=== PATIENT | female | born 1945 | race Caucasian/White ===

== ENCOUNTER 2022-04-07 16:17 | Inpatient (IN) | payer MEDICARE, OTHER, SELFPAY ==
--- NOTE | ~2022-04-07 | XR_ITS ---
EXAMINATION: XR CHEST CLINICAL INFORMATION: Worsening shortness of breath COMPARISON: CT chest 04/07/2022 TECHNIQUE: Frontal view of the chest was obtained. FINDINGS: The lungs are slightly hyperexpanded and there are bilateral upper lobe predominant chronic emphysematous changes. There are multiple overlapping bronchovascular structures overlying the right lower lung zone. No definite focal opacities are seen. There is no pleural effusion or pneumothorax. Cardiomediastinal contours are unremarkable. Structures of the chest wall are intact. There is dense contrast within the stomach from recent fluoroscopic evaluation.. XR/XR chest 1V IMPRESSION: Chronic changes of the lungs without acute process.
--- NOTE | ~2022-04-07 | US_ITS ---
EXAMINATION: US PELVIS CLINICAL INFORMATION: Mass seen on CT scan. Status post hysterectomy and left nephrectomy. COMPARISON: CT scan of 04/07/2022. TECHNIQUE: Ultrasound of the pelvis is performed using both transabdominal and transvaginal transducers along with Doppler. Transvaginal imaging is performed due to inadequate visualization transabdominally. FINDINGS: UTERUS: Status post hysterectomy. ADNEXA: By history, patient is status post left oophorectomy. No left adnexal masses appreciated. RIGHT OVARY MEASURES: 3.1 x 3.5 x 2.9 cm. Volume of 16.5. There is normal vascular flow present. There are 2 simple-appearing cysts, one measuring 3.1 x 3.1 x 2.4 cm in size and the other measuring 0.9 x 0.7 x 0.7 cm in size. No suspicious solid masses identified. US/US pelvic and transvaginal IMPRESSION: Status post hysterectomy and left oophorectomy. Two adjacent simple-appearing right adnexal cysts.
--- NOTE | ~2022-04-07 | US_ITS ---
EXAMINATION: US VENOUS ULTRASOUND WITH DOPPLER LOWER EXTREMITY, LEFT CLINICAL INFORMATION: Edema. COMPARISON: None TECHNIQUE: Ultrasound of the deep veins is performed from the hip to the calf with compression sonography and color and pulse Doppler assessment. Spectral analysis with color-flow imaging is performed. FINDINGS: There is normal venous compression and respiratory variation and augmented flow. The visualized common femoral vein, superficial femoral vein, profunda femoral vein, popliteal vein, and the trifurcation region shows no evidence of deep venous thrombosis. There is no significant popliteal fossa cyst. If the patient's symptoms persist, followup ultrasound in 5 days 7 days might be of value to exclude proximal propagation from a non-visualized calf vein. US/US venous duplex LE LT IMPRESSION: No DVT demonstrated in the left lower extremity.
--- NOTE | ~2022-04-07 | CT_ITS ---
EXAMINATION: CT ANGIOGRAM OF THE CHEST WITH CONTRAST (CT PULMONARY ANGIOGRAM FOR PE) CT ABDOMEN/PELVIS WITH CONTRAST CLINICAL INFORMATION: Reason for Exam + dimer , sob . Diffuse abdominal pain. COMPARISON: None TECHNIQUE: Prior to contrast administration, noncontrast localization images were obtained. Subsequently, multidetector volumetric imaging was performed from the thoracic inlet through the pubic symphysis following the administration of 85 mL Omnipaque 350 intravenous contrast. Postcontrast images of the chest were acquired during the pulmonary angiographic phase, while imaging through the abdomen and pelvis was performed during the portal venous phase. No contrast reaction reported Sagittal, coronal, and MIP oblique sagittal reformatted images were obtained on the CT workstation, uploaded to PACS, and reviewed. This CT examination was performed using dose optimization techniques as appropriate, variously including the following: *Automated exposure control *Adjustment of mA and/or kV according to patient size (this includes techniques or standardized protocols for targeted exams where dose is matched to indication/reason for exam; i.e. extremities or head) *Use of iterative reconstruction technique Total exam dose-length product 539 mGy-cm FINDINGS: QUALITY OF STUDY/CONTRAST BOLUS: Satisfactory. PULMONARY ARTERIES: No central or segmental pulmonary emboli. THORACIC AORTA: No aneurysm or dissection. LUNG: Moderate to severe emphysema. Diffuse mild bronchial thickening without bronchiectasis. No pulmonary nodules, masses or consolidation. PLEURA: No pleural effusion or pneumothorax. MEDIASTINUM: Normal heart size. Triple vessel coronary calcifications. No pericardial effusion. No hilar or mediastinal lymphadenopathy. No evidence of septal bowing or right heart strain. No reflux of contrast into the hepatic veins to suggest elevated right heart pressures. CHEST WALL/AXILLA: No axillary or internal mammary lymphadenopathy. HEPATOBILIARY: Liver normal in size, contour and morphology. No suspicious lesions. No intra or extrahepatic biliary dilation. Gallbladder unremarkable. PANCREAS: No pancreatic mass or inflammation. There are a few coarse calcifications scattered throughout the pancreas consistent with sequela of previous pancreatitis. SPLEEN: Unremarkable. ADRENAL GLANDS: Unremarkable. morphology demonstrating symmetric enhancement. There are benign bilateral simple renal cysts. No follow-up required. No suspicious renal cysts or masses. No hydronephrosis or perinephric abnormality.. GASTROINTESTINAL TRACT: No bowel related abnormalities. Normal appendix. PELVIC VISCERA: There is a 3.3 cm cyst in the adnexa, below a 2.3 cm solid appearing structure which may represent the right ovary, although could represent an ovarian mass. Left ovary not seen. Hysterectomy. LYMPH NODES: No lymphadenopathy. PERITONEUM/BODY WALL: Unremarkable. VASCULAR STRUCTURES: Status post aortic iliac endovascular stent graft repair. A left renal artery stent is also present. Vascular structures are patent. OSSEOUS STRUCTURES: No acute or suspicious osseous abnormalities. CT/CT abdomen pelvis w IV con IMPRESSION: * No pulmonary embolism. * No acute findings within the chest, abdomen or pelvis. * Moderate to severe emphysema. * Triple vessel coronary calcifications. * There is a 3.3 cm cyst in the right adnexa, below a 2.3 cm solid appearing structure which may represent the right ovary, although could represent an ovarian mass. Recommend nonemergent pelvic ultrasound for further evaluation VTE: negative
--- NOTE | ~2022-04-07 | NM_ITS ---
Lexiscan Myocardial perfusion study Indication: Coronary artery disease, assess for ischemia Technique: The patient was brought in for a Lexiscan perfusion study on 04/17/2022 and was injected 0.4 mg of Lexiscan intravenously. Within a minute of this injection 25 mCi of sestamibi was given intravenously. Images were obtained using the SPECT gamma camera interlaced with the gating device. Images were obtained in supine position. Resting perfusion study was performed on 04/16/2022. Patient was administered 25 mCi of sestamibi intravenously at rest. Images were then obtained in supine position. Images were processed with the software and compared side to side in short axis, horizontal long axis and vertical long axis views. Total DLP 93mGy-cm. Findings: Raw acquisition reviewed. Arms by the patient's side. The stress perfusion study showed diminished tracer uptake in the apical part of anterior wall. This is more prominent with CT attenuation correction. Mildly reduced tracer uptake in the basal part of inferior septum and distal inferior wall. No significant change with CT attenuation correction. The gated study shows normal LV systolic function with calculated LVEF of 51%. LV cavity is normal in size. The gated study shows normal wall thickening and contraction of segments. Resting study shows diminished tracer uptake in the distal part of inferior wall, inferolateral wall. There is also adjacent GI tracer uptake. Slightly reduced tracer uptake in the distal part of anterior wall. Gating at rest reveals normal wall motion with ejection fraction at 64%. The findings are consistent with probable mild fixed apical anterior defect. Fixed basal inferior/inferoseptal defect. Probable fixed distal inferior defect but there is also subdiaphragmatic uptake. Overall, suboptimal. NM/NM jovany perf SPECT rest & str Impression: 1. 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 Suboptimal study. 2. Gated LVEF is 51% during stress and 64% during rest. 3. Transient ischemic dilatation not present. EKG component of the test reported separately.
--- NOTE | ~2022-04-07 | FL_ITS ---
EXAMINATION: FL BARIUM SWALLOW CLINICAL INFORMATION: Epigastric pain and dysphagia. COMPARISON: None. TECHNIQUE: Barium swallow examination is performed using fluoroscopic evaluation in addition to multiple fluoroscopic spot views. The patient is imaged both upright and prone and using both thick and thin sulfate along with effervescent granules. Fluoroscopy time: 1.9 minutes. DAP: 4.917 Gy-cm2. Images: 35. FINDINGS: There is normal apposition of the focal cords while saying E . There is normal elevation of the soft palate while saying candy . Patient swallowed half-inch diameter barium tablet without difficulty. There was 1 episode of coughing during the procedure at which time there was noted to be some barium present above the cords consistent with penetration but not luis aspiration. No Zenker's diverticulum identified. No cricopharyngeal hypertrophy. There is noted to be generalized hypomotility of the esophagus with some tertiary contractions being evident. No persistent esophageal stricture is identified. No mucosal abnormality is seen. There were times of columnization of the esophagus where the gastroesophageal junction did not open; however, a couple of times the gastroesophageal junction appeared unremarkable. The above finding could be related to achalasia or esophageal emptying dysfunction of other etiology. There was no gastroesophageal reflux with water siphon test. FL/FL barium swallow IMPRESSION: No esophageal stricture or mucosal abnormality identified. 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 Single episode of pharyngeal penetration without tracheal aspiration.
--- NOTE | ~2022-04-07 | CT_ITS ---
EXAMINATION: CT ABDOMEN AND PELVIS WITH CONTRAST CLINICAL INFORMATION: Lower abdominal pain COMPARISON: CT abdomen pelvis with IV contrast 04/07/2022. TECHNIQUE: Multidetector volumetric images were obtained from the superior aspect of the liver through the pubic symphysis following administration 85 mL of Omnipaque 350 intravenous contrast. Sagittal and coronal reformatted images were obtained on the technologist's workstation. Oral contrast: No This CT examination was performed using dose optimization techniques as appropriate, variously including the following: *Automated exposure control *Adjustment of mA and/or kV according to patient size (this includes techniques or standardized protocols for targeted exams where dose is matched to indication/reason for exam; i.e. extremities or head) *Use of iterative reconstruction technique DLP: 419 mGy-cm FINDINGS: LUNG BASES: Heart size is normal. There is left basilar atelectasis.. Mild thickening of left inferior major fissure is noted. LIVER, GALLBLADDER, AND BILIARY TREE: The liver is normal in size, shape, and attenuation. No focal hepatic lesion or biliary ductal dilatation is present. The gallbladder is unremarkable with no evidence of radiopaque gallstones, gallbladder wall thickening, or obvious pericholecystic inflammatory changes. PANCREAS: Unremarkable. SPLEEN: Unremarkable. ADRENAL GLANDS: Unremarkable. KIDNEYS AND URETERS: The kidneys are normal in size, shape, and attenuation. No hydronephrosis, hydroureter, or calculi seen. No perinephric stranding. There is a 2.9 x 2.5 cm cyst midpole right kidney. A punctate left cortical renal cyst as well. Bilateral extrarenal kidney pelvises are noted. BLADDER: The bladder is distended without bladder wall thickening or radiopaque calculi. GASTROINTESTINAL TRACT: There is scattered stool and gas seen throughout the colon without distention. The small bowel loops are normal caliber. There is no free air or free fluid. Mild persisting of mesentery is seen in the right mid pelvis but no pneumatosis, free air, edema or abnormal lymph nodes seen. It is best visualized on coronal images 23 through 34/6. No free air or free fluid seen. Minimal left paracolic fluid collection is seen. ABDOMINAL WALL: There is a small area of fluid collection the left proximal inguinal ring measuring 2.6 x 2.4 cm and 12 Hounsfield units. No solid component seen. Minimal edema seen in the lower anterior abdominal wall.. LYMPH NODES: No abnormal size lymph nodes seen. VASCULAR: Mild atherosclerotic aneurysmal changes seen in the proximal abdominal aorta with 3.4 x 3.2 cm measurements. There is aortoiliac graft stent from the distal abdominal aorta to common femoral arteries a left renal stent is noted in place. PELVIC VISCERA: Unremarkable. OSSEOUS STRUCTURES: Mild degenerative disc changes L4-L5 and 11-2 disc levels is noted. No aggressive lytic or sclerotic process seen. CT/CT abdomen pelvis w IV con IMPRESSION: 1. Mild mesenteric edema in the right mid pelvis but no pneumatosis, free air or free fluid seen. 2. Minimal left paracolic fluid collection. 3. Small fluid collection in the left proximal inguinal ring. 4. Mild constipation. 5. Bilateral renal cysts. No radiopaque renal calculi or hydronephrosis. Fleischner guidelines were followed.
[2022-04-07 17:35] VITALS: BP 144/90; PULSE 82; RESP 16; O2SAT 92; BMI 23.0
--- NOTE | 2022-04-07 17:44 | ECG_ITS ---
Test Reason : CHEST PAIN Blood Pressure : / mmHG Vent. Rate : 077 BPM Atrial Rate : 077 BPM P-R Int : 148 ms QRS Dur : 082 ms QT Int : 386 ms P-R-T Axes : 050 055 065 degrees QTc Int : 436 ms Artifact in tracing Sinus rhythm with occasional Premature ventricular complexes Otherwise normal ECG No previous ECGs available Referred By: Generic ED Physician Electronically Signed By:ZOFIA DAIGLE
[2022-04-07 18:30] LABS: MANUAL DIFF FLAG NO
[2022-04-07 18:31] LABS: Basophils Percent Auto 0.3 % (0-2); Eosinophils Absolute Auto 0.1 X10*3/uL (0.0-0.4); Eosinophils Percent Auto 0.8 % (0-4); Hematocrit 46.4 % (37.0-47.0); Hemoglobin 15.8 g/dl (12.0-16.0); Imm Gran Abs Auto 0.06 X10*3/uL (0.00-0.03); Imm Gran Pct Auto 0.7 % (0.0-0.4); Lymphocytes Absolute Auto 0.9 X10*3/uL (1.2-4.9); Lymphocytes Percent Auto 10.4 % (20-40); Mean Corpuscular HGB Conc 34.1 g/dl (31.0-35.0); Mean Corpuscular Hemoglobin 32.3 pg (27.0-33.0); Mean Corpuscular Volume 94.9 fL (80.0-98.0); Mean Platelet Volume 9.8 fL (9.4-12.3); Monocytes Absolute Auto 0.9 X10*3/uL (0.1-1.2); Monocytes Percent Auto 10.3 % (2-11); Neutrophils Absolute Auto 6.9 x10*3/uL (2.0-8.3); Neutrophils Percent Auto 77.5 % (45-73); Platelet Count 243 X10*3/uL (160-400); Red Blood Count 4.89 X10*6/uL (4.20-5.50); Red Cell Distribution Width 14.6 % (11.0-16.0); White Blood Count 8.8 X10*3/uL (4.8-10.8)
--- NOTE | 2022-04-07 18:31 | PC.NURSE ---
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 AOx 4 neuros intact ABD soft tender with some guarding LUQ and LLQ. IV access obtained labs collected and sent. Placed on 1.5 L of O2 does not wear at baseline.
[2022-04-07 19:05] VITALS: BP 147/84; PULSE 84; RESP 21; O2SAT 95
--- NOTE | 2022-04-07 19:14 | ED.GENADULT ---
HPI - General Adult General Chief complaint: Abdominal Pain Stated complaint: sob abd pain, back Time Seen by Provider: 04/07/22 18:27 Source: patient Mode of arrival: ambulatory Limitations: no limitations History of Present Illness HPI narrative: This is a 76-year-old female history of COPD, CHF, aortic valve repair years ago presenting to the emergency department with multiple complaints x2 weeks. Patient reports she has been having diffuse abdominal pain that radiates in her back described as constant in nature, progressively worsening, alternates between an aching and stabbing pain. Also complaining of worsening shortness of breath particularly with exertion but also experiencing at at rest. Patient tells me when she walks she feels very winded and this is very unlike her. She reports her lower extremities have also been more swollen than usual, she reports bilateral lower extremities are swollen. Patient reports that she was at [facility] for 3 days few days before Edward she was hospitalized for COPD/CHF. She tells me that she got an ultrasound of bilateral lower extremities done which was normal Related Data Allergies Allergy/AdvReac Type Severity Reaction Status Date / Time lisinopril [LISINOPRIL] Allergy Intermediate MUSCLE Verified 04/07/22 20:49 WEAKNESS duloxetine Allergy Unknown Verified 04/07/22 21:08 hydrochlorothiazide AdvReac Unknown Verified 04/07/22 21:07 [facility] Social History Social History Alcohol intake: never Smoked in Last 30 Days: No Use of substances other than those prescribed or required for medical reasons: No Advance Directives: No Advance Directives Information Provided: No Physical Exam ED Vital Signs: Vital Signs - 24 hr 04/07/22 17:35 04/07/22 19:05 04/07/22 20:13 Pulse Rate 82 84 103 H Respiratory Rate 16 21 H 18 Blood Pressure 144/90 H 147/84 H 113/64 Pulse Oximetry 92 95 94 Oxygen Delivery Method Room Air Room Air Room Air 04/07/22 20:51 04/07/22 21:56 04/07/22 23:59 Pulse Rate 85 82 Respiratory Rate 20 20 21 H Blood Pressure 138/91 H 114/73 Pulse Oximetry 93 Oxygen Delivery Method Nasal Cannula Genao BMI result Body Mass Index 23.0 Course Reevaluation(s) Reevaluation #1: CBC appears to be within normal limits. Chemistry pending however normal troponin, BNP slightly elevated 206, patient's bilateral lower extremities edematous, will give 40 of IV Lasix. Influenza, RSV, COVID negative. To note patient was placed on 2 L of nasal cannula after she ambulated as she desaturated down to mid 80s. Time: 21:06 Reevaluation #2: CT of the abdomen pelvis with no acute findings within the chest, abdomen or pelvis. Moderate to severe emphysema noted. No PE. Triple-vessel coronary calcifications noted. 3.3 cm cyst in the right adnexa. 2.3 solid-appearing structure in the right ovary which could represent ovarian mass. Time: 00:09 Medications Administered Discontinued Medications Generic Name Dose Route Start Last Admin Trade Name Freq PRN Reason Stop Dose Admin Furosemide 40 mg 04/07/22 19:36 04/07/22 20:50 Furosemide 40 Mg/4 Ml Vial IVPUSH 04/07/22 19:37 40 mg ONCE ONE Administration Protocol Iohexol 100 ml 04/07/22 22:09 04/07/22 22:09 Iohexol 350 Mg/Ml 100 Ml Infus..Btl IV 04/07/22 22:10 85 ml ONCE ONE Administration Morphine Sulfate 4 mg 04/07/22 19:46 04/07/22 20:51 Morphine Sulfate 4 Mg/Ml Cartridge IVPUSH 04/07/22 19:47 4 mg ONCE ONE Administration Protocol Medical Decision Making Medical Decision Making [facility] Narrative: 76-year-old female who presents shortness of breath, abdominal pain since before . Physical examination with diffusely tender abdomen. No signs of peritonitis however. Concerns for possible PE versus DVT. Unlikely acute abdomen. Differentials include gas pain, UTI, COPD, CHF, ACS. Differential Diagnosis Differential Diagnoses: The differential diagnosis associated with the presentation includes Concerns for possible PE versus DVT. Unlikely acute abdomen. Differentials include gas pain, UTI, COPD, CHF, ACS. Admission/Observation Consideration of admission/observation: Escalation of care including admission/observation considered Patient should be admitted to the hospital Consult Healthcare Provider Management of the patient was discussed with: Hospitalist Lab Data [facility] Lab Attestation statement: I reviewed the patient's lab results. Result Diagrams: 04/07/22 20:50 04/07/22 21:20 Labs: Lab Results 04/07/22 04/07/22 04/07/22 Range/Units 18:24 18:24 18:24 WBC 8.8 (4.8-10.8) X10*3/uL RBC 4.89 (4.20-5.50) X10*6/uL Hgb 15.8 (12.0-16.0) g/dl Hct 46.4 (37.0-47.0) % MCV 94.9 (80.0-98.0) fL MCH 32.3 (27.0-33.0) pg MCHC 34.1 (31.0-35.0) g/dl RDW 14.6 (11.0-16.0) % Plt Count 243 (160-400) X10*3/uL MPV 9.8 (9.4-12.3) fL Immature Gran % (Auto) 0.7 H (0.0-0.4) % Neut % (Auto) 77.5 H (45-73) % Lymph % (Auto) 10.4 L (20-40) % Pine % (Auto) 10.3 (2-11) % Eos % (Auto) 0.8 (0-4) % Baso % (Auto) 0.3 (0-2) % Lymph # (Auto) 0.9 L (1.2-4.9) X10*3/uL Pine # (Auto) 0.9 (0.1-1.2) X10*3/uL Eos # (Auto) 0.1 (0.0-0.4) X10*3/uL Baso # (Auto) 0.0 (0.0-0.2) X10*3/uL Abs Immat Gran (auto) 0.06 H (0.00-0.03) X10*3/uL Absolute Neuts (auto) 6.9 (2.0-8.3) x10*3/uL Absolute Nucleated RBC 0.000 (0.0-0.012) X10*3/uL Nucleated RBC % (auto) 0.0 (0.0-0.2) /100WBC D-Dimer High Sensitivty NG/ML Sodium (135-145) mmol/L Potassium (3.3-5.1) mmol/L Chloride (96-108) mmol/L Carbon Dioxide (22-29) mmol/L Anion Gap (12-20) BUN (9-16) mg/dL Creatinine (0.5-1.4) mg/dL Estim Creat Clear Calc Estimated GFR Random Glucose (60-115) mg/dL Calcium (8.4-10.2) mg/dL Total Bilirubin (0.0-1.0) mg/dL Direct Bilirubin (0.0-0.5) mg/dL AST (5-31) U/L ALT (0-31) U/L Alkaline Phosphatase (39-117) U/L Troponin I High Sens 7.0 (<3.5-17.0) ng/L B-Natriuretic Peptide 206 H (<100) pg/mL Total Protein (6.5-8.0) g/dL Albumin (3.5-5.0) g/dL Lipase (8-78) U/L Urine Color Urine Appearance Urine pH (5.0-9.0) Ur Specific Martin (1.005-1.025) Urine Protein (Neg-Trace) mg/dL Urine Glucose (UA) (Negative) mg/dL Urine Ketones (Negative) mg/dL Urine Blood (Negative) Urine Nitrite (Negative) Ur Leukocyte Esterase (Negative) Influenza Type A (PCR) (Negative) Influenza Type B (PCR) (Negative) RSV RNA Qual (PCR) (Negative) SARS-CoV-2 RNA (RT-PCR) (Negative) 04/07/22 04/07/22 04/07/22 Range/Units 19:05 19:14 20:50 WBC 7.5 (4.8-10.8) X10*3/uL RBC 4.39 (4.20-5.50) X10*6/uL Hgb 14.1 (12.0-16.0) g/dl Hct 41.9 (37.0-47.0) % MCV 95.4 (80.0-98.0) fL MCH 32.1 (27.0-33.0) pg MCHC 33.7 (31.0-35.0) g/dl RDW 14.6 (11.0-16.0) % Plt Count 191 (160-400) X10*3/uL MPV 9.2 L (9.4-12.3) fL Immature Gran % (Auto) 0.4 (0.0-0.4) % Neut % (Auto) 74.4 H (45-73) % Lymph % (Auto) 13.2 L (20-40) % Pine % (Auto) 10.3 (2-11) % Eos % (Auto) 1.3 (0-4) % Baso % (Auto) 0.4 (0-2) % Lymph # (Auto) 1.0 L (1.2-4.9) X10*3/uL Pine # (Auto) 0.8 (0.1-1.2) X10*3/uL Eos # (Auto) 0.1 (0.0-0.4) X10*3/uL Baso # (Auto) 0.0 (0.0-0.2) X10*3/uL Abs Immat Gran (auto) 0.03 (0.00-0.03) X10*3/uL Absolute Neuts (auto) 5.6 (2.0-8.3) x10*3/uL Absolute Nucleated RBC 0.000 (0.0-0.012) X10*3/uL Nucleated RBC % (auto) 0.0 (0.0-0.2) /100WBC D-Dimer High Sensitivty 816 NG/ML Sodium (135-145) mmol/L Potassium (3.3-5.1) mmol/L Chloride (96-108) mmol/L Carbon Dioxide (22-29) mmol/L Anion Gap (12-20) BUN (9-16) mg/dL Creatinine (0.5-1.4) mg/dL Estim Creat Clear Calc Estimated GFR Random Glucose (60-115) mg/dL Calcium (8.4-10.2) mg/dL Total Bilirubin (0.0-1.0) mg/dL Direct Bilirubin (0.0-0.5) mg/dL AST (5-31) U/L ALT (0-31) U/L Alkaline Phosphatase (39-117) U/L Troponin I High Sens (<3.5-17.0) ng/L B-Natriuretic Peptide (<100) pg/mL Total Protein (6.5-8.0) g/dL Albumin (3.5-5.0) g/dL Lipase (8-78) U/L Urine Color Urine Appearance Urine pH (5.0-9.0) Ur Specific Martin (1.005-1.025) Urine Protein (Neg-Trace) mg/dL Urine Glucose (UA) (Negative) mg/dL Urine Ketones (Negative) mg/dL Urine Blood (Negative) Urine Nitrite (Negative) Ur Leukocyte Esterase (Negative) Influenza Type A (PCR) NEGATIVE (Negative) Influenza Type B (PCR) NEGATIVE (Negative) RSV RNA Qual (PCR) NEGATIVE (Negative) SARS-CoV-2 RNA (RT-PCR) NEGATIVE (Negative) 04/07/22 04/07/22 04/07/22 Range/Units 21:20 21:20 22:18 WBC (4.8-10.8) X10*3/uL RBC (4.20-5.50) X10*6/uL Hgb (12.0-16.0) g/dl Hct (37.0-47.0) % MCV (80.0-98.0) fL MCH (27.0-33.0) pg MCHC (31.0-35.0) g/dl RDW (11.0-16.0) % Plt Count (160-400) X10*3/uL MPV (9.4-12.3) fL Immature Gran % (Auto) (0.0-0.4) % Neut % (Auto) (45-73) % Lymph % (Auto) (20-40) % Pine % (Auto) (2-11) % Eos % (Auto) (0-4) % Baso % (Auto) (0-2) % Lymph # (Auto) (1.2-4.9) X10*3/uL Pine # (Auto) (0.1-1.2) X10*3/uL Eos # (Auto) (0.0-0.4) X10*3/uL Baso # (Auto) (0.0-0.2) X10*3/uL Abs Immat Gran (auto) (0.00-0.03) X10*3/uL Absolute Neuts (auto) (2.0-8.3) x10*3/uL Absolute Nucleated RBC (0.0-0.012) X10*3/uL Nucleated RBC % (auto) (0.0-0.2) /100WBC D-Dimer High Sensitivty NG/ML Sodium 140 (135-145) mmol/L Potassium 3.8 (3.3-5.1) mmol/L Chloride 102 (96-108) mmol/L Carbon Dioxide 29 (22-29) mmol/L Anion Gap 13 (12-20) BUN 8 L (9-16) mg/dL Creatinine 0.63 (0.5-1.4) mg/dL Estim Creat Clear Calc 64.8 Estimated GFR > 60 Random Glucose 92 (60-115) mg/dL Calcium 9.1 (8.4-10.2) mg/dL Total Bilirubin 0.6 (0.0-1.0) mg/dL Direct Bilirubin 0.2 (0.0-0.5) mg/dL AST 22 (5-31) U/L ALT 37 H (0-31) U/L Alkaline Phosphatase 58 (39-117) U/L Troponin I High Sens 8.1 (<3.5-17.0) ng/L B-Natriuretic Peptide (<100) pg/mL Total Protein 6.1 L (6.5-8.0) g/dL Albumin 3.9 (3.5-5.0) g/dL Lipase 16 (8-78) U/L Urine Color Yellow Urine Appearance Clear Urine pH 7.0 (5.0-9.0) Ur Specific Martin <= 1.005 (1.005-1.025) Urine Protein Negative (Neg-Trace) mg/dL Urine Glucose (UA) Negative (Negative) mg/dL Urine Ketones Negative (Negative) mg/dL Urine Blood Negative (Negative) Urine Nitrite Negative (Negative) Ur Leukocyte Esterase Negative (Negative) Influenza Type A (PCR) (Negative) Influenza Type B (PCR) (Negative) RSV RNA Qual (PCR) (Negative) SARS-CoV-2 RNA (RT-PCR) (Negative) Independent Interpretation I performed an independent interpretation of an: CT Scan Radiology Impression Discussion of test interpretation with radiology: I have reviewed the radiologist's reading. Independent Historian Clinical information obtained from an independent historian. History obtained from or confirmed by: Other (Cells) External Record Review External record reviewed: Office record, Outpatient record, Prior outpatient labs and Prior outpatient radiology Tests considered The following testing was considered but not selected: Ultrasound, CT. Core Measures AMI core measures followed: Yes Measure exclusions: not indicated Critical Care Time Critical Care Time Critical Care Time: No Discharge Plan Discharge Clinical Impression: Shortness of breath, Abdominal pain, Bilateral lower extremity edema Patient Disposition: Admitted As Inpatient
[2022-04-07 19:30] LABS: B Type Natriuretic Peptide 206 pg/mL (<100)
[2022-04-07 19:35] LABS: D Dimer High Sensitivity 816 NG/ML
[2022-04-07 19:52] LABS: Influenza A PCR NEGATIVE (Negative); Influenza B PCR NEGATIVE (Negative); Resp Syncy Virus RNA Qual PCR NEGATIVE (Negative); SARS COV2 PCR INHOUSE NEGATIVE (Negative)
[2022-04-07 20:13] VITALS: BP 113/64; PULSE 103; RESP 18; O2SAT 94
[2022-04-07] MEDS: Furosemide 40 MG/4 ML VIAL IVPUSH (20:50)
[2022-04-07 20:51] VITALS: RESP 20
[2022-04-07] MEDS: Morphine Sulfate 4 MG/ML CARTRIDGE IVPUSH (20:51)
--- NOTE | 2022-04-07 20:51 | PC.NURSE ---
Assumed care of patient. Alert and oriented. No apparent distress. Patient placed on O2 supplement of 0.5L NC. h/o COPD. O2Sat on RA was 90%, O2Sat increased to 94% at 0.5L.
[2022-04-07 20:57] LABS: MANUAL DIFF FLAG NO
[2022-04-07 20:59] LABS: Basophils Percent Auto 0.4 % (0-2); Eosinophils Absolute Auto 0.1 X10*3/uL (0.0-0.4); Eosinophils Percent Auto 1.3 % (0-4); Hematocrit 41.9 % (37.0-47.0); Hemoglobin 14.1 g/dl (12.0-16.0); Imm Gran Abs Auto 0.03 X10*3/uL (0.00-0.03); Imm Gran Pct Auto 0.4 % (0.0-0.4); Lymphocytes Percent Auto 13.2 % (20-40); Mean Corpuscular HGB Conc 33.7 g/dl (31.0-35.0); Mean Corpuscular Hemoglobin 32.1 pg (27.0-33.0); Mean Corpuscular Volume 95.4 fL (80.0-98.0); Mean Platelet Volume 9.2 fL (9.4-12.3); Monocytes Absolute Auto 0.8 X10*3/uL (0.1-1.2); Monocytes Percent Auto 10.3 % (2-11); Neutrophils Absolute Auto 5.6 x10*3/uL (2.0-8.3); Neutrophils Percent Auto 74.4 % (45-73); Platelet Count 191 X10*3/uL (160-400); Red Blood Count 4.39 X10*6/uL (4.20-5.50); Red Cell Distribution Width 14.6 % (11.0-16.0); White Blood Count 7.5 X10*3/uL (4.8-10.8)
--- NOTE | 2022-04-07 21:01 | PC.NURSE ---
administered furosemide and morphine IV push per JUN. Administration of meds delayed due to critical pt that came in to the ED needing immediate attention.
[2022-04-07 21:47] LABS: Alanine Aminotransferase 37 U/L (0-31); Albumin Level 3.9 g/dL (3.5-5.0); Alkaline Phosphatase 58 U/L (39-117); Anion Gap 13 (12-20); Aspartate Amino Transferase 22 U/L (5-31); Bilirubin Direct 0.2 mg/dL (0.0-0.5); Bilirubin Total 0.6 mg/dL (0.0-1.0); Blood Urea Nitrogen 8 mg/dL (9-16); Calcium 9.1 mg/dL (8.4-10.2); Carbon Dioxide 29 mmol/L (22-29); Chloride 102 mmol/L (96-108); Creatinine Clr Calc Pharmacy 64.8; Estimated Glomerular Filt Rate > 60; Glucose Random 92 mg/dL (60-115); Lipase 16 U/L (8-78); Potassium 3.8 mmol/L (3.3-5.1); Sodium 140 mmol/L (135-145); Total Protein 6.1 g/dL (6.5-8.0)
[2022-04-07 21:56] VITALS: BP 138/91; PULSE 85; RESP 20; O2SAT 93
[2022-04-07] MEDS: iohexoL 350 MG/ML 100 ML INFUS..BTL IV (22:09)
[2022-04-07 22:11] LABS: Troponin-I High Sensitivity 8.1 ng/L (<3.5-17.0)
[2022-04-07 22:30] LABS: Appearance Urine Clear; Color Urine Yellow; Glucose Urine UA Negative (Negative); Leukocyte Esterase Urine Negative (Negative); Nitrite Urine Negative (Negative); Specific Gravity - Urine <= 1.005 (1.005-1.025); Urine Blood Negative (Negative); Urine Ketones Negative (Negative); Urine Protein Negative (Neg-Trace)
[2022-04-07 23:59] VITALS: BP 114/73; PULSE 82; RESP 21
[2022-04-08] VITALS (11 sets, daily range): BP systolic 97–138; BP diastolic 53–84; PULSE 58–78; RESP 14–21; TEMP 36–37.2; O2SAT 93–99; BMI 22.6
--- NOTE | 2022-04-08 00:16 | MHC.EDTECH ---
[facility]'s Medical Records called at 0015 for records per Kelly Kohli.awaiting for fax.
--- NOTE | 2022-04-08 01:18 | P.HPHOSP_ITS ---
History of Present Illness Date of Service: 04/08/22 Chief Complaint: abd pain 76-year-old female with past medical history of CHF, COPD, CAD, peripheral vascular disease, AAA repair presents to the hospital with complaints of abdominal pain that starts in the center of her abdomen, radiates to the back, patient reports that her symptoms started about her 2 weeks now worsening over the past few days. Patient reports that she was discharged from [facility] about 2 weeks ago and her pain started right before discharge. Patient reports that she was treated for CHF as well as COPD at [facility]. On discharge she felt better but has now had recurrent symptoms of shortness of breath with minimal exertion, fatigue and lower extremity swelling. patient reports no cough, and no increased sputum production. she reports the pain is diffuse across her abdomen, constant most of the time, 8/10, radiating to the back, certain movements and exacerbated or improved pain. She denies any fever, no chills, has burning sensation in the abdomen, reports no urinary symptoms. On arrival to the ED patient noted to drop her O2 to 83% on ambulation to the bathroom, patient had to be brought back to her bed because she did not tolerate the walk. Patient was placed on nasal cannula 2 L satting 93%. Labs are significant for WBC count of 8.8, otherwise unremarkable, BNP of 206, troponin negative Left lower extremity venous duplex negative for any DVT Chest CT angiogram negative for PE, no acute findings within the chest abdomen or pelvis. Emphysema, triple-vessel coronary calcifications, a 3.3 cm cyst in the right adnexa recommended pelvic ultrasound [facility] Medical History (Updated 04/08/22 @ 06:53 by Rahat Mejias MD) CAD (coronary artery disease) History of CHF (congestive heart failure) History of COPD Hypertension Family History (Updated 04/08/22 @ 06:53 by Rahat Mejias MD) Other History of CAD (coronary artery disease) Surgical History (Updated 04/08/22 @ 06:53 by Rahat Mejias MD) S/P AAA repair Social History Alcohol intake: never Smoked in Last 30 Days: No Use of substances other than those prescribed or required for medical reasons: No Advance Directives: No Advance Directives Information Provided: No Meds Allergies Allergy/AdvReac Type Severity Reaction Status Date / Time lisinopril [LISINOPRIL] Allergy Intermediate MUSCLE Verified 04/07/22 20:49 WEAKNESS duloxetine Allergy Unknown Verified 04/07/22 21:08 hydrochlorothiazide AdvReac Unknown Verified 04/07/22 21:07 Active Medications: Current Medications Pharmacy Consult (Consult Rx Perform Med Rec) 1 each MISCELLANE ONCE PRN PRN Reason: Consult order Home Medications Medication Instructions Recorded Confirmed Last Taken Type Caltrate with Vitamin D3 04/08/22 Unknown History Centrum Silver 04/08/22 Unknown History albuterol sulfate 2.5 mg/3 mL 2 vial inhalation Q4H PRN wheezing 04/08/22 04/08/22 Unknown History (0.083 %) solution for nebulization amlodipine 5 mg tablet 1 tab PO DAILY 04/08/22 04/08/22 04/06/22 History aspirin 04/08/22 Unknown History atenolol 50 mg tablet 1 tab PO DAILY 04/08/22 04/08/22 Unknown History atorvastatin 40 mg tablet 1 tab PO DAILY 04/08/22 04/08/22 Unknown History celecoxib 200 mg capsule 1 cap PO DAILY 04/08/22 04/08/22 Unknown History diazepam 5 mg tablet 1 tab PO BEDTIME PRN restless legs 04/08/22 04/08/22 Unknown History fluticasone fur. 100 mcg-umeclid 1 puff inhalation DAILY 04/08/22 04/08/22 Unknown History 62.5 mcg-vilant 25 mcg inhalat.powder (Trelegy Ellipta) fluticasone propionate 50 2 spray intranasal QAM 04/08/22 04/08/22 Unknown History mcg/actuation nasal spray,suspension furosemide 20 mg tablet 1 tab PO BID 04/08/22 04/08/22 Unknown History melatonin 1 tab PO BEDTIME PRN Insomnia 04/08/22 04/08/22 Unknown History omeprazole 20 mg capsule,delayed 1 cap PO DAILY 04/08/22 04/08/22 Unknown History release pregabalin 150 mg capsule 1 cap PO BID 04/08/22 04/08/22 Unknown History pregabalin 50 mg capsule 1 cap PO BID PRN no longer taking 04/08/22 Unknown History pregabalin 75 mg capsule 1 cap PO BID 04/08/22 04/08/22 Unknown History vitamin E 04/08/22 Unknown History Physical Exam Vital Signs and Narrative: Vital Signs: Last Vital Signs Temp 98.7 F 04/08/22 00:27 Pulse 78 04/08/22 00:27 Resp 21 H 04/08/22 00:27 BP 124/84 04/08/22 00:27 Pulse Ox 98 04/08/22 00:27 O2 Del Method 04/08/22 00:27 O2 Flow Rate 1 04/08/22 00:27 BMI result Body Mass Index 23.0 Results Labs CBC and Chem 7: 04/07/22 20:50 04/08/22 04:53 Labs: Laboratory Results - last 24 hr 04/07/22 04/07/22 04/07/22 18:24 18:24 18:24 MCV 94.9 MCH 32.3 MCHC 34.1 RDW 14.6 Plt Count 243 MPV 9.8 Immature Gran % (Auto) 0.7 H Neut % (Auto) 77.5 H Lymph % (Auto) 10.4 L [place] % (Auto) 10.3 Eos % (Auto) 0.8 Baso % (Auto) 0.3 Lymph # (Auto) 0.9 L [place] # (Auto) 0.9 Eos # (Auto) 0.1 Baso # (Auto) 0.0 Abs Immat Gran (auto) 0.06 H Absolute Neuts (auto) 6.9 Absolute Nucleated RBC 0.000 Nucleated RBC % (auto) 0.0 D-Dimer High Sensitivty Anion Gap Estim Creat Clear Calc Estimated GFR Random Glucose Calcium Total Bilirubin Direct Bilirubin AST ALT Alkaline Phosphatase Troponin I High Sens 7.0 B-Natriuretic Peptide 206 H Total Protein Albumin Lipase Urine Color Urine Appearance Urine pH Ur Specific [place] Urine Protein Urine Glucose (UA) Urine Ketones Urine Blood Urine Nitrite Ur Leukocyte Esterase Influenza Type A (PCR) Influenza Type B (PCR) RSV RNA Qual (PCR) SARS-CoV-2 RNA (RT-PCR) 04/07/22 04/07/22 04/07/22 19:05 19:14 20:50 MCV 95.4 MCH 32.1 MCHC 33.7 RDW 14.6 Plt Count 191 MPV 9.2 L Immature Gran % (Auto) 0.4 Neut % (Auto) 74.4 H Lymph % (Auto) 13.2 L [place] % (Auto) 10.3 Eos % (Auto) 1.3 Baso % (Auto) 0.4 Lymph # (Auto) 1.0 L [place] # (Auto) 0.8 Eos # (Auto) 0.1 Baso # (Auto) 0.0 Abs Immat Gran (auto) 0.03 Absolute Neuts (auto) 5.6 Absolute Nucleated RBC 0.000 Nucleated RBC % (auto) 0.0 D-Dimer High Sensitivty 816 Anion Gap Estim Creat Clear Calc Estimated GFR Random Glucose Calcium Total Bilirubin Direct Bilirubin AST ALT Alkaline Phosphatase Troponin I High Sens B-Natriuretic Peptide Total Protein Albumin Lipase Urine Color Urine Appearance Urine pH Ur Specific [place] Urine Protein Urine Glucose (UA) Urine Ketones Urine Blood Urine Nitrite Ur Leukocyte Esterase Influenza Type A (PCR) NEGATIVE Influenza Type B (PCR) NEGATIVE RSV RNA Qual (PCR) NEGATIVE SARS-CoV-2 RNA (RT-PCR) NEGATIVE 04/07/22 04/07/22 04/07/22 21:20 21:20 22:18 MCV MCH MCHC RDW Plt Count MPV Immature Gran % (Auto) Neut % (Auto) Lymph % (Auto) [place] % (Auto) Eos % (Auto) Baso % (Auto) Lymph # (Auto) [place] # (Auto) Eos # (Auto) Baso # (Auto) Abs Immat Gran (auto) Absolute Neuts (auto) Absolute Nucleated RBC Nucleated RBC % (auto) D-Dimer High Sensitivty Anion Gap 13 Estim Creat Clear Calc 64.8 Estimated GFR > 60 Random Glucose 92 Calcium 9.1 Total Bilirubin 0.6 Direct Bilirubin 0.2 AST 22 ALT 37 H Alkaline Phosphatase 58 Troponin I High Sens 8.1 B-Natriuretic Peptide Total Protein 6.1 L Albumin 3.9 Lipase 16 Urine Color Yellow Urine Appearance Clear Urine pH 7.0 Ur Specific [place] <= 1.005 Urine Protein Negative Urine Glucose (UA) Negative Urine Ketones Negative Urine Blood Negative Urine Nitrite Negative Ur Leukocyte Esterase Negative Influenza Type A (PCR) Influenza Type B (PCR) RSV RNA Qual (PCR) SARS-CoV-2 RNA (RT-PCR) Imaging Radiologist's Impressions: Impressions Abdomen/Pelvis CT 04/07/22 22:23 IMPRESSION: * No pulmonary embolism. * No acute findings within the chest, abdomen or pelvis. * Moderate to severe emphysema. * Triple vessel coronary calcifications. * There is a 3.3 cm cyst in the right adnexa, below a 2.3 cm solid appearing structure which may represent the right ovary, although could represent an ovarian mass. Recommend nonemergent pelvic ultrasound for further evaluation VTE: negative Chest CTA 04/07/22 22:23 IMPRESSION: * No pulmonary embolism. * No acute findings within the chest, abdomen or pelvis. * Moderate to severe emphysema. * Triple vessel coronary calcifications. * There is a 3.3 cm cyst in the right adnexa, below a 2.3 cm solid appearing structure which may represent the right ovary, although could represent an ovarian mass. Recommend nonemergent pelvic ultrasound for further evaluation VTE: negative Venous Duplex 04/08/22 00:27 IMPRESSION: No DVT demonstrated in the left lower extremity. Assessment and Plan (1) Acute respiratory failure with hypoxia: Status: Acute (2) Abdominal pain: Status: Acute (3) Bilateral lower extremity edema: Status: Acute (4) Elevated brain natriuretic peptide (BNP) level: Status: Acute Plan this is a 76-year-old female with past medical history of COPD, CHF presents to the hospital with complaints of abdominal pain found to be hypoxic # acute hypoxic respiratory failure - possibly secondary to CHF versus COPD less likely, PE negative on CT angiogram - patient noted to be hypoxic on ambulation dropping to 75% at one point - currently on 2 L satting in the 90s - will continue oxygen as required - cardiology consulted- for further recommendation in regards to CHF # abdominal pain - unclear etiology - lipase negative, no CT evidence of acute pancreatitis, CT shows few scattered coarse calcifications throughout the pancreas consistent with sequelae of previous pancreatitis - symptom relief with Tylenol p.r.n. # bilateral lower extremity edema acute CHF - possibly secondary to CHF exacerbation - patient has elevated BNP - will treat with Lasix - strict I&O, low-sodium diet, - cardiology consulted - DVT study negative # hypertension - stable - will continue home antihypertensive # CAD - reported history of CAD - no chest pain - monitor symptoms DVT prophylaxis: Lovenox Time Spent With Patient Time: Total time managing care of this patient today ____ minutes. Quality Stroke Does the patient have a stroke diagnosis?: No VTE Prior VTE?: No VTE Risk Level:: Medical - moderate - high VTE Device Contraindication: Treatment Not Indicated VTE Drug Contraindication: N/A - Med Ordered
--- NOTE | 2022-04-08 02:13 | PC.NURSE ---
Pt resting quietly while daughter is at bedside. No apparent distress.
[2022-04-08] MEDS: Enoxaparin Sodium 40 MG/0.4 ML SYRINGE SUBCUT (02:59)
--- NOTE | 2022-04-08 03:09 | PC.NURSE ---
pt c/o increased pain, Gee Text hospitalist to notify her of patient's increased pain which she rates at 5/10. No apparent distress, no respiratory distress, pt remains at 2L of O2 per provider, pt is able to speak in full sentences
--- NOTE | 2022-04-08 04:06 | PC.NURSE ---
Pt placed on periwick due to desat in the 70s when she ambulates
[2022-04-08 05:23] LABS: Alanine Aminotransferase 34 U/L (0-31); Albumin Level 3.9 g/dL (3.5-5.0); Alkaline Phosphatase 59 U/L (39-117); Anion Gap 12 (12-20); Aspartate Amino Transferase 22 U/L (5-31); Bilirubin Total 0.6 mg/dL (0.0-1.0); Blood Urea Nitrogen 8 mg/dL (9-16); Calcium 9.1 mg/dL (8.4-10.2); Carbon Dioxide 32 mmol/L (22-29); Chloride 98 mmol/L (96-108); Estimated Glomerular Filt Rate > 60; Glucose Random 94 mg/dL (60-115); Sodium 138 mmol/L (135-145); Total Protein 5.8 g/dL (6.5-8.0)
--- NOTE | 2022-04-08 07:25 | PHA.MEDREC ---
Addendum entered by Dl Hair 04/08/22 11:45: Patient daughter came with med list. Patient no longer on celecoxib. Original Note: Pharmacy Consult ? Medication Reconciliation Pharmacy has completed the medication reconciliation. Reviewed med rec done by nursing
--- NOTE | 2022-04-08 09:52 | P.CONCA_ITS ---
History of Present Illness History of Present Illness Date of Service: 04/08/22 Chief complaint: hypoxic resp failure, abd pain Narrative: This is a cardiology consultation regarding possible congestive heart failure. According to patient, she apparently had a myocardial infarction when she was 37 years old. Underwent cardiac catheterization and angioplasty- per [facility] [place], LAD balloon angioplasty. Since that time, she has been doing okay from cardiac without any recurrent issues. She has a history of smoking and last was about 4 years ago. Has COPD. Stated CHF. History of vascular disease as well as AAA repair. Current admissions because of abdominal pain. Additionally, shortness of breath on even mild exertion and sometimes even at rest. Some lower extremity swelling although that seems improved today. No clear anginal- type symptoms. Review of Systems Review of Systems: Yes all other systems are reviewed and are negative Constitutional: Constitutional: Reports as per HPI Eyes: Eyes: Reports as per HPI ENT: Reports as per HPI Cardiovascular: Cardiovascular: Reports as per HPI, Denies acrocyanosis, Denies cool extremities, Denies chest pain, Reports leg edema, Denies lightheadedness, Denies palpitations and Reports dyspnea Respiratory: Respiratory: Reports as per HPI, Reports no additional respiratory complaints and Reports dyspnea Gastrointestinal: Gastrointestinal: Reports as per HPI and Reports no additional gastrointestinal complaints Genitourinary: Genitourinary: Reports as per HPI Musculoskeletal: Musculoskeletal: Reports no additional musculoskeletal com plaints and Reports as per HPI Integumentary/Breasts: Skin/Breast: Reports system reviewed and no additional complaints, except as docu Neurologic: Reports system reviewed and no additional complaints, except as documented and Reports as per HPI Psychiatric: Psychiatric: Reports no additional psychiatric complaints and Reports as per HPI Endocrine: Endocrine: Reports no additional endocrine complaints, Reports as per HPI and Denies palpitations Hematologic/Lymphatic: Hematologic/Lymphatic: Reports no additional hematologic/lymphatic complaints and Reports as per HPI Allergic/Immunologic: Allergic/Immunologic: Reports no additional allergic/immunologic complaints and Reports as per HPI [facility] Past Medical History Medical History (Updated 04/08/22 @ 09:57 by Seun Brar MD) CAD (coronary artery disease) History of CHF (congestive heart failure) History of COPD Hypertension Family History Family History (Updated 04/08/22 @ 09:55 by Seun Brar MD) Mother CHF (congestive heart failure) ICD (implantable cardioverter-defibrillator) in place Father Heart disease Other History of CAD (coronary artery disease) Surgical History Surgical History (Updated 04/08/22 @ 06:53 by Rahat Mejias MD) S/P AAA repair Social History Social History Alcohol intake: never Smoked in Last 30 Days: No Use of substances other than those prescribed or required for medical reasons: No Advance Directives: No Advance Directives Information Provided: No Meds Allergies Allergy/AdvReac Type Severity Reaction Status Date / Time lisinopril [LISINOPRIL] Allergy Intermediate MUSCLE Verified 04/07/22 20:49 WEAKNESS duloxetine Allergy Unknown Verified 04/07/22 21:08 hydrochlorothiazide AdvReac Unknown Verified 04/07/22 21:07 Active Medications: Current Medications Acetaminophen (Acetaminophen 325 Mg Tablet) 650 mg PO Q6H PRN PRN Reason: Pain, Mild (Pain Scale 1-3) Albuterol Sulfate (Albuterol Sulfate (0.083%) 2.5 Mg/3 Ml Vial.Justine) 2.5 mg INHALE Q4H PRN PRN Reason: wheezing Aspirin (Aspirin Enteric Coated 81 Mg Tablet.) 81 mg PO DAILY [facility] Atenolol (Atenolol 50 Mg Tablet) 50 mg PO DAILY [facility]; Protocol Atorvastatin Calcium (Atorvastatin Calcium 40 Mg Tablet) 40 mg PO DAILY [facility] Celecoxib (Celecoxib 200 Mg Capsule) 200 mg PO DAILY [facility] Diazepam (Diazepam 5 Mg Tablet) 1 mg PO BEDTIME PRN PRN Reason: restless legs Docusate Sodium (Docusate Sodium 100 Mg Capsule) 100 mg PO DAILY PRN PRN Reason: Constipation Enoxaparin Sodium (Enoxaparin Sodium 40 Mg/0.4 Ml Syringe) 40 mg SUBCUT DAILY@0600 [facility] Last Admin: 04/08/22 02:59 Dose: 40 mg Fluticasone Propionate (Fluticasone Propionate Nasal 16 Gm [place]) 2 spray NOSTRIL-B DAILY [facility] Furosemide (Furosemide 40 Mg/4 Ml Vial) 40 mg IVPUSH DAILY [facility]; Protocol Melatonin (Melatonin 3 Mg Tablet) 6 mg PO BEDTIME PRN PRN Reason: Sleep Multivitamins/Vitamin C (Multivitamin Tablet) 1 tab PO DAILY [facility] Non-Formulary Medication (Gprrhjxwckk-Rdzisfafp-Vhmahuig [Trelegy Ellipta]) 1 puff INHALE DAILY [facility] Omeprazole (Omeprazole 20 Mg Capsule.Dr) 20 mg PO DAILY@0630 [facility] Ondansetron HCl (Ondansetron Hcl 4 Mg/2 Ml Vial) 4 mg IVPUSH Q8H PRN PRN Reason: Nausea and Vomiting Oxycodone HCl (Oxycodone Hcl Immed Release 5 Mg Tablet) 5 mg PO Q4H PRN PRN Reason: Pain, Severe (Pain Scale 7-10) Pharmacy Consult (Consult Rx Perform Med Rec) 1 each MISCELLANE ONCE PRN PRN Reason: Consult order Pregabalin (Pregabalin 75 Mg Capsule) 75 mg PO BID [facility] Sodium Chloride (0.9 % Sodium Chloride Flush 3 Ml Syringe) 3 ml IVFLUSH QSHIFT [facility] Home Medications Medication Instructions Recorded Confirmed Last Taken Type albuterol sulfate 2.5 mg/3 mL 2 vial inhalation Q4H PRN wheezing 04/08/22 04/08/22 Unknown History (0.083 %) solution for nebulization amlodipine 5 mg tablet 1 tab PO DAILY 04/08/22 04/08/22 04/06/22 History aspirin 81 mg tablet,delayed 81 mg PO DAILY 04/08/22 04/08/22 Unknown History release atenolol 50 mg tablet 1 tab PO DAILY 04/08/22 04/08/22 Unknown History atorvastatin 40 mg tablet 1 tab PO DAILY 04/08/22 04/08/22 Unknown History calcium carbonate 600 mg-vitamin 1 tab PO DAILY 04/08/22 04/08/22 Unknown History D3 5 mcg (200 unit) tablet celecoxib 200 mg capsule 1 cap PO DAILY 04/08/22 04/08/22 Unknown History diazepam 5 mg tablet 1 tab PO BEDTIME PRN restless legs 04/08/22 04/08/22 Unknown History fluticasone fur. 100 mcg-umeclid 1 puff inhalation DAILY 04/08/22 04/08/22 Unknown History 62.5 mcg-vilant 25 mcg inhalat.powder (Trelegy Ellipta) fluticasone propionate 50 2 spray intranasal QAM 04/08/22 04/08/22 Unknown History mcg/actuation nasal spray,suspension furosemide 20 mg tablet 1 tab PO BID 04/08/22 04/08/22 Unknown History melatonin 3 mg tablet 6 mg PO BEDTIME PRN Sleep 04/08/22 04/08/22 Unknown History multivitamin 1 tab PO DAILY 04/08/22 04/08/22 Unknown History omeprazole 20 mg capsule,delayed 1 cap PO DAILY 04/08/22 04/08/22 Unknown History release pregabalin 75 mg capsule 1 cap PO BID 04/08/22 04/08/22 Unknown History vitamin E 268 mg (400 unit) capsule 268 mg PO DAILY 04/08/22 04/08/22 Unknown History Physical Exam Vital Signs: Vital Signs: Last Vital Signs Temp 98.3 F 04/08/22 07:26 Pulse 78 04/08/22 07:26 Resp 14 04/08/22 07:26 BP 138/76 04/08/22 07:26 Pulse Ox 96 04/08/22 07:26 O2 Del Method 04/08/22 07:26 O2 Flow Rate 2 04/08/22 01:16 BMI result Body Mass Index 23.0 Const: General: comfortable and no acute distress Orientation/consciousness: patient oriented x3 HEENT: Other: Unremarkable Head: Yes normal to inspection Neck: Neck: Yes normal visual inspection Chest: Chest palpation & inspection: normal inspection of the chest Resp: Auscultation: rhonchi, wheezes and diminished lung sounds Cardio: Palpation: normal PMI Heart sounds: S1 normal heart sound present, S2 normal heart sound present, no gallops, no murmurs and no rubs GI: Palpation (GI): Soft to palpation Back/Spine/Pelvis: Other: unremarkable Skin: General skin exam: no rashes or lesions noted Neuro: General: patient oriented x3 Extrem: Other: Trace edema General: Yes normal to inspection Psych: Mental Status: mental status grossly normal Objective Labs and Meds Result diagrams: 04/07/22 20:50 04/08/22 04:53 Lab results: Laboratory Results - last 24 hr 04/07/22 04/07/22 04/07/22 18:24 18:24 18:24 WBC 8.8 RBC 4.89 Hgb 15.8 Hct 46.4 MCV 94.9 MCH 32.3 MCHC 34.1 RDW 14.6 Plt Count 243 MPV 9.8 Immature Gran % (Auto) 0.7 H Neut % (Auto) 77.5 H Lymph % (Auto) 10.[address] % (Auto) 10.3 Eos % (Auto) 0.8 Baso % (Auto) 0.3 Lymph # (Auto) 0.[address] # (Auto) 0.9 Eos # (Auto) 0.1 Baso # (Auto) 0.0 Abs Immat Gran (auto) 0.06 H Absolute Neuts (auto) 6.9 Absolute Nucleated RBC 0.000 Nucleated RBC % (auto) 0.0 D-Dimer High Sensitivty Sodium Potassium Chloride Carbon Dioxide Anion Gap BUN Creatinine Estim Creat Clear Calc Estimated GFR Random Glucose Calcium Total Bilirubin Direct Bilirubin AST ALT Alkaline Phosphatase Troponin I High Sens 7.0 B-Natriuretic Peptide 206 H Total Protein Albumin Lipase Urine Color Urine Appearance Urine pH Ur Specific [place] Urine Protein Urine Glucose (UA) Urine Ketones Urine Blood Urine Nitrite Ur Leukocyte Esterase Influenza Type A (PCR) Influenza Type B (PCR) RSV RNA Qual (PCR) SARS-CoV-2 RNA (RT-PCR) 04/07/22 04/07/22 04/07/22 19:05 19:14 20:50 WBC 7.5 RBC 4.39 Hgb 14.1 Hct 41.9 MCV 95.4 MCH 32.1 MCHC 33.7 RDW 14.6 Plt Count 191 MPV 9.2 L Immature Gran % (Auto) 0.4 Neut % (Auto) 74.4 H Lymph % (Auto) 13.[address] % (Auto) 10.3 Eos % (Auto) 1.3 Baso % (Auto) 0.4 Lymph # (Auto) 1.[address] # (Auto) 0.8 Eos # (Auto) 0.1 Baso # (Auto) 0.0 Abs Immat Gran (auto) 0.03 Absolute Neuts (auto) 5.6 Absolute Nucleated RBC 0.000 Nucleated RBC % (auto) 0.0 D-Dimer High Sensitivty 816 Sodium Potassium Chloride Carbon Dioxide Anion Gap BUN Creatinine Estim Creat Clear Calc Estimated GFR Random Glucose Calcium Total Bilirubin Direct Bilirubin AST ALT Alkaline Phosphatase Troponin I High Sens B-Natriuretic Peptide Total Protein Albumin Lipase Urine Color Urine Appearance Urine pH Ur Specific [place] Urine Protein Urine Glucose (UA) Urine Ketones Urine Blood Urine Nitrite Ur Leukocyte Esterase Influenza Type A (PCR) NEGATIVE Influenza Type B (PCR) NEGATIVE RSV RNA Qual (PCR) NEGATIVE SARS-CoV-2 RNA (RT-PCR) NEGATIVE 04/07/22 04/07/22 04/07/22 21:20 21:20 22:18 WBC RBC Hgb Hct MCV MCH MCHC RDW Plt Count MPV Immature Gran % (Auto) Neut % (Auto) Lymph % (Auto) [place] % (Auto) Eos % (Auto) Baso % (Auto) Lymph # (Auto) [place] # (Auto) Eos # (Auto) Baso # (Auto) Abs Immat Gran (auto) Absolute Neuts (auto) Absolute Nucleated RBC Nucleated RBC % (auto) D-Dimer High Sensitivty Sodium 140 Potassium 3.8 Chloride 102 Carbon Dioxide 29 Anion Gap 13 BUN 8 L Creatinine 0.63 Estim Creat Clear Calc 64.8 Estimated GFR > 60 Random Glucose 92 Calcium 9.1 Total Bilirubin 0.6 Direct Bilirubin 0.2 AST 22 ALT 37 H Alkaline Phosphatase 58 Troponin I High Sens 8.1 B-Natriuretic Peptide Total Protein 6.1 L Albumin 3.9 Lipase 16 Urine Color Yellow Urine Appearance Clear Urine pH 7.0 Ur Specific [place] <= 1.005 Urine Protein Negative Urine Glucose (UA) Negative Urine Ketones Negative Urine Blood Negative Urine Nitrite Negative Ur Leukocyte Esterase Negative Influenza Type A (PCR) Influenza Type B (PCR) RSV RNA Qual (PCR) SARS-CoV-2 RNA (RT-PCR) 04/08/22 04:53 WBC RBC Hgb Hct MCV MCH MCHC RDW Plt Count MPV Immature Gran % (Auto) Neut % (Auto) Lymph % (Auto) [place] % (Auto) Eos % (Auto) Baso % (Auto) Lymph # (Auto) [place] # (Auto) Eos # (Auto) Baso # (Auto) Abs Immat Gran (auto) Absolute Neuts (auto) Absolute Nucleated RBC Nucleated RBC % (auto) D-Dimer High Sensitivty Sodium 138 Potassium 4.0 Chloride 98 Carbon Dioxide 32 H Anion Gap 12 BUN 8 L Creatinine 0.68 Estim Creat Clear Calc 60.0 Estimated GFR > 60 Random Glucose 94 Calcium 9.1 Total Bilirubin 0.6 Direct Bilirubin AST 22 ALT 34 H Alkaline Phosphatase 59 Troponin I High Sens B-Natriuretic Peptide Total Protein 5.8 L Albumin 3.9 Lipase Urine Color Urine Appearance Urine pH Ur Specific [place] Urine Protein Urine Glucose (UA) Urine Ketones Urine Blood Urine Nitrite Ur Leukocyte Esterase Influenza Type A (PCR) Influenza Type B (PCR) RSV RNA Qual (PCR) SARS-CoV-2 RNA (RT-PCR) ECG Interpretation: EKG with sinus rhythm at 77/Min; premature ventricular complexes; normal IL and corrected QT. Artifact in tracing. Imaging Radiologist's impression: Impressions Abdomen/Pelvis CT 04/07/22 22:23 IMPRESSION: * No pulmonary embolism. * No acute findings within the chest, abdomen or pelvis. * Moderate to severe emphysema. * Triple vessel coronary calcifications. * There is a 3.3 cm cyst in the right adnexa, below a 2.3 cm solid appearing structure which may represent the right ovary, although could represent an ovarian mass. Recommend nonemergent pelvic ultrasound for further evaluation VTE: negative Chest CTA 04/07/22 22:23 IMPRESSION: * No pulmonary embolism. * No acute findings within the chest, abdomen or pelvis. * Moderate to severe emphysema. * Triple vessel coronary calcifications. * There is a 3.3 cm cyst in the right adnexa, below a 2.3 cm solid appearing structure which may represent the right ovary, although could represent an ovarian mass. Recommend nonemergent pelvic ultrasound for further evaluation VTE: negative Venous Duplex 04/08/22 00:27 IMPRESSION: No DVT demonstrated in the left lower extremity. Assessment and Plan (1) Acute respiratory failure with hypoxia: Status: Acute (2) Acute CHF: Status: Acute (3) CAD (coronary artery disease): Status: Acute Plan High sensitivity troponins are unremarkable. Cardiac BNP is elevated to 206. Creatinine 0.68. BUN is 8. CT chest reported to have triple-vessel coronary calcifications. No reflux of contrast into hepatic veins suggest elevated right heart pressures. Moderate to severe emphysema. Overall, more likely to have pulmonary etiology for her shortness of breath. However, advanced lung disease could also lead to right heart dysfunction/cor pulmonale leading to leg swelling, although lack of contrast reflux into hepatic veins is against this. Overall, can do empiric diuretics for now. Echocardiogram for cardiac function assessment. W ith regard to coronary disease seen on CT scan, will need ischemic workup at some point. Either stress testing or cardiac catheterization. However, not stable for that at this time. For meds, ASA/statins. Will follow with you. Time Spent With Patient Time: Total time managing care of this patient today 70 minutes. Procedures Date of Service Date of Service: 04/08/22
[2022-04-08] MEDS: Pregabalin 75 MG CAPSULE PO ×2 (09:54→21:07)
[2022-04-08] MEDS: Atorvastatin Calcium 40 MG TABLET PO (09:54)
[2022-04-08] MEDS: 0.9 % Sodium Chloride Flush 3 ML SYRINGE IVFLUSH ×3 (09:55→21:09)
[2022-04-08] MEDS: Furosemide 40 MG/4 ML VIAL IVPUSH (09:55)
[2022-04-08] MEDS: atenoloL 50 MG TABLET PO (09:55)
[2022-04-08] MEDS: Aspirin Enteric Coated 81 MG TABLET.DR PO (09:55)
--- NOTE | 2022-04-08 09:59 | PC.NURSE ---
pt a/o x 4 no sob/maral noted speaks in full sentences. lungs - tight and exp wheezing all lobes. heart sounds - irregular. abd soft and non-tender 6/10 abd pain, bs + x 4 quads. l foot 1+ edema noted. pt see by cardiac md earlier. pt aware of plan of care.
--- NOTE | 2022-04-08 10:02 | CA_ITS ---
Transthoracic Echocardiogram Patient (Last, First, Middle): Rosemarie Eng T Gender: Female Date of : 1945 Age: 76 Procedure Date: 04/08/2022 Procedure Type: Transthoracic Echocardiogram Location: ER Height: 160.02 cm Weight: 58.97 kg BSA: 1.61 m2 Heart Rate: 61 bpm BP: 126 / 63 mmHg Media Analytics Manager: SB Referring MD: Seun Brar MD Symptoms: CHF Study Quality: Adequate w contrast ECG Rhythm: Sinus Conclusions: - The left ventricular systolic function is normal. The calculated ejection fraction is 64% by biplane method. - The basal inferolateral segment is hypokinetic. - The basal inferior segment is akinetic. - There is mild calcification of the aortic valve. - Mild pulmonary hypertension is present. Findings Procedure Information Contrast agent, definity, is being given per protocol without apparent complications. Left Ventricle Normal left ventricular cavity size. There is normal left ventricular wall thickness. The left ventricular systolic function is normal. The calculated ejection fraction is 64% by biplane method. There is evidence of regional wall motion abnormalities. Diastolic function is normal for age. Wall Motion Rest Echo Findings The basal inferolateral segment is hypokinetic. The basal inferior segment is akinetic. Right Ventricle Normal right ventricular cavity size and systolic function. Atria Both atria are normal in size. Aortic Valve There is a normal trileaflet aortic valve. There is mild calcification of the aortic valve. There is no aortic valve stenosis. There is no aortic valve regurgitation. Mitral Valve The mitral valve appears normal. There is trace mitral valve regurgitation. There is no mitral valve stenosis. Pulmonic Valve The pulmonic valve is likely normal. Tricuspid Valve Normal tricuspid valve structure. There is trace tricuspid valve regurgitation. Mild pulmonary hypertension is present. Great Vessels The aortic annulus, sinuses of valsalva, and asc aorta are normal in size. Venous The inferior vena cava is mildly dilated and collapses greater than 50% with inspiration. Pericardium/Pleural There is no evidence of pericardial effusion. Prior Study Comparison No prior study available for comparison. Measurements 2D Linear Measurements IVSd: 0.78 0.6-0.9/0.6-1.0 cm LVIDd: 5.06 3.9-5.3/4.2-5.9 cm LVIDd Index: 3.14 2.4-3.2/2.2-3.1 cm/m2 LVIDs: 3.13 2.0-3.6 cm LVPWd: 0.58 0.7-1.1 cm LA Diam: 3.00 2.7-3.8/3.0-4.0 cm LAIDs Index: 1.86 1.5-2.3 cm/m2 LV Mass: 140.46 67-162/88-224 g LV Mass Index: 87.24 43-95/49-115 g/m2 LVOT Diam: 2.10 3.0+(-)1.3 cm 2D Systolic Function EF 4C: 62.00 >55% EF 2C: 67.30 >55% EF BiP: 63.80 >55% Mitral Valve MV Pk E: 0.78 MV PK A: 1.02 MV Decel Time: 195.00 E/A: 0.80 E'Lateral: 8.81 E'Medial: 6.42 E/E' Med: 12.10 E/E' Lat: 8.80 PHT: 57.00 MVA PHT: 3.86 Decel [place]: 3.98 Aortic Valve AoV Pk Stu: 1.76 AoV Pk Grad: 12.00 JEAN CARLOS: 2.15 LVOT LVOT Pk Stu: 1.08 LVOT Mn Stu: 0.67 LVOT VTI: 0.23 LVOT Pk Grad: 5.00 LVOT Mn Grad: 2.00 LVOT Diam: 2.10 LVOT Area: 3.46 Diastolic Function MV Pk E: 0.78 MV Pk A: 1.02 E/A: 0.80 E'Medial: 6.42 E/E' Med: 12.10 E' Laterial: 8.81 E/E' Lat: 8.80 Right Ventricle TAPSE (mm): 24.60 TVS' Stu: 13.40 Tricuspid Valve TR Pk Stu: 2.69 TR Pk Grad: 29.00 RA Press: 8.00 RVSP: 37.00 Great Vessels Aorta Sinus of Valsalva: 2.90 2.0-3.5 cm Ao Asc: 3.40 2.1-3.4 cm Pulmonary Valve PV Pk Stu: 0.78 Peak PV Grad: 2.00 Updated in Other Vendor System with Status of Final Seun Brar MD electronically signed on 04/08/2022 1:29:11 PM with status of Final
[2022-04-08] MEDS: Multivitamin TABLET 1 TAB PO (10:03)
[2022-04-08] MEDS: Acetaminophen 325 MG TABLET 650 MG PO ×2 (10:06→19:49)
[2022-04-08] MEDS: oxyCODONE HCl Immed Release 5 MG TABLET PO (10:06)
[2022-04-08] MEDS: Docusate Sodium 100 MG CAPSULE PO (10:07)
--- NOTE | 2022-04-08 11:11 | PC.NURSE ---
rn to rn given to tim brandt aware of plan of care for transfer to [facility] [place].
[2022-04-08] MEDS: Fluticasone Propionate Nasal 16 GM SPRAY 2 SPRAY NOSTRIL-B (11:18)
--- NOTE | 2022-04-08 11:22 | PC.NURSE ---
pt is having bedside echocardiogram.
--- NOTE | 2022-04-08 12:24 | PM.EVENT ---
Event Note Date of Service: 04/08/22 Event Note: Patient seen and evaluated this morning Generally feeling mild improvement since admission To add DuoNeb for notable wheezes Continue Lasix Cardiology input appreciated Continue to wean down oxygen as tolerated Time Spent With Patient Time: Total time managing care of this patient today ____ minutes.
--- NOTE | 2022-04-08 12:36 | MHC.CM.PN ---
met with pt who lives alone,pt is covid vax x 5 has own ride home is independent cm intervention is not expected to be needed
[2022-04-08] MEDS: Albuterol Sulfate (0.083%) 2.5 MG/3 ML VIAL.NEB INHALE (20:54)
[2022-04-08] MEDS: diazePAM 2 MG TABLET 1 MG PO (21:07)
[2022-04-08] MEDS: Melatonin 3 MG TABLET 6 MG PO (21:08)
[2022-04-09] VITALS (8 sets, daily range): BP systolic 97–140; BP diastolic 54–68; PULSE 67–80; RESP 12–20; TEMP 35.8–36.6; O2SAT 92–96; BMI 24.0
[2022-04-09] MEDS: Omeprazole 20 MG CAPSULE.DR PO (06:10)
[2022-04-09] MEDS: Enoxaparin Sodium 40 MG/0.4 ML SYRINGE SUBCUT (06:10)
[2022-04-09] MEDS: Albuterol Sulfate (0.083%) 2.5 MG/3 ML VIAL.NEB INHALE (08:05)
[2022-04-09] MEDS: Multivitamin TABLET 1 TAB PO (09:26)
[2022-04-09] MEDS: atenoloL 50 MG TABLET PO (09:26)
[2022-04-09] MEDS: 0.9 % Sodium Chloride Flush 3 ML SYRINGE IVFLUSH ×2 (09:26→17:29)
[2022-04-09] MEDS: Atorvastatin Calcium 40 MG TABLET PO (09:26)
[2022-04-09] MEDS: Pregabalin 75 MG CAPSULE PO ×2 (09:26→20:17)
[2022-04-09] MEDS: Aspirin Enteric Coated 81 MG TABLET.DR PO (09:26)
[2022-04-09] MEDS: Fluticasone Propionate Nasal 16 GM SPRAY 2 SPRAY NOSTRIL-B (09:27)
--- NOTE | 2022-04-09 11:24 | PM.PNCARD ---
Subjective Subjective Date of Service: 04/09/22 Interval history: No clear anginal-type symptoms. A vague epigastric discomfort. Breathing difficulty still present. Daughter is also at bedside. Review of Systems Review of Systems Yes all other systems are reviewed and are negative Constitutional: Reports as per HPI Eyes: Reports as per HPI Reports as per HPI Cardiovascular: Reports as per HPI, Denies acrocyanosis, Denies cool extremities, Denies chest pain, Denies leg edema, Denies lightheadedness, Denies palpitations and Reports dyspnea Respiratory: Reports as per HPI, Reports no additional respiratory complaints, Reports chest congestion and Reports dyspnea Gastrointestinal: Reports as per HPI and Reports no additional gastrointestinal complaints Comments: epigastric discomfort. Genitourinary: Reports as per HPI Musculoskeletal: Reports no additional musculoskeletal complaints and Reports as per HPI Skin/Breast: Reports system reviewed and no additional complaints, except as docu Reports system reviewed and no additional complaints, except as documented and Reports as per HPI Psychiatric: Reports no additional psychiatric complaints and Reports as per HPI Endocrine: Reports no additional endocrine complaints, Reports as per HPI and Denies palpitations Hematologic/Lymphatic: Reports no additional hematologic/lymphatic complaints and Reports as per HPI Allergic/Immunologic: Reports no additional allergic/immunologic complaints and Reports as per HPI Physical Exam Vital Signs: Last Vital Signs Temp 97.2 F 04/09/22 07:40 Pulse 73 04/09/22 08:07 Resp 18 04/09/22 08:07 BP 125/65 04/09/22 07:40 Pulse Ox 96 04/09/22 07:40 O2 Del Method 04/09/22 07:40 O2 Flow Rate 2 04/09/22 07:40 BMI result Body Mass Index 24.0 Const General: comfortable and no acute distress Orientation/consciousness: patient oriented x3 HEENT Other: Unremarkable Head: Yes normal to inspection Neck Neck: Yes normal visual inspection Chest Chest palpation & inspection: normal inspection of the chest Resp Auscultation: rhonchi, wheezes and diminished lung sounds Cardio Palpation: normal PMI Heart sounds: S1 normal heart sound present, S2 normal heart sound present, no gallops, no murmurs and no rubs GI Palpation (GI): Soft to palpation Back/Spine/Pelvis Other: unremarkable Skin General skin exam: no rashes or lesions noted Neuro General: patient oriented x3 Extrem Other: Trace edema General: Yes normal to inspection Psych Mental Status: mental status grossly normal Objective Labs and Meds Result diagrams: 04/07/22 20:50 04/08/22 04:53 Progress Note: A&P Assessment and plan (1) Acute respiratory failure with hypoxia: Status: Acute (2) CAD (coronary artery disease): Status: Acute Plan High sensitivity troponins are unremarkable. Cardiac BNP is elevated to 206. Creatinine 0.68. BUN is 8. CT chest reported to have triple-vessel coronary calcifications. No reflux of contrast into hepatic veins suggest elevated right heart pressures. Moderate to severe emphysema. Echocardiogram with preserved LVEF at 64%. Basal inferior akinesis and basal inferolateral hypokinesis. Mild aortic valve calcification with mild pulmonary hypertension. Overall suspect her shortness of breath/wheezing is likely all respiratory in nature from COPD. Do not believe this is cardiac in nature. Explained about this to daughter. Slight increase in cardiac BNP could be from right heart strain. Based on CT as well as echo she likely has underlying coronary disease as well but do not think that is causing active shortness of breath at this time. Plan should be to optimize respiratory status as much possible. Then eventually she will need a diagnostic catheterization for coronary assessment. However, not stable for that from respiratory standpoint. With regard to epigastric discomfort, not sure if she is describing pain from diaphragm rather due to respiratory distress. Possibly check for gallbladder issues too. Discussed with daughter at bedside. Discussed with Dr. Salazar. Time Spent With Patient Time: Total time managing care of this patient today 35 minutes. Progress Note: Quality Stroke Does the patient have a stroke diagnosis?: No Procedures Date of Service Date of Service: 04/09/22
[2022-04-09] MEDS: ondansetron HCL 4 MG/2 ML VIAL IVPUSH (13:04)
--- NOTE | 2022-04-09 14:43 | P.PNIM_ITS ---
Subjective Subjective Date of Service: 04/09/22 Interval History: cc: abd pain interval history:still with pian, sob Physical Exam Vital Signs: Vital Signs: Last Vital Signs Temp 96.4 F L 04/09/22 11:34 Pulse 76 04/09/22 11:34 Resp 12 04/09/22 11:34 BP 140/68 H 04/09/22 11:34 Pulse Ox 92 04/09/22 11:34 O2 Del Method 04/09/22 11:34 O2 Flow Rate 2 04/09/22 11:34 BMI result Body Mass Index 24.0 General: AO X 3, no acute distress Resp: diminished bilateral, no accessory muscles used CVS: S1,S2,RRR GI: soft, non tender, non distended Neuro: motor grossly intact, alert Psych: appropriate affect, appropriate insight Objective Data Active Medications Acetaminophen (Acetaminophen 325 Mg Tablet) 650 mg PO Q6H PRN PRN Reason: Pain, Mild (Pain Scale 1-3) Last Admin: 04/08/22 19:49 Dose: 650 mg Documented By: SB Albuterol Sulfate (Albuterol Sulfate (0.083%) 2.5 Mg/3 Ml Vial.[facility]) 2.5 mg INHALE Q4H PRN PRN Reason: wheezing Last Admin: 04/09/22 08:05 Dose: 2.5 mg Documented By: KRIS Lipase/Protease/Amylase (Lipase/Prot/Amylase 24/76/120k 1 Cap Capsule.) 1 cap PO TIDWM [facility] Aspirin (Aspirin Enteric Coated 81 Mg Tablet.) 81 mg PO DAILY [facility] Last Admin: 04/09/22 09:26 Dose: 81 mg Documented By: GERA Atenolol (Atenolol 50 Mg Tablet) 50 mg PO DAILY [facility]; Protocol Last Admin: 04/09/22 09:26 Dose: 50 mg Documented By: GERA Atorvastatin Calcium (Atorvastatin Calcium 40 Mg Tablet) 40 mg PO DAILY [facility] Last Admin: 04/09/22 09:26 Dose: 40 mg Documented By: GERA Celecoxib (Celecoxib 200 Mg Capsule) 200 mg PO DAILY [facility] Last Admin: 04/09/22 09:27 Dose: Not Given Documented By: GERA Non-Admin Reason: Patient Refused Albuterol Sulfate 2.5 mg/ (Ipratropium [place] 0.5 mg) 0 mg INHALE RQ6H WHILE AWAKE [facility] Last Admin: 04/09/22 08:05 Dose: Not Given Documented By: KRIS Non-Admin Reason: Med Not Available Diazepam (Diazepam 2 Mg Tablet) 1 mg PO BEDTIME PRN PRN Reason: restless legs Last Admin: 04/08/22 21:07 Dose: 1 mg Documented By: SB Docusate Sodium (Docusate Sodium 100 Mg Capsule) 100 mg PO DAILY PRN PRN Reason: Constipation Last Admin: 04/08/22 10:07 Dose: 100 mg Documented By: MILAGROS Enoxaparin Sodium (Enoxaparin Sodium 40 Mg/0.4 Ml Syringe) 40 mg SUBCUT DAILY@0600 [facility] Last Admin: 04/09/22 06:10 Dose: 40 mg Documented By: SB Fluticasone Propionate (Fluticasone Propionate Nasal 16 Gm [place]) 2 spray NOSTRIL-B DAILY [facility] Last Admin: 04/09/22 09:27 Dose: 2 spray Documented By: GERA Melatonin (Melatonin 3 Mg Tablet) 6 mg PO BEDTIME PRN PRN Reason: Sleep Last Admin: 04/08/22 21:08 Dose: 6 mg Documented By: SB Melatonin (Melatonin 3 Mg Tablet) 6 mg PO BEDTIME PRN PRN Reason: Insomnia Methylprednisolone Sodium Succinate (Methylprednisolone Sod Succ 40 Mg/Ml Vial) 40 mg IVPUSH Q12H [facility] Multivitamins/Vitamin C (Multivitamin Tablet) 1 tab PO DAILY [facility] Last Admin: 04/09/22 09:26 Dose: 1 tab Documented By: GERA Non-Formulary Medication (Jxxperivqis-Pkzgjsoyh-Ynfwzmyq [Trelegy Ellipta]) 1 puff INHALE DAILY [facility] Omeprazole (Omeprazole 20 Mg Capsule.Dr) 20 mg PO DAILY@0630 [facility] Last Admin: 04/09/22 06:10 Dose: 20 mg Documented By: SB Ondansetron HCl (Ondansetron Hcl 4 Mg/2 Ml Vial) 4 mg IVPUSH Q8H PRN PRN Reason: Nausea and Vomiting Last Admin: 04/09/22 13:04 Dose: 4 mg Documented By: DUNIAORRMelina Oxycodone HCl (Oxycodone Hcl Immed Release 5 Mg Tablet) 5 mg PO Q4H PRN PRN Reason: Pain, Severe (Pain Scale 7-10) Last Admin: 04/08/22 10:06 Dose: 5 mg Documented By: MILAGROS Pharmacy Consult (Consult Rx Perform Med Rec) 1 each MISCELLANE ONCE PRN PRN Reason: Consult order Pregabalin (Pregabalin 75 Mg Capsule) 75 mg PO BID [facility] Last Admin: 04/09/22 09:26 Dose: 75 mg Documented By: GERA Sodium Chloride (0.9 % Sodium Chloride Flush 3 Ml Syringe) 3 ml IVFLUSH QSHIFT [facility] Last Admin: 04/09/22 09:26 Dose: 3 ml Documented By: GERA Labs CBC & Chem 7: 04/07/22 20:50 04/08/22 04:53 Assessment and Plan (1) CAD (coronary artery disease): Status: Acute Plan 76-year-old female with past medical history of COPD, CHF presents to the hospital with complaints of abdominal pain found to be hypoxic acute hypoxic respiratory failure due to copd with acute decopmensation and acute on chronic diastolic chf wean o2 as tolerated steroids, nebs diuresed well, now off lasix abdominal pain suspect chronic pancreatitis start creon outpatient follow up hypertension atenolol CAD asa, statin dvt prophylaxis - lovenox full code reason for continued hospitalization:hypoxia Time Spent With Patient Time: Total time managing care of this patient today ____ minutes. Quality Stroke Does the patient have a stroke diagnosis?: No VTE Prior VTE?: No VTE Risk Level:: Medical - moderate - high VTE Device Contraindication: Treatment Not Indicated VTE Drug Contraindication: N/A - Med Ordered
--- NOTE | 2022-04-09 14:51 | MHC.CM.PN ---
per rounds pt should be ready in 1 to 2 days plan [facility] home
[2022-04-09] MEDS: Lipase/Prot/Amylase 24/76/120K 1 CAP CAPSULE.DR PO (17:29)
[2022-04-09] MEDS: Acetaminophen 325 MG TABLET 650 MG PO (20:17)
[2022-04-09] MEDS: methylPREDNISolone Sod Succ 40 MG/ML VIAL IVPUSH (20:17)
[2022-04-09] MEDS: guaiFENesin 100 MG/5 ML LIQUID PO (20:26)
[2022-04-09] MEDS: oxyCODONE HCl Immed Release 5 MG TABLET PO (22:08)
[2022-04-09] MEDS: Melatonin 3 MG TABLET 6 MG PO (22:08)
[2022-04-09] MEDS: diazePAM 2 MG TABLET 1 MG PO (23:22)
[2022-04-10] VITALS (10 sets, daily range): BP systolic 103–149; BP diastolic 55–79; PULSE 65–84; RESP 14–20; TEMP 36.1–37.6; O2SAT 93–98
[2022-04-10] MEDS: Enoxaparin Sodium 40 MG/0.4 ML SYRINGE SUBCUT (05:53)
[2022-04-10] MEDS: Omeprazole 20 MG CAPSULE.DR PO (05:53)
[2022-04-10 06:16] LABS: Hematocrit 40.7 % (37.0-47.0); Hemoglobin 13.6 g/dl (12.0-16.0); Mean Corpuscular HGB Conc 33.4 g/dl (31.0-35.0); Mean Corpuscular Hemoglobin 31.9 pg (27.0-33.0); Mean Corpuscular Volume 95.3 fL (80.0-98.0); Mean Platelet Volume 9.7 fL (9.4-12.3); Platelet Count 182 X10*3/uL (160-400); Red Blood Count 4.27 X10*6/uL (4.20-5.50); White Blood Count 3.8 X10*3/uL (4.8-10.8)
[2022-04-10 07:28] LABS: Anion Gap 13 (12-20); Blood Urea Nitrogen 16 mg/dL (9-16); Carbon Dioxide 26 mmol/L (22-29); Chloride 95 mmol/L (96-108); Creatinine Clr Calc Pharmacy 57.5; Estimated Glomerular Filt Rate > 60; Glucose Fasting 154 mg/dL (60-99); Magnesium 1.8 mg/dL (1.6-2.6); Potassium 5.4 mmol/L (3.3-5.1); Sodium 129 mmol/L (135-145)
[2022-04-10] MEDS: oxyCODONE HCl Immed Release 5 MG TABLET PO ×3 (08:29→19:54)
[2022-04-10] MEDS: methylPREDNISolone Sod Succ 40 MG/ML VIAL IVPUSH (08:29)
[2022-04-10] MEDS: Pregabalin 75 MG CAPSULE PO ×2 (08:30→22:23)
[2022-04-10] MEDS: Aspirin Enteric Coated 81 MG TABLET.DR PO (08:30)
[2022-04-10] MEDS: Atorvastatin Calcium 40 MG TABLET PO (08:30)
[2022-04-10] MEDS: Multivitamin TABLET 1 TAB PO (08:30)
[2022-04-10] MEDS: Lipase/Prot/Amylase 24/76/120K 1 CAP CAPSULE.DR PO ×3 (08:30→17:12)
[2022-04-10] MEDS: atenoloL 50 MG TABLET PO (08:30)
[2022-04-10] MEDS: Fluticasone Propionate Nasal 16 GM SPRAY 2 SPRAY NOSTRIL-B (08:36)
--- NOTE | 2022-04-10 09:00 | P.CONPL_ITS ---
History of Present Illness History of Present Illness Consult date: 04/10/22 Chief complaint: hypoxic resp failure, abd pain Narrative: This is an inpatient pulmonary consultation. The patient is a 76-year-old woman with known history of COPD on Trelegy who apparently was in usual state [facility] until breath after weekend patient started developing lower extremity edema after receiving a cortisone shot back. She started noticing worsening shortness of breath. She was briefly admitted to [facility]. She was diagnosed heart failure and she was given additional diuretics. The patient also was tested for viral syndromes in the were all negative. She was also told she had a COPD exacerbation. She was felt a little better on discharge. Unfortunately after she started again demonstrating the lower extremity edema and worsening shortness of breath. All of a sudden she started developing epigastric discomfort moderate to severe I which point she was brought to the [facility] ER for further evaluation. She did have some EKG changes. The patient also was found to have an abnormal echocardiogram with some wall motion abnormalities. Although Cardiology was reassured that this is not a primary cardiac issue. Although likely patient is having some cardiac strain from the work of breathing from her underlying COPD. She did have a CTA ruling out pulmonary emboli although she did have extensive emphysema noted. Current the patient is feeling little better although she still having significant shortness breath and cough. Also having significant wheezing. Review of Systems Review of Systems: Yes all other systems are reviewed and are negative Constitutional: Constitutional: Reports as per HPI Eyes: Eyes: Reports as per HPI ENT: Reports as per HPI Cardiovascular: Cardiovascular: Reports as per HPI, Denies acrocyanosis, Denies cool extremities, Denies chest pain, Denies leg edema, Denies lightheadedness, Denies palpitations and Reports dyspnea Respiratory: Respiratory: Reports as per HPI, Reports no additional respiratory complaints, Reports chest congestion and Reports dyspnea Gastrointestinal: Gastrointestinal: Reports as per HPI and Reports no additional gastrointestinal complaints Comments: epigastric discomfort. Genitourinary: Genitourinary: Reports as per HPI Musculoskeletal: Musculoskeletal: Reports no additional musculoskeletal complaints and Reports as per HPI Integumentary/Breasts: Skin/Breast: Reports system reviewed and no additional complaints, except as docu Neurologic: Reports system reviewed and no additional complaints, except as documented and Reports as per HPI Psychiatric: Psychiatric: Reports no additional psychiatric complaints and Reports as per HPI Endocrine: Endocrine: Reports no additional endocrine complaints, Reports as per HPI and Denies palpitations Hematologic/Lymphatic: Hematologic/Lymphatic: Reports no additional hematologic/lymphatic complaints and Reports as per HPI Allergic/Immunologic: Allergic/Immunologic: Reports no additional allergic/immunologic complaints and Reports as per HPI [facility] Past Medical History Medical History (Updated 04/10/22 @ 09:05 by Abraham Jacobsen MD) CAD (coronary artery disease) History of CHF (congestive heart failure) History of COPD Hypertension Family History Family History (Updated 04/08/22 @ 09:55 by Seun Brar MD) Mother CHF (congestive heart failure) ICD (implantable cardioverter-defibrillator) in place Father Heart disease Other History of CAD (coronary artery disease) Surgical History Surgical History (Updated 04/08/22 @ 06:53 by Rahat Mejias MD) S/P AAA repair Social History Social History Household Members: None Housing: House Do you presently have visiting nurse or other home services: No Alcohol intake: never Patient Tobacco Use Status: Former Tobacco user Tobacco use type: Cigarette e-Cigarette/Vaping Use: Never Used Second Hand Smoke Exposure: No service: No Meds Allergies Allergy/AdvReac Type Severity Reaction Status Date / Time lisinopril [LISINOPRIL] Allergy Intermediate MUSCLE Verified 04/07/22 20:49 WEAKNESS duloxetine Allergy Unknown Verified 04/07/22 21:08 hydrochlorothiazide AdvReac Unknown Verified 04/07/22 21:07 Active Medications: Current Medications Acetaminophen (Acetaminophen 325 Mg Tablet) 650 mg PO Q6H PRN PRN Reason: Pain, Mild (Pain Scale 1-3) Last Admin: 04/09/22 20:17 Dose: 650 mg Albuterol Sulfate (Albuterol Sulfate (0.083%) 2.5 Mg/3 Ml Vial.[facility]) 2.5 mg INHALE Q4H PRN PRN Reason: wheezing Last Admin: 04/09/22 08:05 Dose: 2.5 mg Lipase/Protease/Amylase (Lipase/Prot/Amylase 24/76/120k 1 Cap Capsule.) 1 cap PO TIDWM [facility] Last Admin: 04/10/22 08:30 Dose: 1 cap Aspirin (Aspirin Enteric Coated 81 Mg Tablet.) 81 mg PO DAILY [facility] Last Admin: 04/10/22 08:30 Dose: 81 mg Atenolol (Atenolol 50 Mg Tablet) 50 mg PO DAILY [facility]; Protocol Last Admin: 04/10/22 08:30 Dose: 50 mg Atorvastatin Calcium (Atorvastatin Calcium 40 Mg Tablet) 40 mg PO DAILY [facility] Last Admin: 04/10/22 08:30 Dose: 40 mg Celecoxib (Celecoxib 200 Mg Capsule) 200 mg PO DAILY [facility] Last Admin: 04/10/22 08:35 Dose: Not Given Albuterol Sulfate 2.5 mg/ (Ipratropium [place] 0.5 mg) 0 mg INHALE RQ6H WHILE AWAKE [facility] Last Admin: 04/10/22 07:47 Dose: 1 each Diazepam (Diazepam 2 Mg Tablet) 1 mg PO BEDTIME PRN PRN Reason: restless legs Last Admin: 04/09/22 23:22 Dose: 1 mg Docusate Sodium (Docusate Sodium 100 Mg Capsule) 100 mg PO DAILY PRN PRN Reason: Constipation Last Admin: 04/08/22 10:07 Dose: 100 mg Enoxaparin Sodium (Enoxaparin Sodium 40 Mg/0.4 Ml Syringe) 40 mg SUBCUT DAILY@0600 [facility] Last Admin: 04/10/22 05:53 Dose: 40 mg Fluticasone Propionate (Fluticasone Propionate Nasal 16 Gm [place]) 2 spray NOSTRIL-B DAILY [facility] Last Admin: 04/10/22 08:36 Dose: 2 spray Guaifenesin (Guaifenesin 100 Mg/5 Ml Liquid) 5 ml PO Q6H PRN PRN Reason: Cough Last Admin: 04/09/22 20:26 Dose: 5 ml Melatonin (Melatonin 3 Mg Tablet) 6 mg PO BEDTIME PRN PRN Reason: Sleep Last Admin: 04/09/22 22:08 Dose: 6 mg Melatonin (Melatonin 3 Mg Tablet) 6 mg PO BEDTIME PRN PRN Reason: Insomnia Methylprednisolone Sodium Succinate (Methylprednisolone Sod Succ 40 Mg/Ml Vial) 40 mg IVPUSH Q12H [facility] Last Admin: 04/10/22 08:29 Dose: 40 mg Multivitamins/Vitamin C (Multivitamin Tablet) 1 tab PO DAILY [facility] Last Admin: 04/10/22 08:30 Dose: 1 tab Pt Own (Fluticasone- Umeclidin-Vilanter [ Trelegy Ellipta] 100 -62.5-25 Mcg 1 puff INHALE RDAILY [facility] Last Admin: 04/10/22 08:29 Dose: 1 puff Omeprazole (Omeprazole 20 Mg Capsule.Dr) 20 mg PO DAILY@0630 [facility] Last Admin: 04/10/22 05:53 Dose: 20 mg Ondansetron HCl (Ondansetron Hcl 4 Mg/2 Ml Vial) 4 mg IVPUSH Q8H PRN PRN Reason: Nausea and Vomiting Last Admin: 04/09/22 13:04 Dose: 4 mg Oxycodone HCl (Oxycodone Hcl Immed Release 5 Mg Tablet) 5 mg PO Q4H PRN PRN Reason: Pain, Severe (Pain Scale 7-10) Last Admin: 04/10/22 08:29 Dose: 5 mg Pharmacy Consult (Consult Rx Perform Med Rec) 1 each MISCELLANE ONCE PRN PRN Reason: Consult order Pregabalin (Pregabalin 75 Mg Capsule) 75 mg PO BID [facility] Last Admin: 04/10/22 08:30 Dose: 75 mg Sodium Chloride (0.9 % Sodium Chloride Flush 3 Ml Syringe) 3 ml IVFLUSH QSHIFT [facility] Last Admin: 04/09/22 23:31 Dose: Not Given Home Medications Medication Instructions Recorded Confirmed Last Taken Type acetaminophen 500 mg tablet 1,000 mg PO Q6H PRN Back Pain 04/08/22 04/08/22 Unknown History albuterol sulfate 2.5 mg/3 mL 2 vial inhalation Q4H PRN wheezing 04/08/22 04/08/22 Unknown History (0.083 %) solution for nebulization albuterol sulfate 90 mcg/actuation 2 puff inhalation Q4H PRN wheezing 04/08/22 04/08/22 Unknown History aerosol inhaler amlodipine 5 mg tablet 1 tab PO DAILY 04/08/22 04/08/22 04/07/22 09:00 History ascorbic acid (vitamin C) 500 mg 500 mg PO DAILY 04/08/22 04/08/22 04/07/22 09:00 History tablet (Vitamin C) aspirin 81 mg tablet,delayed 81 mg PO DAILY 04/08/22 04/08/22 04/07/22 09:00 History release atenolol 50 mg tablet 1 tab PO DAILY 04/08/22 04/08/22 04/07/22 09:00 History atorvastatin 40 mg tablet 1 tab PO DAILY 04/08/22 04/08/22 04/07/22 09:00 History calcium carbonate 600 mg-vitamin 1 tab PO DAILY 04/08/22 04/08/22 04/07/22 09:00 History D3 5 mcg (200 unit) tablet diazepam 5 mg tablet 1 tab PO BEDTIME PRN restless legs 04/08/22 04/08/22 Unknown History fluticasone fur. 100 mcg-umeclid 1 puff inhalation DAILY 04/08/22 04/08/22 04/07/22 09:00 History 62.5 mcg-vilant 25 mcg inhalat.powder (Trelegy Ellipta) fluticasone propionate 50 2 spray intranasal DAILY 04/08/22 04/08/22 04/07/22 09:00 History mcg/actuation nasal spray,suspension furosemide 20 mg tablet 1 tab PO BID 04/08/22 04/08/22 04/07/22 09:00 History melatonin 5 mg tablet 5 mg PO BEDTIME PRN Insomnia 04/08/22 04/08/22 Unknown History multivitamin 1 tab PO DAILY 04/08/22 04/08/22 04/07/22 09:00 History omeprazole 20 mg capsule,delayed 1 cap PO DAILY@0630 04/08/22 04/08/22 04/07/22 09:00 History release pregabalin 50 mg capsule 1 cap PO BEDTIME 04/08/22 04/08/22 Unknown History pregabalin 75 mg capsule 1 cap PO DAILY 04/08/22 04/08/22 04/07/22 09:00 History vitamin E 268 mg (400 unit) capsule 268 mg PO DAILY 04/08/22 04/08/22 04/07/22 09:00 History Physical Exam Vital Signs: Vital Signs: Last Vital Signs Temp 97.4 F 04/10/22 07:25 Pulse 72 04/10/22 07:48 Resp 18 04/10/22 07:48 BP 136/79 04/10/22 07:25 Pulse Ox 93 04/10/22 07:25 O2 Del Method 04/10/22 07:25 O2 Flow Rate 1 04/10/22 07:25 BMI result Body Mass Index 24.0 General: AO X 3, no acute distress Resp: diminished bilateral, +wheezing,+coughing, no accessory muscles used CVS: S1,S2,RRR GI: soft, + epigastric tender, non distended Neuro: motor grossly intact, alert Psych: appropriate affect, appropriate insight Results Laboratory Findings CBC and BMP: 04/10/22 05:37 04/10/22 05:37 Abnormal lab findings: Abnormal Labs 04/07/22 04/07/22 04/07/22 18:24 18:24 20:50 WBC MPV 9.2 L Immature Gran % (Auto) 0.7 H Neut % (Auto) 77.5 H 74.4 H Lymph % (Auto) 10.4 L 13.2 L Lymph # (Auto) 0.9 L 1.0 L Abs Immat Gran (auto) 0.06 H Sodium Potassium Chloride Carbon Dioxide BUN Fasting Glucose ALT B-Natriuretic Peptide 206 H Total Protein 04/07/22 04/08/22 04/10/22 21:20 04:53 05:37 WBC 3.8 L MPV Immature Gran % (Auto) Neut % (Auto) Lymph % (Auto) Lymph # (Auto) Abs Immat Gran (auto) Sodium Potassium Chloride Carbon Dioxide 32 H BUN 8 L 8 L Fasting Glucose ALT 37 H 34 H B-Natriuretic Peptide Total Protein 6.1 L 5.8 L 04/10/22 05:37 WBC MPV Immature Gran % (Auto) Neut % (Auto) Lymph % (Auto) Lymph # (Auto) Abs Immat Gran (auto) Sodium 129 L Potassium 5.4 H D Chloride 95 L Carbon Dioxide BUN Fasting Glucose 154 H ALT B-Natriuretic Peptide Total Protein Assessment and Plan (1) COPD exacerbation: Status: Acute (2) Acute respiratory failure with hypoxia: Status: Acute (3) Abdominal pain: Status: Acute Plan Continue respiratory therapy Increase Solu-Medrol Increase omeprazole Start azithromycin Barium swallow Continue oxygen to maintain a pulse ox above 90% Blood work Time Spent With Patient Time: Total time managing care of this patient today ____ minutes. Procedures Date of Service Date of Service: 04/10/22
[2022-04-10] MEDS: 0.9 % Sodium Chloride Flush 3 ML SYRINGE IVFLUSH ×3 (09:03→22:27)
--- NOTE | 2022-04-10 10:26 | PM.PNCARD ---
Subjective Subjective Date of Service: 04/10/22 Interval history: She still feels short of breath, wheezing. Overall not feeling good. Review of Systems Review of Systems Yes all other systems are reviewed and are negative Constitutional: Reports as per HPI Eyes: Reports as per HPI Reports as per HPI Cardiovascular: Reports as per HPI, Denies acrocyanosis, Denies cool extremities, Denies chest pain, Denies leg edema, Denies lightheadedness, Denies palpitations and Reports dyspnea Respiratory: Reports as per HPI, Reports no additional respiratory complaints, Reports chest congestion and Reports dyspnea Gastrointestinal: Reports as per HPI and Reports no additional gastrointestinal complaints Musculoskeletal: Reports no additional musculoskeletal complaints and Reports as per HPI Skin/Breast: Reports system reviewed and no additional complaints, except as docu Reports system reviewed and no additional complaints, except as documented and Reports as per HPI Psychiatric: Reports no additional psychiatric complaints and Reports as per HPI Endocrine: Reports no additional endocrine complaints, Reports as per HPI and Denies palpitations Hematologic/Lymphatic: Reports no additional hematologic/lymphatic complaints and Reports as per HPI Allergic/Immunologic: Reports no additional allergic/immunologic complaints and Reports as per HPI Physical Exam Vital Signs: Last Vital Signs Temp 97.4 F 04/10/22 07:25 Pulse 72 04/10/22 07:48 Resp 18 04/10/22 07:48 BP 136/79 04/10/22 07:25 Pulse Ox 93 04/10/22 07:25 O2 Del Method 04/10/22 07:25 O2 Flow Rate 1 04/10/22 07:25 BMI result Body Mass Index 24.0 Const General: comfortable and no acute distress Orientation/consciousness: patient oriented x3 HEENT Other: Unremarkable Head: Yes normal to inspection Neck Neck: Yes normal visual inspection Chest Chest palpation & inspection: normal inspection of the chest Resp Auscultation: rhonchi, wheezes and diminished lung sounds Cardio Palpation: normal PMI Heart sounds: S1 normal heart sound present, S2 normal heart sound present, no gallops, no murmurs and no rubs GI Palpation (GI): Soft to palpation Back/Spine/Pelvis Other: unremarkable Skin General skin exam: no rashes or lesions noted Neuro General: patient oriented x3 Extrem Other: Trace edema General: Yes normal to inspection Psych Mental Status: mental status grossly normal Objective Labs and Meds Result diagrams: 04/10/22 05:37 04/10/22 05:37 Lab results: Laboratory Results - last 24 hr 04/10/22 04/10/22 05:37 05:37 WBC 3.8 L RBC 4.27 Hgb 13.6 Hct 40.7 MCV 95.3 MCH 31.9 MCHC 33.4 RDW 14.0 Plt Count 182 MPV 9.7 Absolute Nucleated RBC 0.000 Nucleated RBC % (auto) 0.0 Sodium 129 L Potassium 5.4 H D Chloride 95 L Carbon Dioxide 26 Anion Gap 13 BUN 16 Creatinine 0.71 Estim Creat Clear Calc 57.5 Estimated GFR > 60 Fasting Glucose 154 H Calcium 9.0 Magnesium 1.8 Imaging Radiologist's impression: Impressions Pelvic/Transvag US 04/08/22 20:11 IMPRESSION: Status post hysterectomy and left oophorectomy. Two adjacent simple-appearing right adnexal cysts. Progress Note: A&P Assessment and plan (1) Acute respiratory failure with hypoxia: Status: Acute (2) CAD (coronary artery disease): Status: Acute Plan Cardiac data- High sensitivity troponins are unremarkable. Cardiac BNP is elevated to 206. CT chest reported to have triple-vessel coronary calcifications. No reflux of contrast into hepatic veins suggest elevated right heart pressures. Moderate to severe emphysema. Echocardiogram with preserved LVEF at 64%. Basal inferior akinesis and basal inferolateral hypokinesis. Mild aortic valve calcification with mild pulmonary hypertension. Current symptoms of shortness of breath/wheezing likely all from COPD. Do not think she has any significant congestive heart failure. With regard to wall motion abnormalities, suspect underlying coronary disease. Ideally, diagnostic catheterization when she is more stable. Currently, she is still wheezing and do not think she can lie flat and hence probably wait for couple more days. Discussed about this with the patient. Do not believe she has any acute or unstable symptoms from cardiac but more than likely, all her shortness of breath and wheezing is from COPD. Explained about this to daughter at bedside. Correct lytes. Discussed with Dr. Salazar. Time Spent With Patient Time: Total time managing care of this patient today 35 minutes. Progress Note: Quality Stroke Does the patient have a stroke diagnosis?: No Procedures Date of Service Date of Service: 04/10/22
--- NOTE | 2022-04-10 10:33 | P.PNIM_ITS ---
Subjective Subjective Date of Service: 04/10/22 Interval History: cc: abd pain interval history:still with pian, sob Physical Exam Vital Signs: Vital Signs: Last Vital Signs Temp 97.4 F 04/10/22 07:25 Pulse 72 04/10/22 07:48 Resp 18 04/10/22 07:48 BP 136/79 04/10/22 07:25 Pulse Ox 93 04/10/22 07:25 O2 Del Method 04/10/22 07:25 O2 Flow Rate 1 04/10/22 07:25 BMI result Body Mass Index 24.0 Const: General: comfortable and no acute distress Orientation/consciousness: patient oriented x3 HEENT: Other: Unremarkable Head: Yes normal to inspection Neck: Neck: Yes normal visual inspection Chest: Chest palpation & inspection: normal inspection of the chest Resp: Auscultation: rhonchi, wheezes and diminished lung sounds Cardio: Palpation: normal PMI Heart sounds: S1 normal heart sound present, S2 normal heart sound present, no gallops, no murmurs and no rubs GI: Palpation (GI): Soft to palpation Back/Spine/Pelvis: Other: unremarkable Skin: General skin exam: no rashes or lesions noted Neuro: General: patient oriented x3 Extrem: Other: Trace edema General: Yes normal to inspection Psych: Mental Status: mental status grossly normal Objective Data Active Medications Acetaminophen (Acetaminophen 325 Mg Tablet) 650 mg PO Q6H PRN PRN Reason: Pain, Mild (Pain Scale 1-3) Last Admin: 04/09/22 20:17 Dose: 650 mg Documented By: TARA Albuterol Sulfate (Albuterol Sulfate (0.083%) 2.5 Mg/3 Ml Vial.[facility]) 2.5 mg INHALE Q4H PRN PRN Reason: wheezing Last Admin: 04/09/22 08:05 Dose: 2.5 mg Documented By: KRIS Lipase/Protease/Amylase (Lipase/Prot/Amylase 24/76/120k 1 Cap Capsule.) 1 cap PO TIDWM [facility] Last Admin: 04/10/22 08:30 Dose: 1 cap Documented By: LISA Aspirin (Aspirin Enteric Coated 81 Mg Tablet.) 81 mg PO DAILY [facility] Last Admin: 04/10/22 08:30 Dose: 81 mg Documented By: LISA Atenolol (Atenolol 50 Mg Tablet) 50 mg PO DAILY [facility]; Protocol Last Admin: 04/10/22 08:30 Dose: 50 mg Documented By: LISA Atorvastatin Calcium (Atorvastatin Calcium 40 Mg Tablet) 40 mg PO DAILY [facility] Last Admin: 04/10/22 08:30 Dose: 40 mg Documented By: LISA Azithromycin (Azithromycin 500 Mg Tablet) 500 mg PO Q24H [facility] Celecoxib (Celecoxib 200 Mg Capsule) 200 mg PO DAILY [facility] Last Admin: 04/10/22 08:35 Dose: Not Given Documented By: LISA Non-Admin Reason: Patient Refused Albuterol Sulfate 2.5 mg/ (Ipratropium [employer] 0.5 mg) 0 mg INHALE RQ6H WHILE AWAKE [facility] Last Admin: 04/10/22 07:47 Dose: 1 each Documented By: OZZIE Diazepam (Diazepam 2 Mg Tablet) 1 mg PO BEDTIME PRN PRN Reason: restless legs Last Admin: 04/09/22 23:22 Dose: 1 mg Documented By: TARA Docusate Sodium (Docusate Sodium 100 Mg Capsule) 100 mg PO DAILY PRN PRN Reason: Constipation Last Admin: 04/08/22 10:07 Dose: 100 mg Documented By: MILAGROS Enoxaparin Sodium (Enoxaparin Sodium 40 Mg/0.4 Ml Syringe) 40 mg SUBCUT DAILY@0600 [facility] Last Admin: 04/10/22 05:53 Dose: 40 mg Documented By: TARA Fluticasone Propionate (Fluticasone Propionate Nasal 16 Gm [place]) 2 spray N OSTRIL-B DAILY [facility] Last Admin: 04/10/22 08:36 Dose: 2 spray Documented By: LISA Guaifenesin (Guaifenesin 100 Mg/5 Ml Liquid) 5 ml PO Q6H PRN PRN Reason: Cough Last Admin: 04/09/22 20:26 Dose: 5 ml Documented By: TARA Melatonin (Melatonin 3 Mg Tablet) 6 mg PO BEDTIME PRN PRN Reason: Sleep Last Admin: 04/09/22 22:08 Dose: 6 mg Documented By: TARA Melatonin (Melatonin 3 Mg Tablet) 6 mg PO BEDTIME PRN PRN Reason: Insomnia Methylprednisolone Sodium Succinate (Methylprednisolone Sod Succ 40 Mg/Ml Vial) 60 mg IVPUSH Q8H [facility] Multivitamins/Vitamin C (Multivitamin Tablet) 1 tab PO DAILY [facility] Last Admin: 04/10/22 08:30 Dose: 1 tab Documented By: LISA Pt Own (Fluticasone- Umeclidin-Vilanter [ Trelegy Ellipta] 100 -62.5-25 Mcg 1 puff INHALE RDAILY [facility] Last Admin: 04/10/22 08:29 Dose: 1 puff Documented By: LISA Omeprazole (Omeprazole 40 Mg Capsule.Dr) 40 mg PO BID@0630,1630 [facility] Ondansetron HCl (Ondansetron Hcl 4 Mg/2 Ml Vial) 4 mg IVPUSH Q8H PRN PRN Reason: Nausea and Vomiting Last Admin: 04/09/22 13:04 Dose: 4 mg Documented By: LISA Oxycodone HCl (Oxycodone Hcl Immed Release 5 Mg Tablet) 5 mg PO Q4H PRN PRN Reason: Pain, Severe (Pain Scale 7-10) Last Admin: 04/10/22 08:29 Dose: 5 mg Documented By: LISA Pharmacy Consult (Consult Rx Perform Med Rec) 1 each MISCELLANE ONCE PRN PRN Reason: Consult order Pregabalin (Pregabalin 75 Mg Capsule) 75 mg PO BID [facility] Last Admin: 04/10/22 08:30 Dose: 75 mg Documented By: LISA Sodium Chloride (0.9 % Sodium Chloride Flush 3 Ml Syringe) 3 ml IVFLUSH QSHIFT [facility] Last Admin: 04/10/22 09:03 Dose: 3 ml Documented By: LISA Labs CBC & Chem 7: 04/10/22 05:37 04/10/22 05:37 Labs: Laboratory Results - last 24 hr 04/10/22 04/10/22 05:37 05:37 MCV 95.3 MCH 31.9 MCHC 33.4 RDW 14.0 Plt Count 182 MPV 9.7 Absolute Nucleated RBC 0.000 Nucleated RBC % (auto) 0.0 Anion Gap 13 Estim Creat Clear Calc 57.5 Estimated GFR > 60 Fasting Glucose 154 H Calcium 9.0 Magnesium 1.8 Assessment and Plan (1) CAD (coronary artery disease): Status: Acute Plan 76-year-old female with past medical history of COPD, CHF presents to the hospital with complaints of abdominal pain found to be hypoxic acute hypoxic respiratory failure due to copd with acute decopmensation and acute on chronic diastolic chf wean o2 as tolerated pulm appreciated solumedrol increased, started azithro, continue nebs diuresed well, now holding lasix abdominal pain differential includes chronic pancreatitis started creon possible PUD, ppi increased hypertension atenolol CAD asa, statin plan for cath when resp status improved dvt prophylaxis - lovenox full code reason for continued hospitalization:hypoxia Time Spent With Patient Time: Total time managing care of this patient today ____ minutes. Quality Stroke Does the patient have a stroke diagnosis?: No VTE Prior VTE?: No VTE Risk Level:: Medical - moderate - high VTE Device Contraindication: Treatment Not Indicated VTE Drug Contraindication: N/A - Med Ordered
[2022-04-10] MEDS: Azithromycin 500 MG TABLET PO (11:06)
[2022-04-10] MEDS: Acetaminophen 325 MG TABLET 650 MG PO ×2 (11:10→19:53)
[2022-04-10 12:27] LABS: Erythrocyte Sedimentation Rate 4 MM/HR (0-20)
[2022-04-10] MEDS: Omeprazole 40 MG CAPSULE.DR PO (15:40)
--- NOTE | 2022-04-10 15:58 | MHC.CM.PN ---
PT HAS RECOMMENDED PULMONARY REHAB, REFERRALS SENT TO [facility] WHO HAVE BOTH OFFERED BEDS. PT REQUESTS TIME TO SPEAK TO HER DAUGHTERS BEFORE CHOOSING. CM WILL CONTINUE TO FOLLOW.
[2022-04-10] MEDS: methylPREDNISolone Sod Succ 40 MG/ML VIAL 60 MG IVPUSH (17:14)
[2022-04-10] MEDS: Melatonin 3 MG TABLET 6 MG PO (22:23)
[2022-04-10] MEDS: diazePAM 2 MG TABLET 1 MG PO (22:24)
[2022-04-11] VITALS (9 sets, daily range): BP systolic 103–130; BP diastolic 49–77; PULSE 64–88; RESP 17–20; TEMP 36.1–36.9; O2SAT 91–98; BMI 25.0
--- NOTE | 2022-04-11 | ECG_ITS ---
Test Reason : chest pain Blood Pressure : / mmHG Vent. Rate : 068 BPM Atrial Rate : 068 BPM P-R Int : 000 ms QRS Dur : 096 ms QT Int : 374 ms P-R-T Axes : 076 060 068 degrees QTc Int : 397 ms Normal sinus rhythm Normal sinus rhythm with PVC's Possible Left atrial enlargement Abnormal ECG When compared with ECG of 07-APR-2022 18:13, No significant changes seen Referred By: Michael Salazar Electronically Signed By:ZOFIA DAIGLE
[2022-04-11] MEDS: methylPREDNISolone Sod Succ 40 MG/ML VIAL 60 MG IVPUSH ×3 (01:58→17:48)
[2022-04-11] MEDS: oxyCODONE HCl Immed Release 5 MG TABLET PO ×4 (02:00→22:00)
[2022-04-11 06:19] LABS: Hematocrit 38.9 % (37.0-47.0); Hemoglobin 13.4 g/dl (12.0-16.0); Mean Corpuscular HGB Conc 34.4 g/dl (31.0-35.0); Mean Corpuscular Hemoglobin 32.4 pg (27.0-33.0); Mean Platelet Volume 9.6 fL (9.4-12.3); Platelet Count 181 X10*3/uL (160-400); Red Blood Count 4.14 X10*6/uL (4.20-5.50); White Blood Count 7.8 X10*3/uL (4.8-10.8)
[2022-04-11] MEDS: Enoxaparin Sodium 40 MG/0.4 ML SYRINGE SUBCUT (06:26)
[2022-04-11] MEDS: Omeprazole 40 MG CAPSULE.DR PO ×2 (06:26→17:49)
[2022-04-11 06:30] LABS: Rheumatoid Factor < 13.0 IU/mL (<15.0)
[2022-04-11 06:33] LABS: Alanine Aminotransferase 22 U/L (0-31); Albumin Level 3.6 g/dL (3.5-5.0); Alkaline Phosphatase 53 U/L (39-117); Anion Gap 12 (12-20); Aspartate Amino Transferase 13 U/L (5-31); Bilirubin Direct 0.2 mg/dL (0.0-0.5); Bilirubin Total 0.4 mg/dL (0.0-1.0); Blood Urea Nitrogen 16 mg/dL (9-16); C Reactive Protein 0.22 mg/dL (< or = 0.50); Carbon Dioxide 25 mmol/L (22-29); Chloride 97 mmol/L (96-108); Creatinine Clr Calc Pharmacy 52.3; Estimated Glomerular Filt Rate > 60; Glucose Fasting 132 mg/dL (60-99); Potassium 5.4 mmol/L (3.3-5.1); Sodium 129 mmol/L (135-145); Total Protein 5.4 g/dL (6.5-8.0)
[2022-04-11] MEDS: Aspirin Enteric Coated 81 MG TABLET.DR PO (10:04)
[2022-04-11] MEDS: Docusate Sodium 100 MG CAPSULE PO (10:04)
[2022-04-11] MEDS: Azithromycin 500 MG TABLET PO (10:04)
[2022-04-11] MEDS: atenoloL 50 MG TABLET PO (10:04)
[2022-04-11] MEDS: Pregabalin 75 MG CAPSULE PO ×2 (10:04→21:19)
[2022-04-11] MEDS: Atorvastatin Calcium 40 MG TABLET PO (10:04)
[2022-04-11] MEDS: Lipase/Prot/Amylase 24/76/120K 1 CAP CAPSULE.DR PO (10:05)
[2022-04-11] MEDS: Multivitamin TABLET 1 TAB PO (10:05)
[2022-04-11] MEDS: Celecoxib 200 MG CAPSULE PO (10:05)
--- NOTE | 2022-04-11 10:10 | P.PNIM_ITS ---
Subjective Subjective Date of Service: 04/11/22 Interval History: cc: abd pain interval history:still with pain, sob Physical Exam Vital Signs: Vital Signs: Last Vital Signs Temp 97.3 F 04/11/22 07:33 Pulse 74 04/11/22 07:37 Resp 18 04/11/22 07:37 BP 130/67 04/11/22 07:33 Pulse Ox 93 04/11/22 07:33 O2 Del Method 04/11/22 07:33 O2 Flow Rate 1 04/11/22 07:33 BMI result Body Mass Index 25.0 Const: General: comfortable and no acute distress Orientation/consciousness: patient oriented x3 HEENT: Other: Unremarkable Head: Yes normal to inspection Neck: Neck: Yes normal visual inspection Chest: Chest palpation & inspection: normal inspection of the chest Resp: Auscultation: rhonchi, wheezes and diminished lung sounds Cardio: Palpation: normal PMI Heart sounds: S1 normal heart sound present, S2 normal heart sound present, no gallops, no murmurs and no rubs GI: Palpation (GI): Soft to palpation Back/Spine/Pelvis: Other: unremarkable Skin: General skin exam: no rashes or lesions noted Neuro: General: patient oriented x3 Extrem: Other: Trace edema General: Yes normal to inspection Psych: Mental Status: mental status grossly normal Objective Data Active Medications Acetaminophen (Acetaminophen 325 Mg Tablet) 650 mg PO Q6H PRN PRN Reason: Pain, Mild (Pain Scale 1-3) Last Admin: 04/10/22 19:53 Dose: 650 mg Documented By: TARA Albuterol Sulfate (Albuterol Sulfate (0.083%) 2.5 Mg/3 Ml Vial.[facility]) 2.5 mg INHALE Q4H PRN PRN Reason: wheezing Last Admin: 04/09/22 08:05 Dose: 2.5 mg Documented By: KRIS Lipase/Protease/Amylase (Lipase/Prot/Amylase 24/76/120k 1 Cap Capsule.) 1 cap PO TIDWM [facility] Last Admin: 04/11/22 10:05 Dose: 1 cap Documented By: LENI Aspirin (Aspirin Enteric Coated 81 Mg Tablet.) 81 mg PO DAILY [facility] Last Admin: 04/11/22 10:04 Dose: 81 mg Documented By: LENI Atenolol (Atenolol 50 Mg Tablet) 50 mg PO DAILY [facility]; Protocol Last Admin: 04/11/22 10:04 Dose: 50 mg Documented By: LENI Atorvastatin Calcium (Atorvastatin Calcium 40 Mg Tablet) 40 mg PO DAILY [facility] Last Admin: 04/11/22 10:04 Dose: 40 mg Documented By: LENI Azithromycin (Azithromycin 500 Mg Tablet) 500 mg PO Q24H [facility] Last Admin: 04/11/22 10:04 Dose: 500 mg Documented By: LENI Celecoxib (Celecoxib 200 Mg Capsule) 200 mg PO DAILY [facility] Last Admin: 04/11/22 10:05 Dose: 200 mg Documented By: LENI Albuterol Sulfate 2.5 mg/ (Ipratropium [place] 0.5 mg) 0 mg INHALE RQ6H WHILE AWAKE [facility] Last Admin: 04/11/22 07:35 Dose: 1 each Documented By: OZZIE Diazepam (Diazepam 2 Mg Tablet) 1 mg PO BEDTIME PRN PRN Reason: restless legs Last Admin: 04/10/22 22:24 Dose: 1 mg Documented By: TARA Docusate Sodium (Docusate Sodium 100 Mg Capsule) 100 mg PO DAILY PRN PRN Reason: Constipation Last Admin: 04/11/22 10:04 Dose: 100 mg Documented By: LENI Enoxaparin Sodium (Enoxaparin Sodium 40 Mg/0.4 Ml Syringe) 40 mg SUBCUT DAILY@0600 [facility] Last Admin: 04/11/22 06:26 Dose: 40 mg Documented By: TARA Fluticasone Propionate (Fluticasone Propionate Nasal 16 Gm [place]) 2 spray NOSTRIL-B DAILY [facility] Last Admin: 04/10/22 08:36 Dose: 2 spray Documented By: LISA Guaifenesin (Guaifenesin 100 Mg/5 Ml Liquid) 5 ml PO Q6H PRN PRN Reason: Cough Last Admin: 04/09/22 20:26 Dose: 5 ml Documented By: TARA Melatonin (Melatonin 3 Mg Tablet) 6 mg PO BEDTIME PRN PRN Reason: Sleep Last Admin: 04/10/22 22:23 Dose: 6 mg Documented By: TARA Melatonin (Melatonin 3 Mg Tablet) 6 mg PO BEDTIME PRN PRN Reason: Insomnia Methylprednisolone Sodium Succinate (Methylprednisolone Sod Succ 40 Mg/Ml Vial) 60 mg IVPUSH Q8H [facility] Last Admin: 04/11/22 01:58 Dose: 60 mg Documented By: TARA Multivitamins/Vitamin C (Multivitamin Tablet) 1 tab PO DAILY [facility] Last Admin: 04/11/22 10:05 Dose: 1 tab Documented By: LENI Pt Own (Fluticasone- Umeclidin-Vilanter [ Trelegy Ellipta] 100 -62.5-25 Mcg 1 puff INHALE RDAILY [facility] Last Admin: 04/10/22 08:29 Dose: 1 puff Documented By: LISA Omeprazole (Omeprazole 40 Mg Capsule.Dr) 40 mg PO BID@0630,1630 [facility] Last Admin: 04/11/22 06:26 Dose: 40 mg Documented By: TARA Ondansetron HCl (Ondansetron Hcl 4 Mg/2 Ml Vial) 4 mg IVPUSH Q8H PRN PRN Reason: Nausea and Vomiting Last Admin: 04/09/22 13:04 Dose: 4 mg Documented By: LISA Oxycodone HCl (Oxycodone Hcl Immed Release 5 Mg Tablet) 5 mg PO Q4H PRN PRN Reason: Pain, Severe (Pain Scale 7-10) Last Admin: 04/11/22 06:44 Dose: 5 mg Documented By: TARA Pharmacy Consult (Consult Rx Perform Med Rec) 1 each MISCELLANE ONCE PRN PRN Reason: Consult order Pregabalin (Pregabalin 75 Mg Capsule) 75 mg PO BID [facility] Last Admin: 04/11/22 10:04 Dose: 75 mg Documented By: LENI Sodium Chloride (0.9 % Sodium Chloride Flush 3 Ml Syringe) 3 ml IVFLUSH QSHIFT [facility] Last Admin: 04/10/22 22:27 Dose: 3 ml Documented By: TARA Labs 04/11/22 05:37 04/11/22 05:37 Labs: Laboratory Results - last 24 hr 04/10/22 04/11/22 04/11/22 11:01 05:37 05:37 MCV 94.0 MCH 32.4 MCHC 34.4 RDW 14.0 Plt Count 181 MPV 9.6 Absolute Nucleated RBC 0.000 Nucleated RBC % (auto) 0.0 ESR 4 Anion Gap 12 Estim Creat Clear Calc 52.3 Estimated GFR > 60 Fasting Glucose 132 H Calcium 9.0 Total Bilirubin 0.4 Direct Bilirubin 0.2 AST 13 ALT 22 Alkaline Phosphatase 53 C-Reactive Protein 0.22 Total Protein 5.4 L Albumin 3.6 Rheumatoid Factor 04/11/22 05:37 MCV MCH MCHC RDW Plt Count MPV Absolute Nucleated RBC Nucleated RBC % (auto) ESR Anion Gap Estim Creat Clear Calc Estimated GFR Fasting Glucose Calcium Total Bilirubin Direct Bilirubin AST ALT Alkaline Phosphatase C-Reactive Protein Total Protein Albumin Rheumatoid Factor < 13.0 Assessment and Plan (1) CAD (coronary artery disease): Status: Acute Plan 76-year-old female with past medical history of COPD, CHF presents to the hospital with complaints of abdominal pain found to be hypoxic acute hypoxic respiratory failure due to copd with acute decopmensation and acute on chronic diastolic chf wean o2 as tolerated pulm appreciated solumedrol, azithro, continue nebs diuresed well, now holding lasix hyponatermia monitor, mild hyperkalemia lokelma, monitor abdominal pain differential includes chronic pancreatitis started creon possible PUD, ppi increased GI eval hypertension atenolol CAD asa, statin plan for cath when resp status improved dvt prophylaxis - lovenox full code reason for continued hospitalization:hypoxia Time Spent With Patient Time: Total time managing care of this patient today ____ minutes. Quality Stroke Does the patient have a stroke diagnosis?: No VTE Prior VTE?: No VTE Risk Level:: Medical - moderate - high VTE Device Contraindication: Treatment Not Indicated VTE Drug Contraindication: N/A - Med Ordered
[2022-04-11] MEDS: Fluticasone Propionate Nasal 16 GM SPRAY 2 SPRAY NOSTRIL-B (10:12)
[2022-04-11] MEDS: 0.9 % Sodium Chloride Flush 3 ML SYRINGE IVFLUSH ×3 (10:23→21:22)
[2022-04-11] MEDS: Sodium Zirconium Cyclosilicate 10 GM POWD.PACK PO (10:29)
[2022-04-11] MEDS: guaiFENesin 100 MG/5 ML LIQUID PO (11:11)
--- NOTE | 2022-04-11 12:54 | P.PNPL_ITS ---
Subjective Subjective Date of Service: 04/11/22 Interval history: The patient was seen on exam. Her breathing is a little better. Although the prednisone is causing her to have difficulty sleeping. She also had a barium swallow demonstrating some abnormal contractions are may be some reflux disease with pharyngeal penetration. No obvious aspiration. Patient continues to have significant epigastric discomfort. Will be evaluated by GI. In the meantime will continue the treatment for the COPD exacerbation. Objective Data Labs 04/11/22 05:37 04/11/22 05:37 Labs: Laboratory Results - last 24 hr 04/11/22 04/11/22 04/11/22 05:37 05:37 05:37 WBC 7.8 RBC 4.14 L Hgb 13.4 Hct 38.9 MCV 94.0 MCH 32.4 MCHC 34.4 RDW 14.0 Plt Count 181 MPV 9.6 Absolute Nucleated RBC 0.000 Nucleated RBC % (auto) 0.0 Sodium 129 L Potassium 5.4 H Chloride 97 Carbon Dioxide 25 Anion Gap 12 BUN 16 Creatinine 0.78 Estim Creat Clear Calc 52.3 Estimated GFR > 60 Fasting Glucose 132 H Calcium 9.0 Total Bilirubin 0.4 Direct Bilirubin 0.2 AST 13 ALT 22 Alkaline Phosphatase 53 C-Reactive Protein 0.22 Total Protein 5.4 L Albumin 3.6 Rheumatoid Factor < 13.0 Review of Systems Review of Systems Yes all other systems are reviewed and are negative Constitutional: Reports as per HPI Eyes: Reports as per HPI Reports as per HPI Cardiovascular: Reports as per HPI, Denies acrocyanosis, Denies cool extremities, Denies chest pain, Denies leg edema, Denies lightheadedness, Denies palpitations and Reports dyspnea Respiratory: Reports as per HPI, Reports no additional respiratory complaints, Reports chest congestion and Reports dyspnea Gastrointestinal: Reports as per HPI and Reports no additional gastrointestinal complaints Comments: epigastric discomfort. Genitourinary: Reports as per HPI Musculoskeletal: Reports no additional musculoskeletal complaints and Reports as per HPI Skin/Breast: Reports system reviewed and no additional complaints, except as docu Reports system reviewed and no additional complaints, except as documented and Reports as per HPI Psychiatric: Reports no additional psychiatric complaints and Reports as per HPI Endocrine: Reports no additional endocrine complaints, Reports as per HPI and Denies palpitations Hematologic/Lymphatic: Reports no additional hematologic/lymphatic complaints and Reports as per HPI Allergic/Immunologic: Reports no additional allergic/immunologic complaints and Reports as per HPI Physical Exam Vital Signs: Vital Signs: Last Vital Signs Temp 98.4 F 04/11/22 11:27 Pulse 71 04/11/22 11:27 Resp 20 04/11/22 11:27 BP 128/77 04/11/22 11:27 Pulse Ox 97 04/11/22 11:27 O2 Del Method 04/11/22 11:27 O2 Flow Rate 1 04/11/22 11:27 BMI result Body Mass Index 25.0 Const: General: comfortable and no acute distress Orientati on/consciousness: patient oriented x3 HEENT: Other: Unremarkable Head: Yes normal to inspection Neck: Neck: Yes normal visual inspection Chest: Chest palpation & inspection: normal inspection of the chest Resp: Auscultation: rhonchi, wheezes and diminished lung sounds Cardio: Palpation: normal PMI Heart sounds: S1 normal heart sound present, S2 normal heart sound present, no gallops, no murmurs and no rubs GI: Palpation (GI): Soft to palpation and Tenderness to palpation present (GI) in the epigastrum Back/Spine/Pelvis: Other: unremarkable Skin: General skin exam: no rashes or lesions noted Neuro: General: patient oriented x3 Extrem: Other: Trace edema General: Yes normal to inspection Psych: Mental Status: mental status grossly normal Procedures Date of Service Date of Service: 04/11/22 Assessment and Plan Assessment and plan (1) COPD exacerbation: Status: Acute (2) Abdominal pain: Status: Acute (3) Acute respiratory failure with hypoxia: Status: Acute Plan continue solumedrol, ok to start decreasing respiratory therapy oxygen to keep pox >92% GI eval Time Spent With Patient Time: Total time managing care of this patient today ____ minutes. Progress Note: Quality Stroke Does the patient have a stroke diagnosis?: No
--- NOTE | 2022-04-11 13:34 | PM.EVENT ---
Event Note Date of Service: 04/11/22 Event Note: GI consult dictated She may have a component of IBS causing her abdominal symptoms. Dicyclomine ordered for symptoms. I do not think she has chronic pancreatitis. Agree with increased ppi dosing to cover any component of acid peptic disease. Consider outpatient EGD if sx continue once cardio/pulmonary issues are stable. Time Spent With Patient Time: Total time managing care of this patient today ____ minutes.
[2022-04-11] MEDS: Dicyclomine HCl 10 MG CAPSULE PO (15:13)
[2022-04-11 16:16] LABS: Troponin-I High Sensitivity 3.8 ng/L (<3.5-17.0)
[2022-04-11] MEDS: polyethylene glycoL 3350 17 GM POWD.PACK PO (19:23)
[2022-04-11 19:42] LABS: Anion Gap 14 (12-20); Blood Urea Nitrogen 22 mg/dL (9-16); Calcium 9.1 mg/dL (8.4-10.2); Carbon Dioxide 26 mmol/L (22-29); Chloride 95 mmol/L (96-108); Creatinine Clr Calc Pharmacy 44.5; Estimated Glomerular Filt Rate 54; Glucose Random 180 mg/dL (60-115); Potassium 5.6 mmol/L (3.3-5.1); Sodium 129 mmol/L (135-145)
[2022-04-11] MEDS: diazePAM 2 MG TABLET 1 MG PO (21:19)
[2022-04-11] MEDS: Melatonin 3 MG TABLET 6 MG PO (21:20)
[2022-04-11] MEDS: Albuterol Sulfate (0.083%) 2.5 MG/3 ML VIAL.NEB INHALE (21:39)
--- NOTE | 2022-04-11 23:56 | CONS_ITS ---
DATE OF SERVICE: 04/11/2022 REFERRING PHYSICIAN: Michael Salazar MD REASON FOR CONSULTATION: Abdominal pain. HISTORY OF PRESENT ILLNESS: The patient is a pleasant 76-year-old woman who was admitted to the hospital on April 08 after presenting to the emergency room with complaints of abdominal pain, leg swelling, and shortness of breath. She was recently hospitalized in [place] for CHF and COPD. At that time report she had epigastric and right upper quadrant pain which radiated to the back that was not addressed. She reports symptoms have been present for about 3 weeks with diffuse abdominal pain now localized to both lower quadrants, which comes and goes and is present on the right side into the back. She has had some epigastric discomfort as well. She describes a longstanding history of reflux and undergoing upper endoscopy as well as colonoscopy many years ago. She has been on omeprazole for about 3 years and reports this generally controls her reflux quite well. She has no dysphagia, hematemesis, or melena. As part of evaluation here, she underwent CT scanning of the abdomen and pelvis, which is reviewed and showed a few coarse calcifications in the pancreas. There was no evidence of pancreatic mass or inflammatory change. The patient denies any prior history of pancreatitis and does not drink alcohol. Other studies done include a barium swallow, which showed no esophageal stricture, but did show esophageal hypomotility and tertiary contractions consistent with dysmotility. No reflux was seen. PAST MEDICAL HISTORY: 1. Coronary artery disease. 2. CHF. 3. COPD. 4. Abdominal aortic aneurysm, status post repair. 5. Hypertension. 6. Elevated cholesterol. 7. Gastroesophageal reflux disease. CURRENT MEDICATIONS: Her current medication list is reviewed in the chart. ALLERGIES: MULTIPLE MEDICATION ALLERGIES ARE REVIEWED. FAMILY HISTORY: This is reviewed with the patient and is noncontributory. SOCIAL HISTORY: There is no current tobacco, alcohol, or substance abuse. She does have a history of smoking in the past. REVIEW OF SYSTEMS: SKIN: No pruritus. HEENT: Negative. CARDIOPULMONARY: No shortness of breath or chest pain currently. GASTROINTESTINAL: As above. GENITOURINARY: Negative. NEUROPSYCHIATRIC: Negative. PHYSICAL EXAMINATION: GENERAL: Shows a pleasant female, lying comfortably in bed VITAL SIGNS: Reviewed in electronic medical records and are stable. SKIN: Anicteric. HEENT: Shows no scleral icterus. NECK: Without lymphadenopathy or thyromegaly. LUNGS: Show some decreased breath sounds bilaterally. HEART: Shows a regular rate and rhythm. S1, S2. No murmur. ABDOMEN: Soft. Bowel sounds are present. There is no focal guarding, tenderness, or rebound. No organomegaly is palpable. EXTREMITIES: Without edema. LABORATORY DATA: Including her chemistries, CBC, and imaging studies are reviewed. IMPRESSION: Abdominal pain. Her symptoms may be related to the irritable bowel syndrome. Given the GI nature of her complaints, her omeprazole has been increased to cover any possible reflux component which may be contributing to her symptoms. I would recommend low-dose dicyclomine 10 mg 3 times daily to see if this helps some of her abdominal complaints. The patient and her daughter were both concerned about bowel obstruction as she has had this in the past that required surgery, and we reviewed the CT results, which showed no evidence for this. It is not clear that the few calcifications in her pancreas represent chronic pancreatitis, and I doubt that as a cause of her symptoms. Her pancreatic enzyme supplementation could be stopped. If she has persistent complaints of abdominal discomfort, I would consider elective outpatient endoscopy once her pulmonary and cardiac status is stabilized. Thanks for asking me to see her. I will follow her in the hospital with you. MD GILBERT Caldwell/ANNAMARIE / [id number] MTDD
[2022-04-12] VITALS (8 sets, daily range): BP systolic 115–126; BP diastolic 61–77; PULSE 63–88; RESP 15–20; TEMP 36.1–37.1; O2SAT 92–99; BMI 25.4
[2022-04-12] MEDS: methylPREDNISolone Sod Succ 40 MG/ML VIAL 60 MG IVPUSH ×3 (00:40→16:06)
[2022-04-12 02:08] LABS: Immunoglobulin E 15 kU/L (<OR=114)
[2022-04-12] MEDS: oxyCODONE HCl Immed Release 5 MG TABLET PO ×2 (02:57→20:08)
[2022-04-12] MEDS: Enoxaparin Sodium 40 MG/0.4 ML SYRINGE SUBCUT (05:45)
[2022-04-12] MEDS: Omeprazole 40 MG CAPSULE.DR PO ×2 (05:45→16:06)
[2022-04-12 06:25] LABS: Hematocrit 38.2 % (37.0-47.0); Hemoglobin 12.9 g/dl (12.0-16.0); Mean Corpuscular HGB Conc 33.8 g/dl (31.0-35.0); Mean Corpuscular Hemoglobin 32.3 pg (27.0-33.0); Mean Corpuscular Volume 95.5 fL (80.0-98.0); Mean Platelet Volume 9.9 fL (9.4-12.3); Platelet Count 180 X10*3/uL (160-400); Red Cell Distribution Width 14.2 % (11.0-16.0); White Blood Count 7.5 X10*3/uL (4.8-10.8)
[2022-04-12 06:31] LABS: Anion Gap 14 (12-20); Blood Urea Nitrogen 22 mg/dL (9-16); Carbon Dioxide 25 mmol/L (22-29); Chloride 98 mmol/L (96-108); Creatinine Clr Calc Pharmacy 60.5; Estimated Glomerular Filt Rate > 60; Glucose Fasting 123 mg/dL (60-99); Potassium 5.2 mmol/L (3.3-5.1); Sodium 132 mmol/L (135-145)
[2022-04-12] MEDS: Multivitamin TABLET 1 TAB PO (08:09)
[2022-04-12] MEDS: Pregabalin 75 MG CAPSULE PO ×2 (08:10→20:07)
[2022-04-12] MEDS: atenoloL 50 MG TABLET PO (08:10)
[2022-04-12] MEDS: Atorvastatin Calcium 40 MG TABLET PO (08:10)
[2022-04-12] MEDS: Aspirin Enteric Coated 81 MG TABLET.DR PO (08:10)
[2022-04-12] MEDS: Azithromycin 500 MG TABLET PO (08:10)
[2022-04-12] MEDS: Celecoxib 200 MG CAPSULE PO (08:10)
[2022-04-12] MEDS: Dicyclomine HCl 10 MG CAPSULE PO ×3 (08:10→16:06)
[2022-04-12] MEDS: 0.9 % Sodium Chloride Flush 3 ML SYRINGE IVFLUSH ×3 (08:12→22:39)
[2022-04-12] MEDS: Fluticasone Propionate Nasal 16 GM SPRAY 2 SPRAY NOSTRIL-B (08:14)
--- NOTE | 2022-04-12 10:42 | HO.PM.IMPN ---
Subjective Subjective Date of Service: 04/12/22 Interval History: cc: abd pain interval history:still with pain, sob Physical Exam Vital Signs: Vital Signs: Last Vital Signs Temp 98.7 F 04/12/22 08:00 Pulse 76 04/12/22 08:00 Resp 20 04/12/22 08:00 BP 126/61 04/12/22 08:00 Pulse Ox 94 04/12/22 08:00 O2 Del Method 04/12/22 08:00 O2 Flow Rate 2 04/12/22 08:00 BMI result Body Mass Index 25.4 Const: General: comfortable and no acute distress Orientation/consciousness: patient oriented x3 HEENT: Other: Unremarkable Head: Yes normal to inspection Neck: Neck: Yes normal visual inspection Chest: Chest palpation & inspection: normal inspection of the chest Resp: Auscultation: rhonchi, wheezes and diminished lung sounds Cardio: Palpation: normal PMI Heart sounds: S1 normal heart sound present, S2 normal heart sound present, no gallops, no murmurs and no rubs GI: Palpation (GI): Soft to palpation and Tenderness to palpation present (GI) in the epigastrum Back/Spine/Pelvis: Other: unremarkable Skin: General skin exam: no rashes or lesions noted Neuro: General: patient oriented x3 Extrem: Other: Trace edema General: Yes normal to inspection Psych: Mental Status: mental status grossly normal Objective Data Active Medications Acetaminophen (Acetaminophen 325 Mg Tablet) 650 mg PO Q6H PRN PRN Reason: Pain, Mild (Pain Scale 1-3) Last Admin: 04/10/22 19:53 Dose: 650 mg Documented By: TARA Albuterol Sulfate (Albuterol Sulfate (0.083%) 2.5 Mg/3 Ml Vial.Neb) 2.5 mg INHALE Q4H PRN PRN Reason: wheezing Last Admin: 04/11/22 21:39 Dose: 2.5 mg Documented By: HOME Aspirin (Aspirin Enteric Coated 81 Mg Tablet.) 81 mg PO DAILY [facility] Last Admin: 04/12/22 08:10 Dose: 81 mg Documented By: BEST Atenolol (Atenolol 50 Mg Tablet) 50 mg PO DAILY [facility]; Protocol Last Admin: 04/12/22 08:10 Dose: 50 mg Documented By: BEST Atorvastatin Calcium (Atorvastatin Calcium 40 Mg Tablet) 40 mg PO DAILY [facility] Last Admin: 04/12/22 08:10 Dose: 40 mg Documented By: BEST Azithromycin (Azithromycin 500 Mg Tablet) 500 mg PO Q24H [facility] Last Admin: 04/12/22 08:10 Dose: 500 mg Documented By: BEST Celecoxib (Celecoxib 200 Mg Capsule) 200 mg PO DAILY [facility] Last Admin: 04/12/22 08:10 Dose: 200 mg Documented By: BEST Albuterol Sulfate 2.5 mg/ (Ipratropium [place] 0.5 mg) 0 mg INHALE RQ6H WHILE AWAKE [facility] Last Admin: 04/12/22 07:15 Dose: 1 each Documented By: DOMINICK Diazepam (Diazepam 2 Mg Tablet) 1 mg PO BEDTIME PRN PRN Reason: restless legs Last Admin: 04/11/22 21:19 Dose: 1 mg Documented By: JOSELITO Dicyclomine HCl (Dicyclomine Hcl 10 Mg Capsule) 10 mg PO TIDAC [facility] Last Admin: 04/12/22 08:10 Dose: 10 mg Documented By: BEST Docusate Sodium (Docusate Sodium 100 Mg Capsule) 100 mg PO DAILY PRN PRN Reason: Constipation Last Admin: 04/11/22 10:04 Dose: 100 mg Documented By: LENI Enoxaparin Sodium (Enoxaparin Sodium 40 Mg/0.4 Ml Syringe) 40 mg SUBCUT DAILY@0600 [facility] Last Admin: 04/12/22 05:45 Dose: 40 mg Documented By: JOSELITO Fluticasone Propionate (Fluticasone Propionate Nasal 16 Gm [place]) 2 spray NOSTRIL-B DAILY [facility] Last Admin: 04/12/22 08:14 Dose: 2 spray Documented By: BEST Guaifenesin (Guaifenesin 100 Mg/5 Ml Liquid) 5 ml PO Q6H PRN PRN Reason: Cough Last Admin: 04/11/22 11:11 Dose: 5 ml Documented By: LENI Melatonin (Melatonin 3 Mg Tablet) 6 mg PO BEDTIME PRN PRN Reason: Sleep Last Admin: 04/11/22 21:20 Dose: 6 mg Documented By: JOSELITO Melatonin (Melatonin 3 Mg Tablet) 6 mg PO BEDTIME PRN PRN Reason: Insomnia Methylprednisolone Sodium Succinate (Methylprednisolone Sod Succ 40 Mg/Ml Vial) 60 mg IVPUSH Q8H [facility] Last Admin: 04/12/22 08:11 Dose: 60 mg Documented By: BEST Multivitamins/Vitamin C (Multivitamin Tablet) 1 tab PO DAILY [facility] Last Admin: 04/12/22 08:09 Dose: 1 tab Documented By: BEST Pt Own (Fluticasone- Umeclidin-Vilanter [ Trelegy Ellipta] 100 -62.5-25 Mcg 1 puff INHALE RDAILY [facility] Last Admin: 04/12/22 08:14 Dose: 1 puff Documented By: BEST Omeprazole (Omeprazole 40 Mg Capsule.Dr) 40 mg PO BID@0630,1630 [facility] Last Admin: 04/12/22 05:45 Dose: 40 mg Documented By: JOSELITO Ondansetron HCl (Ondansetron Hcl 4 Mg/2 Ml Vial) 4 mg IVPUSH Q8H PRN PRN Reason: Nausea and Vomiting Last Admin: 04/09/22 13:04 Dose: 4 mg Documented By: DUNIAORRMelina Oxycodone HCl (Oxycodone Hcl Immed Release 5 Mg Tablet) 5 mg PO Q4H PRN PRN Reason: Pain, Severe (Pain Scale 7-10) Last Admin: 04/12/22 02:57 Dose: 5 mg Documented By: JOSELITO Pharmacy Consult (Consult Rx Perform Med Rec) 1 each MISCELLANE ONCE PRN PRN Reason: Consult order Pregabalin (Pregabalin 75 Mg Capsule) 75 mg PO BID [facility] Last Admin: 04/12/22 08:10 Dose: 75 mg Documented By: BEST Sodium Chloride (0.9 % Sodium Chloride Flush 3 Ml Syringe) 3 ml IVFLUSH QSHIFT [facility] Last Admin: 04/12/22 08:12 Dose: 3 ml Documented By: BEST Labs 04/12/22 05:47 04/12/22 05:47 Labs: Laboratory Results - last 24 hr 04/10/22 04/11/22 04/11/22 05:37 15:37 19:16 MCV MCH MCHC RDW Plt Count MPV Absolute Nucleated RBC Nucleated RBC % (auto) Anion Gap Estim Creat Clear Calc Estimated GFR Random Glucose Fasting Glucose Calcium Troponin I High Sens 3.8 4.0 IgE 15 04/11/22 04/12/22 04/12/22 19:16 05:47 05:47 MCV 95.5 MCH 32.3 MCHC 33.8 RDW 14.2 Plt Count 180 MPV 9.9 Absolute Nucleated RBC 0.000 Nucleated RBC % (auto) 0.0 Anion Gap 14 14 Estim Creat Clear Calc 44.5 60.5 Estimated GFR 54 > 60 Random Glucose 180 H Fasting Glucose 123 H Calcium 9.1 9.0 Troponin I High Sens IgE Assessment and Plan (1) CAD (coronary artery disease): Status: Acute Plan 76-year-old female with past medical history of COPD, CHF presents to the hospital with complaints of abdominal pain found to be hypoxic acute hypoxic respiratory failure due to copd with acute decopmensation and acute on chronic diastolic chf wean o2 as tolerated pulm appreciated solumedrol, azithro, continue nebs diuresed well, now holding lasix, eventually will restart maintenance hyponatermia monitor, mild hyperkalemia lokelma - improved to 5.2, monitor abdominal pain gi appreciated, IBS vs pud dced creon, started bentyl, outpatient EGD, continue ppi hypertension atenolol holding amlodipine for low normal bp CAD asa, statin plan for cath when resp status improved dvt prophylaxis - lovenox full code reason for continued hospitalization:hypoxia Time Spent With Patient Time: Total time managing care of this patient today ____ minutes. Quality Stroke Does the patient have a stroke diagnosis?: No VTE Prior VTE?: No VTE Risk Level:: Medical - moderate - high VTE Device Contraindication: Treatment Not Indicated VTE Drug Contraindication: N/A - Med Ordered
[2022-04-12] MEDS: Acetaminophen 325 MG TABLET 650 MG PO (16:07)
[2022-04-12] MEDS: guaiFENesin 100 MG/5 ML LIQUID PO (20:08)
[2022-04-12] MEDS: Melatonin 3 MG TABLET 6 MG PO (22:34)
[2022-04-12] MEDS: diazePAM 2 MG TABLET 1 MG PO (22:36)
[2022-04-13] VITALS (9 sets, daily range): BP systolic 115–167; BP diastolic 56–83; PULSE 60–158; RESP 16–19; TEMP 36.1–37.4; O2SAT 93–99
[2022-04-13] MEDS: methylPREDNISolone Sod Succ 40 MG/ML VIAL 60 MG IVPUSH ×2 (00:38→07:42)
[2022-04-13] MEDS: guaiFENesin 100 MG/5 ML LIQUID PO (04:03)
[2022-04-13] MEDS: oxyCODONE HCl Immed Release 5 MG TABLET PO ×2 (05:08→17:53)
[2022-04-13] MEDS: Omeprazole 40 MG CAPSULE.DR PO ×2 (05:08→17:53)
[2022-04-13] MEDS: Enoxaparin Sodium 40 MG/0.4 ML SYRINGE SUBCUT (05:09)
[2022-04-13 06:21] LABS: Hematocrit 39.1 % (37.0-47.0); Hemoglobin 13.2 g/dl (12.0-16.0); Mean Corpuscular HGB Conc 33.8 g/dl (31.0-35.0); Mean Corpuscular Hemoglobin 32.1 pg (27.0-33.0); Mean Corpuscular Volume 95.1 fL (80.0-98.0); Mean Platelet Volume 9.7 fL (9.4-12.3); Platelet Count 171 X10*3/uL (160-400); Red Blood Count 4.11 X10*6/uL (4.20-5.50); Red Cell Distribution Width 14.4 % (11.0-16.0); White Blood Count 7.1 X10*3/uL (4.8-10.8)
[2022-04-13 06:47] LABS: Anion Gap 14 (12-20); Blood Urea Nitrogen 23 mg/dL (9-16); Calcium 9.1 mg/dL (8.4-10.2); Carbon Dioxide 26 mmol/L (22-29); Chloride 97 mmol/L (96-108); Creatinine Clr Calc Pharmacy 58.9; Estimated Glomerular Filt Rate > 60; Glucose Fasting 131 mg/dL (60-99); Potassium 5.6 mmol/L (3.3-5.1); Sodium 131 mmol/L (135-145)
[2022-04-13] MEDS: Sodium Zirconium Cyclosilicate 10 GM POWD.PACK PO (07:40)
[2022-04-13] MEDS: atenoloL 50 MG TABLET PO (07:41)
[2022-04-13] MEDS: Aspirin Enteric Coated 81 MG TABLET.DR PO (07:41)
[2022-04-13] MEDS: Atorvastatin Calcium 40 MG TABLET PO (07:42)
[2022-04-13] MEDS: Multivitamin TABLET 1 TAB PO (07:42)
[2022-04-13] MEDS: Pregabalin 75 MG CAPSULE PO ×2 (07:42→19:46)
[2022-04-13] MEDS: Dicyclomine HCl 10 MG CAPSULE PO ×3 (07:42→17:52)
[2022-04-13] MEDS: 0.9 % Sodium Chloride Flush 3 ML SYRINGE IVFLUSH ×2 (07:42→17:53)
[2022-04-13] MEDS: Azithromycin 500 MG TABLET PO (07:42)
[2022-04-13] MEDS: Celecoxib 200 MG CAPSULE PO (07:42)
[2022-04-13] MEDS: Fluticasone Propionate Nasal 16 GM SPRAY 2 SPRAY NOSTRIL-B (07:44)
--- NOTE | 2022-04-13 09:06 | P.PNIM_ITS ---
Subjective Subjective Date of Service: 04/13/22 Interval History: cc: abd pain interval history:still with pain, sob improving Physical Exam Vital Signs: Vital Signs: Last Vital Signs Temp 97.7 F 04/13/22 08:00 Pulse 60 04/13/22 08:00 Resp 17 04/13/22 08:00 BP 147/73 H 04/13/22 08:00 Pulse Ox 95 04/13/22 08:00 O2 Del Method 04/13/22 08:00 O2 Flow Rate 2 04/13/22 04:00 BMI result Body Mass Index 25.4 General: AO X 3, no acute distress Resp: wheezing bilateral but improved, no accessory muscles used CVS: S1,S2,RRR GI: soft, non tender, non distended Neuro: motor grossly intact, alert Psych: appropriate affect, appropriate insight Objective Data Active Medications Acetaminophen (Acetaminophen 325 Mg Tablet) 650 mg PO Q6H PRN PRN Reason: Pain, Mild (Pain Scale 1-3) Last Admin: 04/12/22 16:07 Dose: 650 mg Documented By: BEST Albuterol Sulfate (Albuterol Sulfate (0.083%) 2.5 Mg/3 Ml Vial.Neb) 2.5 mg INHALE Q4H PRN PRN Reason: wheezing Last Admin: 04/11/22 21:39 Dose: 2.5 mg Documented By: HOME Aspirin (Aspirin Enteric Coated 81 Mg Tablet.) 81 mg PO DAILY [facility] Last Admin: 04/13/22 07:41 Dose: 81 mg Documented By: BEST Atenolol (Atenolol 50 Mg Tablet) 50 mg PO DAILY [facility]; Protocol Last Admin: 04/13/22 07:41 Dose: 50 mg Documented By: BEST Atorvastatin Calcium (Atorvastatin Calcium 40 Mg Tablet) 40 mg PO DAILY [facility] Last Admin: 04/13/22 07:42 Dose: 40 mg Documented By: BEST Azithromycin (Azithromycin 500 Mg Tablet) 500 mg PO Q24H [facility] Last Admin: 04/13/22 07:42 Dose: 500 mg Documented By: BEST Celecoxib (Celecoxib 200 Mg Capsule) 200 mg PO DAILY [facility] Last Admin: 04/13/22 07:42 Dose: 200 mg Documented By: BEST Albuterol Sulfate 2.5 mg/ (Ipratropium [place] 0.5 mg) 0 mg INHALE RQ6H WHILE AWAKE [facility] Last Admin: 04/13/22 08:18 Dose: 1 each Documented By: DOMINICK Diazepam (Diazepam 2 Mg Tablet) 1 mg PO BEDTIME PRN PRN Reason: restless legs Last Admin: 04/12/22 22:36 Dose: 1 mg Documented By: BRANDYN Dicyclomine HCl (Dicyclomine Hcl 10 Mg Capsule) 10 mg PO TIDAC [facility] Last Admin: 04/13/22 07:42 Dose: 10 mg Documented By: BEST Docusate Sodium (Docusate Sodium 100 Mg Capsule) 100 mg PO DAILY PRN PRN Reason: Constipation Last Admin: 04/11/22 10:04 Dose: 100 mg Documented By: LENI Enoxaparin Sodium (Enoxaparin Sodium 40 Mg/0.4 Ml Syringe) 40 mg SUBCUT DAILY@0600 [facility] Last Admin: 04/13/22 05:09 Dose: 40 mg Documented By: BRANDYN Fluticasone Propionate (Fluticasone Propionate Nasal 16 Gm [place]) 2 spray NOSTRIL-B DAILY [facility] Last Admin: 04/13/22 07:44 Dose: 2 spray Documented By: BEST Guaifenesin (Guaifenesin 100 Mg/5 Ml Liquid) 5 ml PO Q6H PRN PRN Reason: Cough Last Admin: 04/13/22 04:03 Dose: 5 ml Documented By: BRANDYN Melatonin (Melatonin 3 Mg Tablet) 6 mg PO BEDTIME PRN PRN Reason: Sleep Last Admin: 04/12/22 22:34 Dose: 6 mg Documented By: BRANDYN Melatonin (Melatonin 3 Mg Tablet) 6 mg PO BEDTIME PRN PRN Reason: Insomnia Methylprednisolone Sodium Succinate (Methylprednisolone Sod Succ 40 Mg/Ml Vial) 60 mg IVPUSH Q8H [facility] Last Admin: 04/13/22 07:42 Dose: 60 mg Documented By: BEST Multivitamins/Vitamin C (Multivitamin Tablet) 1 tab PO DAILY [facility] Last Admin: 04/13/22 07:42 Dose: 1 tab Documented By: BEST Pt Own (Fluticasone- Umeclidin-Vilanter [ Trelegy Ellipta] 100 -62.5-25 Mcg 1 puff INHALE RDAILY [facility] Last Admin: 04/13/22 07:43 Dose: 1 puff Documented By: BEST Omeprazole (Omeprazole 40 Mg [place].) 40 mg PO BID@0630,1630 [facility] Last Admin: 04/13/22 05:08 Dose: 40 mg Documented By: BRANDYN Ondansetron HCl (Ondansetron Hcl 4 Mg/2 Ml Vial) 4 mg IVPUSH Q8H PRN PRN Reason: Nausea and Vomiting Last Admin: 04/09/22 13:04 Dose: 4 mg Documented By: LISA Pharmacy Consult (Consult Rx Perform Med Rec) 1 each MISCELLANE ONCE PRN PRN Reason: Consult order Pregabalin (Pregabalin 75 Mg Capsule) 75 mg PO BID [facility] Last Admin: 04/13/22 07:42 Dose: 75 mg Documented By: BEST Sodium Chloride (0.9 % Sodium Chloride Flush 3 Ml Syringe) 3 ml IVFLUSH QSHIFT [facility] Last Admin: 04/13/22 07:42 Dose: 3 ml Documented By: BEST Labs 04/13/22 05:55 04/13/22 05:55 Labs: Laboratory Results - last 24 hr 04/13/22 04/13/22 05:55 05:55 MCV 95.1 MCH 32.1 MCHC 33.8 RDW 14.4 Plt Count 171 MPV 9.7 Absolute Nucleated RBC 0.000 Nucleated RBC % (auto) 0.0 Anion Gap 14 Estim Creat Clear Calc 58.9 Estimated GFR > 60 Fasting Glucose 131 H Calcium 9.1 Assessment and Plan (1) CAD (coronary artery disease): Status: Acute Plan 76-year-old female with past medical history of COPD, CHF presents to the hospital with complaints of abdominal pain found to be hypoxic acute hypoxic respiratory failure due to copd with acute decopmensation and acute on chronic diastolic chf wean o2 as tolerated pulm appreciated solumedrol, azithro, continue nebs diuresed well, will restart maintenance hyponatermia monitor, mild hyperkalemia lokelma monitor abdominal pain gi appreciated, IBS vs pud dced creon, started bentyl, outpatient EGD, continue ppi hypertension atenolol holding amlodipine for low normal bp CAD asa, statin plan for cath when resp status improved dvt prophylaxis - lovenox full code reason for continued hospitalization:hypoxia Time Spent With Patient Time: Total time managing care of this patient today ____ minutes. Quality Stroke Does the patient have a stroke diagnosis?: No VTE Prior VTE?: No VTE Risk Level:: Medical - moderate - high VTE Device Contraindication: Treatment Not Indicated VTE Drug Contraindication: N/A - Med Ordered
[2022-04-13] MEDS: Acetaminophen 325 MG TABLET 650 MG PO (10:06)
[2022-04-13] MEDS: Furosemide 20 MG TABLET PO (10:07)
--- NOTE | 2022-04-13 10:58 | P.PNCA_ITS ---
Subjective Subjective Date of Service: 04/13/22 Interval history: Still short of breath but improved from before. Review of Systems Review of Systems Yes all other systems are reviewed and are negative Constitutional: Reports as per HPI Eyes: Reports as per HPI Reports as per HPI Cardiovascular: Reports as per HPI, Denies acrocyanosis, Denies cool extr emities, Denies chest pain, Denies leg edema, Denies lightheadedness, Denies palpitations and Reports dyspnea Respiratory: Reports as per HPI, Reports no additional respiratory complaints and Reports dyspnea Gastrointestinal: Reports as per HPI and Reports no additional gastrointestinal complaints Genitourinary: Reports as per HPI Musculoskeletal: Reports no additional musculoskeletal complaints and Reports as per HPI Skin/Breast: Reports system reviewed and no additional complaints, except as docu Reports system reviewed and no additional complaints, except as documented and Reports as per HPI Psychiatric: Reports no additional psychiatric complaints and Reports as per HPI Endocrine: Reports no additional endocrine complaints, Reports as per HPI and Denies palpitations Hematologic/Lymphatic: Reports no additional hematologic/lymphatic complaints and Reports as per HPI Allergic/Immunologic: Reports no additional allergic/immunologic complaints and Reports as per HPI Physical Exam Vital Signs: Last Vital Signs Temp 97.7 F 04/13/22 08:00 Pulse 60 04/13/22 08:00 Resp 17 04/13/22 08:00 BP 147/73 H 04/13/22 08:00 Pulse Ox 95 04/13/22 08:00 O2 Del Method 04/13/22 08:00 O2 Flow Rate 2 04/13/22 04:00 BMI result Body Mass Index 25.4 Const General: comfortable and no acute distress Orientation/consciousness: patient oriented x3 HEENT Other: Unremarkable Head: Yes normal to inspection Neck Neck: Yes normal visual inspection Chest Chest palpation & inspection: normal inspection of the chest Resp Auscultation: rhonchi, wheezes and diminished lung sounds Cardio Palpation: normal PMI Heart sounds: S1 normal heart sound present, S2 normal heart sound present, no gallops, no murmurs and no rubs GI Palpation (GI): Soft to palpation Back/Spine/Pelvis Other: unremarkable Skin General skin exam: no rashes or lesions noted Neuro General: patient oriented x3 Extrem Other: Trace edema General: Yes normal to inspection Psych Mental Status: mental status grossly normal Objective Labs and Meds 04/13/22 05:55 04/13/22 05:55 Lab results: Laboratory Results - last 24 hr 04/13/22 04/13/22 05:55 05:55 WBC 7.1 RBC 4.11 L Hgb 13.2 Hct 39.1 MCV 95.1 MCH 32.1 MCHC 33.8 RDW 14.4 Plt Count 171 MPV 9.7 Absolute Nucleated RBC 0.000 Nucleated RBC % (auto) 0.0 Sodium 131 L Potassium 5.6 H Chloride 97 Carbon Dioxide 26 Anion Gap 14 BUN 23 H Creatinine 0.76 Estim Creat Clear Calc 58.9 Estimated GFR > 60 Fasting Glucose 131 H Calcium 9.1 Progress Note: A&P Assessment and plan (1) Acute respiratory failure with hypoxia: Status: Acute (2) CAD (coronary artery disease): Status: Acute Plan Cardiac data- High sensitivity troponins are unremarkable. Cardiac BNP is elevated to 206. CT chest reported to have triple-vessel coronary calcifications. No reflux of contrast into hepatic veins suggest elevated right heart pressures. Moderate to severe emphysema. Echocardiogram with preserved LVEF at 64%. Basal inferior akinesis and basal inferolateral hypokinesis. Mild aortic valve calcification with mild pulmonary hypertension. Overall, she is getting better from COPD but not yet fully optimal. When ready from respiratory standpoint, recommend diagnostic cardiac catheterization. Patient agreeable with above plan. Discussed with Dr. Salazar. Time Spent With Patient Time: Total time managing care of this patient today 35 minutes. Progress Note: Quality Stroke Does the patient have a stroke diagnosis?: No Procedures Date of Service Date of Service: 04/13/22
[2022-04-13] MEDS: diazePAM 2 MG TABLET 1 MG PO (22:36)
[2022-04-13] MEDS: Melatonin 3 MG TABLET 6 MG PO (22:37)
[2022-04-14] VITALS (10 sets, daily range): BP systolic 121–144; BP diastolic 60–78; PULSE 61–89; RESP 16–20; TEMP 36.6–37; O2SAT 95–100; BMI 26.2
[2022-04-14] MEDS: methylPREDNISolone Sod Succ 40 MG/ML VIAL 60 MG IVPUSH (00:32)
[2022-04-14] MEDS: 0.9 % Sodium Chloride Flush 3 ML SYRINGE IVFLUSH ×4 (00:32→20:11)
[2022-04-14 06:21] LABS: Hematocrit 39.5 % (37.0-47.0); Hemoglobin 13.3 g/dl (12.0-16.0); Mean Corpuscular HGB Conc 33.7 g/dl (31.0-35.0); Mean Corpuscular Hemoglobin 31.8 pg (27.0-33.0); Mean Corpuscular Volume 94.5 fL (80.0-98.0); Mean Platelet Volume 9.8 fL (9.4-12.3); Platelet Count 171 X10*3/uL (160-400); Red Blood Count 4.18 X10*6/uL (4.20-5.50); Red Cell Distribution Width 14.2 % (11.0-16.0)
[2022-04-14] MEDS: Enoxaparin Sodium 40 MG/0.4 ML SYRINGE SUBCUT (06:25)
[2022-04-14] MEDS: Omeprazole 40 MG CAPSULE.DR PO ×2 (06:25→16:18)
[2022-04-14 06:56] LABS: Anion Gap 11 (12-20); Blood Urea Nitrogen 27 mg/dL (9-16); Calcium 8.6 mg/dL (8.4-10.2); Carbon Dioxide 26 mmol/L (22-29); Chloride 98 mmol/L (96-108); Creatinine Clr Calc Pharmacy 60.5; Estimated Glomerular Filt Rate > 60; Glucose Fasting 115 mg/dL (60-99); Sodium 130 mmol/L (135-145)
[2022-04-14] MEDS: Azithromycin 500 MG TABLET PO (09:28)
[2022-04-14] MEDS: Pregabalin 75 MG CAPSULE PO ×2 (09:28→20:11)
[2022-04-14] MEDS: Aspirin Enteric Coated 81 MG TABLET.DR PO (09:28)
[2022-04-14] MEDS: Furosemide 20 MG TABLET PO (09:28)
[2022-04-14] MEDS: Multivitamin TABLET 1 TAB PO (09:28)
[2022-04-14] MEDS: Atorvastatin Calcium 40 MG TABLET PO (09:28)
[2022-04-14] MEDS: Dicyclomine HCl 10 MG CAPSULE PO ×3 (09:29→16:18)
[2022-04-14] MEDS: atenoloL 50 MG TABLET PO (09:29)
[2022-04-14] MEDS: Fluticasone Propionate Nasal 16 GM SPRAY 2 SPRAY NOSTRIL-B (09:29)
[2022-04-14] MEDS: predniSONE 20 MG TABLET 40 MG PO (09:55)
[2022-04-14] MEDS: guaiFENesin 100 MG/5 ML LIQUID PO ×2 (09:56→16:18)
[2022-04-14] MEDS: oxyCODONE HCl Immed Release 5 MG TABLET PO ×3 (09:56→20:11)
--- NOTE | 2022-04-14 10:54 | HO.PM.IMPN ---
Subjective Subjective Date of Service: 04/14/22 Interval History: cc: abd pain interval history:still with pain, sob improving Physical Exam Vital Signs: Vital Signs: Last Vital Signs Temp 97.9 F 04/14/22 08:00 Pulse 70 04/14/22 08:00 Resp 20 04/14/22 08:00 BP 144/78 H 04/14/22 08:00 Pulse Ox 97 04/14/22 08:00 O2 Del Method 04/14/22 08:00 O2 Flow Rate 1 04/14/22 08:00 BMI result Body Mass Index 26.2 Const: General: comfortable and no acute distress Orientation/consciousness: patient oriented x3 HEENT: Other: Unremarkable Head: Yes normal to inspection Neck: Neck: Yes normal visual inspection Chest: Chest palpation & inspection: normal inspection of the chest Resp: Auscultation: rhonchi, wheezes and diminished lung sounds Cardio: Palpation: normal PMI Heart sounds: S1 normal heart sound present, S2 normal heart sound present, no gallops, no murmurs and no rubs GI: Palpation (GI): Soft to palpation Back/Spine/Pelvis: Other: unremarkable Skin: General skin exam: no rashes or lesions noted Neuro: General: patient oriented x3 Extrem: Other: Trace edema General: Yes normal to inspection Psych: Mental Status: mental status grossly normal Objective Data Active Medications Acetaminophen (Acetaminophen 325 Mg Tablet) 650 mg PO Q6H PRN PRN Reason: Pain, Mild (Pain Scale 1-3) Last Admin: 04/13/22 10:06 Dose: 650 mg Documented By: BEST Albuterol Sulfate (Albuterol Sulfate (0.083%) 2.5 Mg/3 Ml Vial.Neb) 2.5 mg INHALE Q4H PRN PRN Reason: wheezing Last Admin: 04/11/22 21:39 Dose: 2.5 mg Documented By: HOME Aspirin (Aspirin Enteric Coated 81 Mg Tablet.) 81 mg PO DAILY [facility] Last Admin: 04/14/22 09:28 Dose: 81 mg Documented By: SAVAGE Atenolol (Atenolol 50 Mg Tablet) 50 mg PO DAILY [facility]; Protocol Last Admin: 04/14/22 09:29 Dose: 50 mg Documented By: SAVAGE Atorvastatin Calcium (Atorvastatin Calcium 40 Mg Tablet) 40 mg PO DAILY [facility] Last Admin: 04/14/22 09:28 Dose: 40 mg Documented By: SAVAGE Azithromycin (Azithromycin 500 Mg Tablet) 500 mg PO Q24H [facility] Last Admin: 04/14/22 09:28 Dose: 500 mg Documented By: SAVAGE Albuterol Sulfate 2.5 mg/ (Ipratropium [place] 0.5 mg) 0 mg INHALE RQ6H WHILE AWAKE [facility] Last Admin: 04/14/22 07:43 Dose: 1 each Documented By: OZZIE Diazepam (Diazepam 2 Mg Tablet) 1 mg PO BEDTIME PRN PRN Reason: Restlessness Last Admin: 04/13/22 22:36 Dose: 1 mg Documented By: OREN Dicyclomine HCl (Dicyclomine Hcl 10 Mg Capsule) 10 mg PO TIDAC [facility] Last Admin: 04/14/22 09:29 Dose: 10 mg Documented By: SAVAGE Docusate Sodium (Docusate Sodium 100 Mg Capsule) 100 mg PO DAILY PRN PRN Reason: Constipation Last Admin: 04/11/22 10:04 Dose: 100 mg Documented By: LENI Enoxaparin Sodium (Enoxaparin Sodium 40 Mg/0.4 Ml Syringe) 40 mg SUBCUT DAILY@0600 [facility] Last Admin: 04/14/22 06:25 Dose: 40 mg Documented By: OREN Fluticasone Propionate (Fluticasone Propionate Nasal 16 Gm [place]) 2 spray NOSTRIL-B DAILY [facility] Last Admin: 04/14/22 09:29 Dose: 2 spray Documented By: SAVAGE Furosemide (Furosemide 20 Mg Tablet) 20 mg PO DAILY [facility]; Protocol Last Admin: 04/14/22 09:28 Dose: 20 mg Documented By: SAVAGE Guaifenesin (Guaifenesin 100 Mg/5 Ml Liquid) 5 ml PO Q6H PRN PRN Reason: Cough Last Admin: 04/14/22 09:56 Dose: 5 ml Documented By: SAVAGE Melatonin (Melatonin 3 Mg Tablet) 6 mg PO BEDTIME PRN PRN Reason: Sleep Last Admin: 04/13/22 22:37 Dose: 6 mg Documented By: OREN Melatonin (Melatonin 3 Mg Tablet) 6 mg PO BEDTIME PRN PRN Reason: Insomnia Multivitamins/Vitamin C (Multivitamin Tablet) 1 tab PO DAILY [facility] Last Admin: 04/14/22 09:28 Dose: 1 tab Documented By: SAVAGE Pt Own (Fluticasone- Umeclidin-Vilanter [ Trelegy Ellipta] 100 -62.5-25 Mcg 1 puff INHALE RDAILY [facility] Last Admin: 04/14/22 09:29 Dose: 1 puff Documented By: SAVAGE Omeprazole (Omeprazole 40 Mg Capsule.Dr) 40 mg PO BID@0630,1630 [facility] Last Admin: 04/14/22 06:25 Dose: 40 mg Documented By: OREN Ondansetron HCl (Ondansetron Hcl 4 Mg/2 Ml Vial) 4 mg IVPUSH Q8H PRN PRN Reason: Nausea and Vomiting Last Admin: 04/09/22 13:04 Dose: 4 mg Documented By: DUNIAORRMelina Oxycodone HCl (Oxycodone Hcl Immed Release 5 Mg Tablet) 5 mg PO Q4H PRN PRN Reason: Pain, Severe (Pain Scale 7-10) Last Admin: 04/14/22 09:56 Dose: 5 mg Documented By: SAVAGE Pharmacy Consult (Consult Rx Perform Med Rec) 1 each MISCELLANE ONCE PRN PRN Reason: Consult order Prednisone (Prednisone 20 Mg Tablet) 40 mg PO DAILY [facility] Last Admin: 04/14/22 09:55 Dose: 40 mg Documented By: SAVAGE Pregabalin (Pregabalin 75 Mg Capsule) 75 mg PO BID [facility] Last Admin: 04/14/22 09:28 Dose: 75 mg Documented By: SAVAGE Sodium Chloride (0.9 % Sodium Chloride Flush 3 Ml Syringe) [facility] Last Admin: 04/14/22 09:29 Dose: 3 ml Documented By: SAVAGE Labs 04/14/22 05:40 04/14/22 05:40 Labs: Laboratory Results - last 24 hr 04/14/22 04/14/22 05:40 05:40 MCV 94.5 MCH 31.8 MCHC 33.7 RDW 14.2 Plt Count 171 MPV 9.8 Absolute Nucleated RBC 0.000 Nucleated RBC % (auto) 0.0 Anion Gap 11 L Estim Creat Clear Calc 60.5 Estimated GFR > 60 Fasting Glucose 115 H Calcium 8.6 Assessment and Plan (1) CAD (coronary artery disease): Status: Acute Plan 76-year-old female with past medical history of COPD, CHF presents to the hospital with complaints of abdominal pain found to be hypoxic acute hypoxic respiratory failure due to copd with acute decopmensation and acute on chronic diastolic chf wean o2 as tolerated pulm appreciated will change solumedrol to prednisone, continue azithro, continue nebs diuresed well, restarted maintenance hyponatermia monitor, mild hyperkalemia improved, monitor abdominal pain gi appreciated, IBS vs pud dced creon, started bentyl, outpatient EGD, continue ppi hypertension atenolol holding amlodipine for low normal bp CAD asa, statin plan for cath when resp status improved dvt prophylaxis - lovenox full code reason for continued hospitalization:hypoxia Time Spent With Patient Time: Total time managing care of this patient today ____ minutes. Quality Stroke Does the patient have a stroke diagnosis?: No VTE Prior VTE?: No VTE Risk Level:: Medical - moderate - high VTE Device Contraindication: Treatment Not Indicated VTE Drug Contraindication: N/A - Med Ordered
--- NOTE | 2022-04-14 11:16 | PM.PNCARD ---
Subjective Subjective Date of Service: 04/14/22 Interval history: Seen and examined at bedside. c/o abdominal distention as the day progresses. Also had some jaw discomfort today. still wheezy on exam. Physical Exam Vital Signs: Last Vital Signs Temp 97.9 F 04/14/22 08:00 Pulse 70 04/14/22 08:00 Resp 20 04/14/22 08:00 BP 144/78 H 04/14/22 08:00 Pulse Ox 97 04/14/22 08:00 O2 Del Method 04/14/22 08:00 O2 Flow Rate 1 04/14/22 08:00 BMI result Body Mass Index 26.2 GENERAL APPEARANCE: in no acute distress, pleasant. NECK: no carotid bruit, + jugular venous distention. SKIN: no suspicious lesions, warm and dry. HEART: no murmurs, regular rate and rhythm. LUNGS:b/l wheezes. ABDOMEN: soft, nontender. EXTREMITIES: mild edema. PERIPHERAL PULSES: equal. NEUROLOGIC: No gross deficits, AAO X 3 Objective Labs and Meds 04/14/22 05:40 04/14/22 05:40 Lab results: Laboratory Results - last 24 hr 04/14/22 04/14/22 05:40 05:40 WBC 8.0 RBC 4.18 L Hgb 13.3 Hct 39.5 MCV 94.5 MCH 31.8 MCHC 33.7 RDW 14.2 Plt Count 171 MPV 9.8 Absolute Nucleated RBC 0.000 Nucleated RBC % (auto) 0.0 Sodium 130 L Potassium 5.0 Chloride 98 Carbon Dioxide 26 Anion Gap 11 L BUN 27 H Creatinine 0.75 Estim Creat Clear Calc 60.5 Estimated GFR > 60 Fasting Glucose 115 H Calcium 8.6 Progress Note: A&P Assessment and plan (1) COPD exacerbation: Status: Acute (2) CAD (coronary artery disease): Status: Acute (3) Acute CHF: Status: Acute Plan 76 female with COPD and known CAD with angioplasty when she was 37 years old. She has RWMA on echo and abdominal discomfort. She had indigestion when she presented with ACS at age 37 years. Still wheezy. c/w steroids and nebs. Repeat BNP today. As lungs improve will consider transfer for cath. Time Spent With Patient Time: Total time managing care of this patient today ____ minutes. Progress Note: Quality Stroke Does the patient have a stroke diagnosis?: No Procedures Date of Service Date of Service: 04/14/22
[2022-04-14] MEDS: Acetaminophen 325 MG TABLET 650 MG PO (13:00)
--- NOTE | 2022-04-14 14:30 | MHC.CM.PN ---
per rounds pt will transferred to [facility]
[2022-04-14 14:39] LABS: Anti Nuclear Antibody Screen NEGATIVE (NEGATIVE)
[2022-04-14] MEDS: Melatonin 3 MG TABLET 6 MG PO (22:46)
[2022-04-14] MEDS: diazePAM 2 MG TABLET 1 MG PO (22:46)
[2022-04-15] VITALS (8 sets, daily range): BP systolic 131–170; BP diastolic 65–84; PULSE 58–85; RESP 16–20; TEMP 36.1–37; O2SAT 90–98; BMI 26.9
[2022-04-15] MEDS: oxyCODONE HCl Immed Release 5 MG TABLET PO ×4 (03:06→20:56)
[2022-04-15] MEDS: Enoxaparin Sodium 40 MG/0.4 ML SYRINGE SUBCUT (05:32)
[2022-04-15] MEDS: Omeprazole 40 MG CAPSULE.DR PO ×2 (05:32→16:01)
[2022-04-15 06:22] LABS: Hematocrit 43.1 % (37.0-47.0); Hemoglobin 14.5 g/dl (12.0-16.0); Mean Corpuscular HGB Conc 33.6 g/dl (31.0-35.0); Mean Corpuscular Hemoglobin 31.9 pg (27.0-33.0); Mean Corpuscular Volume 94.7 fL (80.0-98.0); Mean Platelet Volume 10.1 fL (9.4-12.3); Platelet Count 199 X10*3/uL (160-400); Red Blood Count 4.55 X10*6/uL (4.20-5.50); Red Cell Distribution Width 14.3 % (11.0-16.0); White Blood Count 8.8 X10*3/uL (4.8-10.8)
[2022-04-15 06:45] LABS: B Type Natriuretic Peptide 225 pg/mL (<100)
[2022-04-15 06:47] LABS: Anion Gap 12 (12-20); Blood Urea Nitrogen 25 mg/dL (9-16); Calcium 8.9 mg/dL (8.4-10.2); Carbon Dioxide 29 mmol/L (22-29); Chloride 96 mmol/L (96-108); Creatinine Clr Calc Pharmacy 62.9; Estimated Glomerular Filt Rate > 60; Glucose Fasting 85 mg/dL (60-99); Potassium 5.3 mmol/L (3.3-5.1); Sodium 132 mmol/L (135-145)
[2022-04-15] MEDS: atenoloL 50 MG TABLET PO (08:04)
[2022-04-15] MEDS: Multivitamin TABLET 1 TAB PO (08:04)
[2022-04-15] MEDS: predniSONE 20 MG TABLET 40 MG PO (08:04)
[2022-04-15] MEDS: Pregabalin 75 MG CAPSULE PO ×2 (08:04→20:57)
[2022-04-15] MEDS: Aspirin Enteric Coated 81 MG TABLET.DR PO (08:04)
[2022-04-15] MEDS: Azithromycin 500 MG TABLET PO (08:04)
[2022-04-15] MEDS: 0.9 % Sodium Chloride Flush 3 ML SYRINGE IVFLUSH ×3 (08:05→23:34)
[2022-04-15] MEDS: Furosemide 20 MG TABLET PO (08:05)
[2022-04-15] MEDS: Atorvastatin Calcium 40 MG TABLET PO (08:05)
[2022-04-15] MEDS: Dicyclomine HCl 10 MG CAPSULE PO ×3 (08:05→16:01)
[2022-04-15] MEDS: Fluticasone Propionate Nasal 16 GM SPRAY 2 SPRAY NOSTRIL-B (08:06)
[2022-04-15 12:10] LABS: Alanine Aminotransferase 19 U/L (0-31); Albumin Level 3.4 g/dL (3.5-5.0); Alkaline Phosphatase 43 U/L (39-117); Aspartate Amino Transferase 14 U/L (5-31); Bilirubin Direct 0.2 mg/dL (0.0-0.5); Bilirubin Total 0.5 mg/dL (0.0-1.0); Total Protein 5.1 g/dL (6.5-8.0)
--- NOTE | 2022-04-15 12:35 | P.PNIM_ITS ---
Subjective Subjective Date of Service: 04/15/22 Interval History: cc: abd pain interval history:still with pain, sob improving Physical Exam Vital Signs: Vital Signs: Last Vital Signs Temp 96.9 F 04/15/22 11:02 Pulse 65 04/15/22 11:24 Resp 20 04/15/22 11:02 BP 131/65 04/15/22 11:24 Pulse Ox 94 04/15/22 11:24 O2 Del Method 04/15/22 11:02 O2 Flow Rate 1 04/15/22 07:30 BMI result Body Mass Index 26.9 GENERAL APPEARANCE: in no acute distress, pleasant. NECK: no carotid bruit, SKIN: no suspicious lesions, warm and dry. HEART: no murmurs, regular rate and rhythm. LUNGS:b/l wheezes. but improved and better air movement ABDOMEN: soft, nontender. EXTREMITIES: mild edema. PERIPHERAL PULSES: equal. NEUROLOGIC: No gross deficits, AAO X 3 Objective Data Active Medications Acetaminophen (Acetaminophen 325 Mg Tablet) 650 mg PO Q6H PRN PRN Reason: Pain, Mild (Pain Scale 1-3) Last Admin: 04/14/22 13:00 Dose: 650 mg Documented By: SAVAGE Aspirin (Aspirin Enteric Coated 81 Mg Tablet.) 81 mg PO DAILY [facility] Last Admin: 04/15/22 08:04 Dose: 81 mg Documented By: JOSE ROBERTO Atenolol (Atenolol 50 Mg Tablet) 50 mg PO DAILY [facility]; Protocol Last Admin: 04/15/22 08:04 Dose: 50 mg Documented By: JOSE ROBERTO Atorvastatin Calcium (Atorvastatin Calcium 40 Mg Tablet) 40 mg PO DAILY [facility] Last Admin: 04/15/22 08:05 Dose: 40 mg Documented By: JOSE ROBERTO Azithromycin (Azithromycin 500 Mg Tablet) 500 mg PO Q24H [facility] Last Admin: 04/15/22 08:04 Dose: 500 mg Documented By: JOSE ROBERTO Albuterol Sulfate 2.5 mg/ (Ipratropium Artesian 0.5 mg) 0 mg INHALE RQ6H WHILE AWAKE [facility] Last Admin: 04/15/22 07:23 Dose: 1 each Documented By: OZZIE Diazepam (Diazepam 2 Mg Tablet) 1 mg PO BEDTIME PRN PRN Reason: Restlessness Last Admin: 04/14/22 22:46 Dose: 1 mg Documented By: OREN Dicyclomine HCl (Dicyclomine Hcl 10 Mg Capsule) 10 mg PO TIDAC [facility] Last Admin: 04/15/22 08:05 Dose: 10 mg Documented By: JOSE ROBERTO Docusate Sodium (Docusate Sodium 100 Mg Capsule) 100 mg PO DAILY PRN PRN Reason: Constipation Last Admin: 04/11/22 10:04 Dose: 100 mg Documented By: LENI Enoxaparin Sodium (Enoxaparin Sodium 40 Mg/0.4 Ml Syringe) 40 mg SUBCUT DAILY@0600 [facility] Last Admin: 04/15/22 05:32 Dose: 40 mg Documented By: OREN Fluticasone Propionate (Fluticasone Propionate Nasal 16 Gm [place]) 2 spray NOSTRIL-B DAILY [facility] Last Admin: 04/15/22 08:06 Dose: 2 spray Documented By: JOSE ROBERTO Furosemide (Furosemide 20 Mg Tablet) 20 mg PO DAILY [facility]; Protocol Last Admin: 04/15/22 08:05 Dose: 20 mg Documented By: JOSE ROBERTO Guaifenesin (Guaifenesin 100 Mg/5 Ml Liquid) 5 ml PO Q6H PRN PRN Reason: Cough Last Admin: 04/14/22 16:18 Dose: 5 ml Documented By: SAVAGE Melatonin (Melatonin 3 Mg Tablet) 6 mg PO BEDTIME PRN PRN Reason: Sleep Last Admin: 04/14/22 22:46 Dose: 6 mg Documented By: OREN Melatonin (Melatonin 3 Mg Tablet) 6 mg PO BEDTIME PRN PRN Reason: Insomnia Multivitamins/Vitamin C (Multivitamin Tablet) 1 tab PO DAILY [facility] Last Admin: 04/15/22 08:04 Dose: 1 tab Documented By: JOSE ROBERTO Pt Own (Fluticasone- Umeclidin-Vilanter [ Trelegy Ellipta] 100 -62.5-25 Mcg 1 puff INHALE RDAILY [facility] Last Admin: 04/15/22 08:07 Dose: 1 puff Documented By: JOSE ROBERTO Omeprazole (Omeprazole 40 Mg Capsule.Dr) 40 mg PO BID@0630,1630 [facility] Last Admin: 04/15/22 05:32 Dose: 40 mg Documented By: OREN Ondansetron HCl (Ondansetron Hcl 4 Mg/2 Ml Vial) 4 mg IVPUSH Q8H PRN PRN Reason: Nausea and Vomiting Last Admin: 04/09/22 13:04 Dose: 4 mg Documented By: LISA Oxycodone HCl (Oxycodone Hcl Immed Release 5 Mg Tablet) 5 mg PO Q4H PRN PRN Reason: Pain, Severe (Pain Scale 7-10) Last Admin: 04/15/22 08:05 Dose: 5 mg Documented By: JOSE ROBERTO Pharmacy Consult (Consult Rx Perform Med Rec) 1 each MISCELLANE ONCE PRN PRN Reason: Consult order Prednisone (Prednisone 20 Mg Tablet) 40 mg PO DAILY [facility] Last Admin: 04/15/22 08:04 Dose: 40 mg Documented By: JOSE ROBERTO Pregabalin (Pregabalin 75 Mg Capsule) 75 mg PO BID [facility] Last Admin: 04/15/22 08:04 Dose: 75 mg Documented By: JOSE ROBERTO Sodium Chloride (0.9 % Sodium Chloride Flush 3 Ml Syringe) 3 ml IVFLUSH QSHIFT [facility] Last Admin: 04/15/22 08:05 Dose: 3 ml Documented By: JOSE ROBERTO Labs 04/15/22 05:24 04/15/22 05:24 Labs: Laboratory Results - last 24 hr 04/11/22 04/15/22 04/15/22 05:37 05:24 05:24 MCV 94.7 MCH 31.9 MCHC 33.6 RDW 14.3 Plt Count 199 MPV 10.1 Absolute Nucleated RBC 0.000 Nucleated RBC % (auto) 0.0 Anion Gap 12 Estim Creat Clear Calc 62.9 Estimated GFR > 60 Fasting Glucose 85 Calcium 8.9 Total Bilirubin 0.5 Direct Bilirubin 0.2 AST 14 ALT 19 Alkaline Phosphatase 43 B-Natriuretic Peptide Total Protein 5.1 L Albumin 3.4 L FAMILIA Screen NEGATIVE 04/15/22 05:24 MCV MCH MCHC RDW Plt Count MPV Absolute Nucleated RBC Nucleated RBC % (auto) Anion Gap Estim Creat Clear Calc Estimated GFR Fasting Glucose Calcium Total Bilirubin Direct Bilirubin AST ALT Alkaline Phosphatase B-Natriuretic Peptide 225 H Total Protein Albumin FAMILIA Screen Assessment and Plan (1) CAD (coronary artery disease): Status: Acute Plan 76-year-old female with past medical history of COPD, CHF presents to the hospital with complaints of abdominal pain found to be hypoxic acute hypoxic respiratory failure due to copd with acute decopmensation and acute on chronic diastolic chf wean o2 as tolerated - at rest on room air, desats on mild activity pulm appreciated now on prednisone, continue azithro, continue nebs diuresed well, restarted maintenance hyponatermia monitor, mild hyperkalemia 5.3 today lokelma 10mg follow up repat tomorrow abdominal pain gi appreciated, IBS vs pud dced creon, started bentyl, outpatient EGD, continue ppi hypertension atenolol holding amlodipine for low normal bp, now with some elevated readings, but will continue to monitor off amlodipine CAD asa, statin plan for cath when resp status improved dvt prophylaxis - lovenox full code reason for continued hospitalization:hypoxia Time Spent With Patient Time: Total time managing care of this patient today ____ minutes. Quality Stroke Does the patient have a stroke diagnosis?: No VTE Prior VTE?: No VTE Risk Level:: Medical - moderate - high VTE Device Contraindication: Treatment Not Indicated VTE Drug Contraindication: N/A - Med Ordered
[2022-04-15] MEDS: Sodium Zirconium Cyclosilicate 10 GM POWD.PACK PO (13:00)
[2022-04-15] MEDS: guaiFENesin 100 MG/5 ML LIQUID PO (13:08)
--- NOTE | 2022-04-15 13:23 | P.PNCA_ITS ---
Subjective Subjective Date of Service: 04/15/22 Interval history: Seen examined at bedside. Respiratory status is improving. Physical Exam Vital Signs: Last Vital Signs Temp 96.9 F 04/15/22 11:02 Pulse 65 04/15/22 11:24 Resp 20 04/15/22 11:02 BP 131/65 04/15/22 11:24 Pulse Ox 94 04/15/22 11:24 O2 Del Method 04/15/22 11:02 O2 Flow Rate 1 04/15/22 07:30 BMI result Body Mass Index 26.9 GENERAL APPEARANCE: in no acute distress, pleasant. NECK: no carotid bruit. SKIN: no suspicious lesions, warm and dry. HEART: no murmurs, regular rate and rhythm. LUNGS: Mild expiratory wheezes. ABDOMEN: soft, nontender. EXTREMITIES: mild edema. PERIPHERAL PULSES: equal. NEUROLOGIC: No gross deficits, AAO X 3 Objective Labs and Meds 04/15/22 05:24 04/15/22 05:24 Lab results: Laboratory Results - last 24 hr 04/11/22 04/15/22 04/15/22 05:37 05:24 05:24 WBC 8.8 RBC 4.55 Hgb 14.5 Hct 43.1 MCV 94.7 MCH 31.9 MCHC 33.6 RDW 14.3 Plt Count 199 MPV 10.1 Absolute Nucleated RBC 0.000 Nucleated RBC % (auto) 0.0 Sodium 132 L Potassium 5.3 H Chloride 96 Carbon Dioxide 29 Anion Gap 12 BUN 25 H Creatinine 0.73 Estim Creat Clear Calc 62.9 Estimated GFR > 60 Fasting Glucose 85 Calcium 8.9 Total Bilirubin 0.5 Direct Bilirubin 0.2 AST 14 ALT 19 Alkaline Phosphatase 43 B-Natriuretic Peptide Total Protein 5.1 L Albumin 3.4 L FAMILIA Screen NEGATIVE 04/15/22 05:24 WBC RBC Hgb Hct MCV MCH MCHC RDW Plt Count MPV Absolute Nucleated RBC Nucleated RBC % (auto) Sodium Potassium Chloride Carbon Dioxide Anion Gap BUN Creatinine Estim Creat Clear Calc Estimated GFR Fasting Glucose Calcium Total Bilirubin Direct Bilirubin AST ALT Alkaline Phosphatase B-Natriuretic Peptide 225 H Total Protein Albumin FAMILIA Screen Progress Note: A&P Assessment and plan (1) COPD exacerbation: Status: Acute (2) CAD (coronary artery disease): Status: Acute (3) Acute CHF: Status: Acute Plan 76-year-old female presenting for COPD exacerbation. There was also some concern for congestive heart failure she was on IV diuretics. Overall respi ratory status has been improving. She is on p.o. diuretics. She has known history of coronary disease with angioplasty performed at age 37. She has significant GI complaints and has multiple previous abdominal surgeries. Respiratory status is improving. She will need endoscopy to understand her GI complaints better. So far she is being treated with Bentyl. I have advised her to do stress test 1st. If respiratory status is better tomorrow we will do Lexiscan on her. Keep NPO after midnight. If stress test is significantly abnormal then I will transfer and do angiography. On the other hand if stress test is okay then she can proceed with her endoscopy. Thank you for allowing me to participate in the care of your patient. Please feel free to contact me if you have any questions. Time Spent With Patient Time: Total time managing care of this patient today ____ minutes. Progress Note: Quality Stroke Does the patient have a stroke diagnosis?: No Procedures Date of Service Date of Service: 04/15/22
[2022-04-15] MEDS: diazePAM 2 MG TABLET 1 MG PO (20:58)
[2022-04-15] MEDS: Melatonin 3 MG TABLET 6 MG PO (20:58)
--- NOTE | 2022-04-16 | CA_ITS ---
Acquisition Time: 2022-04-17 08:40:18 Total Exercise Time: 00:02:00 Test Indications: Dyspnea Medications: Protocol: LEXISCAN Max HR: 107 BPM 73% of Pred: 146 BPM Max BP: 122/074 mmHG Max Work Load: 1.0 METS Pharmacological stress test with Lexiscan injection, while sitting and kicking her legs, with mild sob, no chest discomfort, with isolated PVCs, at times in trigeminy pattern, with normotensive response to injection, with nondiagnostic EKG for ischemia. Nuclear images pending. Test reviewed with Dr Keith Referred By: Ravinder Keith Overread By: BETSEY UNGER
[2022-04-16 03:05] VITALS: BP 147/72; PULSE 58; RESP 16; TEMP 36.3; O2SAT 95
[2022-04-16] MEDS: Omeprazole 40 MG CAPSULE.DR PO ×2 (05:33→16:59)
[2022-04-16] MEDS: Enoxaparin Sodium 40 MG/0.4 ML SYRINGE SUBCUT (05:33)
[2022-04-16 06:00] VITALS: BMI 26.8
[2022-04-16 06:32] LABS: Hematocrit 41.3 % (37.0-47.0); Hemoglobin 13.8 g/dl (12.0-16.0); Mean Corpuscular HGB Conc 33.4 g/dl (31.0-35.0); Mean Corpuscular Hemoglobin 31.9 pg (27.0-33.0); Mean Corpuscular Volume 95.6 fL (80.0-98.0); Mean Platelet Volume 9.8 fL (9.4-12.3); Platelet Count 187 X10*3/uL (160-400); Red Blood Count 4.32 X10*6/uL (4.20-5.50); Red Cell Distribution Width 14.3 % (11.0-16.0); White Blood Count 8.1 X10*3/uL (4.8-10.8)
[2022-04-16 07:07] LABS: Blood Urea Nitrogen 19 mg/dL (9-16); Calcium 8.5 mg/dL (8.4-10.2); Creatinine Clr Calc Pharmacy 67.4; Estimated Glomerular Filt Rate > 60; Glucose Fasting 80 mg/dL (60-99)
[2022-04-16 07:14] LABS: Anion Gap 11 (12-20); Carbon Dioxide 27 mmol/L (22-29); Chloride 101 mmol/L (96-108); Potassium 4.2 mmol/L (3.3-5.1); Sodium 135 mmol/L (135-145)
[2022-04-16 07:25] VITALS: BP 155/76; PULSE 59; RESP 18; TEMP 36.1; O2SAT 97
[2022-04-16] MEDS: oxyCODONE HCl Immed Release 5 MG TABLET PO ×4 (07:48→21:20)
[2022-04-16] MEDS: Multivitamin TABLET 1 TAB PO (07:49)
[2022-04-16] MEDS: Dicyclomine HCl 10 MG CAPSULE PO ×3 (07:49→16:59)
[2022-04-16] MEDS: Pregabalin 75 MG CAPSULE PO ×2 (07:49→21:21)
[2022-04-16] MEDS: predniSONE 20 MG TABLET 40 MG PO (07:49)
[2022-04-16] MEDS: Aspirin Enteric Coated 81 MG TABLET.DR PO (07:49)
[2022-04-16] MEDS: Atorvastatin Calcium 40 MG TABLET PO (07:49)
[2022-04-16] MEDS: Furosemide 20 MG TABLET PO (07:49)
[2022-04-16] MEDS: atenoloL 50 MG TABLET PO (07:49)
[2022-04-16] MEDS: Azithromycin 500 MG TABLET PO (07:50)
[2022-04-16] MEDS: 0.9 % Sodium Chloride Flush 3 ML SYRINGE IVFLUSH ×2 (07:50→17:13)
[2022-04-16] MEDS: Fluticasone Propionate Nasal 16 GM SPRAY 2 SPRAY NOSTRIL-B (07:50)
--- NOTE | 2022-04-16 10:26 | PM.PNCARD ---
Subjective Subjective Date of Service: 04/16/22 Interval history: Seen and examined bedside. breathing is improving. We discussed about doing Lexiscan and she is agreeable. We will do rest imaging study. Physical Exam Vital Signs: Last Vital Signs Temp 97.0 F 04/16/22 07:25 Pulse 59 04/16/22 07:25 Resp 18 04/16/22 07:25 BP 155/76 H 04/16/22 07:25 Pulse Ox 97 04/16/22 07:25 O2 Del Method 04/16/22 07:25 O2 Flow Rate 1 04/16/22 07:25 BMI result Body Mass Index 26.8 GENERAL APPEARANCE: in no acute distress, pleasant. NECK: no carotid bruit. SKIN: no suspicious lesions, warm and dry. HEART: no murmurs, regular rate and rhythm. LUNGS: Mild end expiratory wheezes. ABDOMEN: soft, nontender. EXTREMITIES: mild edema. PERIPHERAL PULSES: equal. NEUROLOGIC: No gross deficits, AAO X 3 Objective Labs and Meds 04/16/22 06:11 04/16/22 06:11 Lab results: Laboratory Results - last 24 hr 04/11/22 04/15/22 04/16/22 05:37 05:24 06:11 WBC 8.1 RBC 4.32 Hgb 13.8 Hct 41.3 MCV 95.6 MCH 31.9 MCHC 33.4 RDW 14.3 Plt Count 187 MPV 9.8 Absolute Nucleated RBC 0.000 Nucleated RBC % (auto) 0.0 Sodium Potassium Chloride Carbon Dioxide Anion Gap BUN Creatinine Estim Creat Clear Calc Estimated GFR Fasting Glucose Calcium Total Bilirubin 0.5 Direct Bilirubin 0.2 AST 14 ALT 19 Alkaline Phosphatase 43 Total Protein 5.1 L Albumin 3.4 L FAMILIA Titer TNP FAMILIA Titer 2 TNP FAMILIA Titer 3 TNP FAMILIA Pattern TNP FAMILIA Pattern 2 TNP FAMILIA Pattern 3 TNP 04/16/22 06:11 WBC RBC Hgb Hct MCV MCH MCHC RDW Plt Count MPV Absolute Nucleated RBC Nucleated RBC % (auto) Sodium 135 Potassium 4.2 D Chloride 101 Carbon Dioxide 27 Anion Gap 11 L BUN 19 H Creatinine 0.68 Estim Creat Clear Calc 67.4 Estimated GFR > 60 Fasting Glucose 80 Calcium 8.5 Total Bilirubin Direct Bilirubin AST ALT Alkaline Phosphatase Total Protein Albumin FAMILIA Titer FAMILIA Titer 2 FAMILIA Titer 3 FAMILIA Pattern FAMILIA Pattern 2 FAMILIA Pattern 3 Progress Note: A&P Assessment and plan (1) COPD exacerbation: Status: Acute (2) CAD (coronary artery disease): Status: Acute (3) Acute CHF: Status: Acute Plan 76-year-old female presenting with COPD exacerbation and mild congestive heart failure. She was diuresed and is on oral diuretics currently. Respiratory distress is improving every day. We discussed about cardiac catheterization versus stress testing and we have agreed to do a Lexiscan for now. She will get rest images today. Will auscultate her tomorrow and if there is no wheezes will do stress imaging. If stress testing is reasonable and does not show any significant perfusion defect and she can return home. If stress test is high risk then I will transfer and do diagnostic angiography. She has been experiencing a lot of GI complaints and abdominal pain and bloating. She previously had abdominal surgeries. GI has seen her and plan to do outpatient endoscopy. There is concern about peptic ulcer disease and IBS. No bleeding concerns currently. Blood pressure control is reasonable currently. If BP is rising than amlodipine home dose can be started. Thank you for allowing me to participate in the care of your patient. Please feel free to contact me if you have any questions. Time Spent With Patient Time: Total time managing care of this patient today ____ minutes. Progress Note: Quality Stroke Does the patient have a stroke diagnosis?: No Procedures Date of Service Date of Service: 04/16/22
[2022-04-16 11:18] VITALS: BP 115/64; PULSE 70; RESP 16; TEMP 36.1; O2SAT 95
--- NOTE | 2022-04-16 13:37 | HO.PM.IMPN ---
Subjective Subjective Date of Service: 04/16/22 Interval History: the patient was seen and evaluated this morning Laying in bed, feels comfortable exertional shortness of breath, generalized abd pain No reported other overnight events. Review of Systems Review of Systems: Yes all other systems are reviewed and are negative Physical Exam Vital Signs: Vital Signs: Last Vital Signs Temp 97.0 F 04/16/22 11:18 Pulse 70 04/16/22 11:18 Resp 16 04/16/22 11:18 BP 115/64 04/16/22 11:18 Pulse Ox 95 04/16/22 11:18 O2 Del Method 04/16/22 11:18 O2 Flow Rate 1 04/16/22 07:25 BMI result Body Mass Index 26.8 Const: Other: Constitutional : Awake, interactive, not in distress Neck : Normal inspection, Supple Cardiovascular : RRR, no JVP, no lower extremity edema Respiratory : good bilateral air entry, no crackles, wheezes or rhonchi Gastrointestinal: soft, lax, Normal bowel sounds, Non tender Skin : Warm, Dry Neurological : Alert & oriented x3, No focal deficit , CN 2-12 within normal Objective Data Active Medications Acetaminophen (Acetaminophen 325 Mg Tablet) 650 mg PO Q6H PRN PRN Reason: Pain, Mild (Pain Scale 1-3) Last Admin: 04/14/22 13:00 Dose: 650 mg Documented By: SAVAGE Albuterol Sulfate (Albuterol Sulfate (0.083%) 2.5 Mg/3 Ml Vial.[facility]) 2.5 mg INHALE Q4H PRN PRN Reason: Shortness of Breath/Wheezing Aspirin (Aspirin Enteric Coated 81 Mg Tablet.) 81 mg PO DAILY [facility] Last Admin: 04/16/22 07:49 Dose: 81 mg Documented By: JOSE ROBERTO Atenolol (Atenolol 50 Mg Tablet) 50 mg PO DAILY [facility]; Protocol Last Admin: 04/16/22 07:49 Dose: 50 mg Documented By: JOSE ROBERTO Atorvastatin Calcium (Atorvastatin Calcium 40 Mg Tablet) 40 mg PO DAILY [facility] Last Admin: 04/16/22 07:49 Dose: 40 mg Documented By: JOSE ROBERTO Azithromycin (Azithromycin 500 Mg Tablet) 500 mg PO Q24H [facility] Last Admin: 04/16/22 07:50 Dose: 500 mg Documented By: JOSE ROBERTO Diazepam (Diazepam 2 Mg Tablet) 1 mg PO BEDTIME PRN PRN Reason: Restlessness Last Admin: 04/15/22 20:58 Dose: 1 mg Documented By: MERRY Dicyclomine HCl (Dicyclomine Hcl 10 Mg Capsule) 10 mg PO TIDAC [facility] Last Admin: 04/16/22 12:05 Dose: 10 mg Documented By: JOSE ROBERTO Docusate Sodium (Docusate Sodium 100 Mg Capsule) 100 mg PO DAILY PRN PRN Reason: Constipation Last Admin: 04/11/22 10:04 Dose: 100 mg Documented By: LENI Enoxaparin Sodium (Enoxaparin Sodium 40 Mg/0.4 Ml Syringe) 40 mg SUBCUT DAILY@0600 [facility] Last Admin: 04/16/22 05:33 Dose: 40 mg Documented By: GERDA Fluticasone Propionate (Fluticasone Propionate Nasal 16 Gm [place]) 2 spray NOSTRIL-B DAILY [facility] Last Admin: 04/16/22 07:50 Dose: 2 spray Documented By: JOSE ROBERTO Furosemide (Furosemide 20 Mg Tablet) 20 mg PO DAILY [facility]; Protocol Last Admin: 04/16/22 07:49 Dose: 20 mg Documented By: JOSE ROBERTO Guaifenesin (Guaifenesin 100 Mg/5 Ml Liquid) 5 ml PO Q6H PRN PRN Reason: Cough Last Admin: 04/15/22 13:08 Dose: 5 ml Documented By: JOSE ROBERTO Melatonin (Melatonin 3 Mg Tablet) 6 mg PO BEDTIME PRN PRN Reason: Sleep Last Admin: 04/15/22 20:58 Dose: 6 mg Documented By: MERRY Melatonin (Melatonin 3 Mg Tablet) 6 mg PO BEDTIME PRN PRN Reason: Insomnia Multivitamins/Vitamin C (Multivitamin Tablet) 1 tab PO DAILY [facility] Last Admin: 04/16/22 07:49 Dose: 1 tab Documented By: JOSE ROBERTO Pt Own (Fluticasone- Umeclidin-Vilanter [ Trelegy Ellipta] 100 -62.5-25 Mcg 1 puff INHALE RDAILY [facility] Last Admin: 04/16/22 07:50 Dose: 1 puff Documented By: JOSE ROBERTO Omeprazole (Omeprazole 40 Mg Capsule.) 40 mg PO BID@0630,1630 [facility] Last Admin: 04/16/22 05:33 Dose: 40 mg Documented By: GERDA Ondansetron HCl (Ondansetron Hcl 4 Mg/2 Ml Vial) 4 mg IVPUSH Q8H PRN PRN Reason: Nausea and Vomiting Last Admin: 04/09/22 13:04 Dose: 4 mg Documented By: DUNIAORRMelina Oxycodone HCl (Oxycodone Hcl Immed Release 5 Mg Tablet) 5 mg PO Q4H PRN PRN Reason: Pain, Severe (Pain Scale 7-10) Last Admin: 04/16/22 12:05 Dose: 5 mg Documented By: JOSE ROBERTO Pharmacy Consult (Consult Rx Perform Med Rec) 1 each MISCELLANE ONCE PRN PRN Reason: Consult order Prednisone (Prednisone 20 Mg Tablet) 40 mg PO DAILY [facility] Last Admin: 04/16/22 07:49 Dose: 40 mg Documented By: JOSE ROBERTO Pregabalin (Pregabalin 75 Mg Capsule) 75 mg PO BID [facility] Last Admin: 04/16/22 07:49 Dose: 75 mg Documented By: JOSE ROBERTO Sodium Chloride (0.9 % Sodium Chloride Flush 3 Ml Syringe) 3 ml IVFLUSH QSHIFT [facility] Last Admin: 04/16/22 07:50 Dose: 3 ml Documented By: JOSE ROBERTO Labs 04/16/22 06:11 04/16/22 06:11 Labs: Laboratory Results - last 24 hr 04/11/22 04/16/22 04/16/22 05:37 06:11 06:11 MCV 95.6 MCH 31.9 MCHC 33.4 RDW 14.3 Plt Count 187 MPV 9.8 Absolute Nucleated RBC 0.000 Nucleated RBC % (auto) 0.0 Anion Gap 11 L Estim Creat Clear Calc 67.4 Estimated GFR > 60 Fasting Glucose 80 Calcium 8.5 FAMILIA Titer TNP FAMILIA Titer 2 TNP FAMILIA Titer 3 TNP FAMILIA Pattern TNP FAMILIA Pattern 2 TNP FAMILIA Pattern 3 TNP Assessment and Plan (1) COPD exacerbation: Status: Acute (2) Acute CHF: Status: Acute (3) Acute respiratory failure with hypoxia: Status: Acute Plan 76-year-old female with past medical history of COPD, CHF presents to the hospital with complaints of abdominal pain found to be hypoxic acute hypoxic respiratory failure due to copd with acute decopmensation and acute on chronic diastolic chf weaned off O2 pulm input appreciated continue prednisone, nebs continue azithro, lasix changed from IV to PO cardio input appreciated, to do stress test: if positive Angiogram, if negative can schedule Endoscopy hyponatermia monitor, mild hyperkalemia resolved abdominal pain gi appreciated, IBS vs pud dced creon, started bentyl, plan for inpatient vs outpatient EGD, continue ppi hypertension atenolol holding amlodipine for low normal bp, now with some elevated readings, but will continue to monitor off amlodipine CAD asa, statin plan for cath when resp status improved dvt prophylaxis - lovenox full code reason for continued hospitalization: pending stress test and cardiology team planning Time Spent With Patient Time: Total time managing care of this patient today ____ minutes. Quality Stroke Does the patient have a stroke diagnosis?: No VTE Prior VTE?: No VTE Risk Level:: Medical - moderate - high VTE Device Contraindication: Treatment Not Indicated VTE Drug Contraindication: N/A - Med Ordered
[2022-04-16 15:28] VITALS: BP 125/76; PULSE 78; RESP 16; TEMP 36.5; O2SAT 97
--- NOTE | 2022-04-16 15:38 | MHC.CM.PN ---
per birgit pt not medically cleared for dc str remains the plan
[2022-04-16 19:24] VITALS: BP 102/54; PULSE 61; RESP 19; TEMP 36.6; O2SAT 95
[2022-04-16] MEDS: diazePAM 2 MG TABLET 1 MG PO (21:21)
[2022-04-16] MEDS: Melatonin 3 MG TABLET 6 MG PO (21:22)
[2022-04-16 23:03] LABS: Legionella Ag Urine Not Detected (Not Detected)
[2022-04-16 23:25] VITALS: BP 112/60; PULSE 55; RESP 15; TEMP 37.1; O2SAT 92
[2022-04-17] VITALS (7 sets, daily range): BP systolic 108–157; BP diastolic 56–98; PULSE 58–78; RESP 16–18; TEMP 36.2–37.1; O2SAT 92–98
[2022-04-17] MEDS: 0.9 % Sodium Chloride Flush 3 ML SYRINGE IVFLUSH ×3 (03:02→16:03)
[2022-04-17] MEDS: Atorvastatin Calcium 40 MG TABLET PO (10:36)
[2022-04-17] MEDS: Furosemide 20 MG TABLET PO (10:36)
[2022-04-17] MEDS: Azithromycin 500 MG TABLET PO (10:37)
[2022-04-17] MEDS: Pregabalin 75 MG CAPSULE PO ×2 (10:37→21:17)
[2022-04-17] MEDS: Aspirin Enteric Coated 81 MG TABLET.DR PO (10:37)
[2022-04-17] MEDS: atenoloL 50 MG TABLET PO (10:37)
[2022-04-17] MEDS: predniSONE 20 MG TABLET 40 MG PO (10:37)
[2022-04-17] MEDS: Multivitamin TABLET 1 TAB PO (10:37)
[2022-04-17] MEDS: Dicyclomine HCl 10 MG CAPSULE PO ×2 (10:43→16:03)
[2022-04-17] MEDS: Fluticasone Propionate Nasal 16 GM SPRAY 2 SPRAY NOSTRIL-B (10:44)
[2022-04-17] MEDS: oxyCODONE HCl Immed Release 5 MG TABLET PO ×3 (13:00→21:17)
--- NOTE | 2022-04-17 13:04 | P.PNIM_ITS ---
Subjective Subjective Date of Service: 04/17/22 Interval History: the patient was seen and evaluated this morning Laying in bed, feels comfortable exertional shortness of breath, generalized abd pain No reported other overnight events. Physical Exam Vital Signs: Vital Signs: Last Vital Signs Temp 98.7 F 04/17/22 11:47 Pulse 78 04/17/22 11:47 Resp 17 04/17/22 11:47 BP 138/67 04/17/22 11:47 Pulse Ox 97 04/17/22 11:47 O2 Del Method 04/17/22 11:47 O2 Flow Rate 1 04/17/22 07:33 BMI result Body Mass Index 26.8 Const: Other: Constitutional : Awake, interactive, not in distress Neck : Normal inspection, Supple Cardiovascular : RRR, no JVP, no lower extremity edema Respiratory : good bilateral air entry, no crackles, wheezes or rhonchi Gastrointestinal: soft, lax, Normal bowel sounds, Non tender Skin : Warm, Dry Neurological : Alert & oriented x3, No focal deficit , CN 2-12 within normal Objective Data Active Medications Acetaminophen (Acetaminophen 325 Mg Tablet) 650 mg PO Q6H PRN PRN Reason: Pain, Mild (Pain Scale 1-3) Last Admin: 04/14/22 13:00 Dose: 650 mg Documented By: SAVAGE Albuterol Sulfate (Albuterol Sulfate (0.083%) 2.5 Mg/3 Ml Vial.Neb) 2.5 mg INHALE Q4H PRN PRN Reason: Shortness of Breath/Wheezing Aspirin (Aspirin Enteric Coated 81 Mg Tablet.) 81 mg PO DAILY [facility] Last Admin: 04/17/22 10:37 Dose: 81 mg Documented By: LITA Atenolol (Atenolol 50 Mg Tablet) 50 mg PO DAILY [facility]; Protocol Last Admin: 04/17/22 10:37 Dose: 50 mg Documented By: LITA Atorvastatin Calcium (Atorvastatin Calcium 40 Mg Tablet) 40 mg PO DAILY [facility] Last Admin: 04/17/22 10:36 Dose: 40 mg Documented By: LITA Azithromycin (Azithromycin 500 Mg Tablet) 500 mg PO Q24H [facility] Last Admin: 04/17/22 10:37 Dose: 500 mg Documented By: LITA Diazepam (Diazepam 2 Mg Tablet) 1 mg PO BEDTIME PRN PRN Reason: Restlessness Last Admin: 04/16/22 21:21 Dose: 1 mg Documented By: MERRY Dicyclomine HCl (Dicyclomine Hcl 10 Mg Capsule) 10 mg PO TIDAC [facility] Last Admin: 04/17/22 10:43 Dose: 10 mg Documented By: LITA Docusate Sodium (Docusate Sodium 100 Mg Capsule) 100 mg PO DAILY PRN PRN Reason: Constipation Last Admin: 04/11/22 10:04 Dose: 100 mg Documented By: LENI Enoxaparin Sodium (Enoxaparin Sodium 40 Mg/0.4 Ml Syringe) 40 mg SUBCUT DAILY@0600 [facility] Last Admin: 04/17/22 07:49 Dose: Not Given Documented By: MERRY Non-Admin Reason: Patient Asleep Fluticasone Propionate (Fluticasone Propionate Nasal 16 Gm [place]) 2 spray NOSTRIL-B DAILY [facility] Last Admin: 04/17/22 10:44 Dose: 2 spray Documented By: LITA Furosemide (Furosemide 20 Mg Tablet) 20 mg PO DAILY [facility]; Protocol Last Admin: 04/17/22 10:36 Dose: 20 mg Documented By: LITA Guaifenesin (Guaifenesin 100 Mg/5 Ml Liquid) 5 ml PO Q6H PRN PRN Reason: Cough Last Admin: 04/15/22 13:08 Dose: 5 ml Documented By: JOSE ROBERTO Melatonin (Melatonin 3 Mg Tablet) 6 mg PO BEDTIME PRN PRN Reason: Sleep Last Admin: 04/16/22 21:22 Dose: 6 mg Documented By: MERRY Melatonin (Melatonin 3 Mg Tablet) 6 mg PO BEDTIME PRN PRN Reason: Insomnia Multivitamins/Vitamin C (Multivitamin Tablet) 1 tab PO DAILY [facility] Last Admin: 04/17/22 10:37 Dose: 1 tab Documented By: LITA Pt Own (Fluticasone- Umeclidin-Vilanter [ Trelegy Ellipta] 100 -62.5-25 Mcg 1 puff INHALE RDAILY [facility] Last Admin: 04/17/22 08:15 Dose: 1 puff Documented By: LITA Omeprazole (Omeprazole 40 Mg Cain.) 40 mg PO BID@0630,1630 [facility] Last Admin: 04/17/22 07:48 Dose: Not Given Documented By: MERRY Non-Admin Reason: Patient Asleep Ondansetron HCl (Ondansetron Hcl 4 Mg/2 Ml Vial) 4 mg IVPUSH Q8H PRN PRN Reason: Nausea and Vomiting Last Admin: 04/09/22 13:04 Dose: 4 mg Documented By: DUNIAORRMelina Oxycodone HCl (Oxycodone Hcl Immed Release 5 Mg Tablet) 5 mg PO Q4H PRN PRN Reason: Pain, Severe (Pain Scale 7-10) Last Admin: 04/17/22 13:00 Dose: 5 mg Documented By: LITA Pharmacy Consult (Consult Rx Perform Med Rec) 1 each MISCELLANE ONCE PRN PRN Reason: Consult order Prednisone (Prednisone 20 Mg Tablet) 40 mg PO DAILY [facility] Last Admin: 04/17/22 10:37 Dose: 40 mg Documented By: LITA Pregabalin (Pregabalin 75 Mg Capsule) 75 mg PO BID [facility] Last Admin: 04/17/22 10:37 Dose: 75 mg Documented By: LITA Sodium Chloride (0.9 % Sodium Chloride Flush 3 Ml Syringe) 3 ml IVFLUSH QSHIFT [facility] Last Admin: 04/17/22 10:38 Dose: 3 ml Documented By: LITA Labs 04/16/22 06:11 04/16/22 06:11 Labs: Laboratory Results - last 24 hr 04/10/22 12:44 Ur L.pneumophila Ag Not Detected Assessment and Plan (1) COPD exacerbation: Status: Acute (2) Acute CHF: Status: Acute (3) Abdominal pain: Status: Acute (4) Acute respiratory failure with hypoxia: Status: Acute Plan 76-year-old female with past medical history of COPD, CHF presents to the hospital with complaints of abdominal pain found to be hypoxic acute hypoxic respiratory failure due to copd with acute decopmensation and acute on chronic diastolic chf weaned off O2 pulm input appreciated continue prednisone, nebs continue azithro, lasix changed from IV to PO cardio input appreciated, to do stress test: if positive Angiogram, if negative can schedule Endoscopy hyponatermia monitor, mild hyperkalemia resolved abdominal pain gi appreciated, IBS vs pud Continue bentyl, Simethicone plan for inpatient EGD once cleared by cardiology continue ppi hypertension atenolol holding amlodipine for low normal bp, now with some elevated readings, but will continue to monitor off amlodipine CAD asa, statin plan for cath when resp status improved dvt prophylaxis - lovenox full code reason for continued hospitalization: pending stress test and cardiology team planning Time Spent With Patient Time: Total time managing care of this patient today ____ minutes. Quality Stroke Does the patient have a stroke diagnosis?: No VTE Prior VTE?: No VTE Risk Level:: Medical - moderate - high VTE Device Contraindication: Treatment Not Indicated VTE Drug Contraindication: N/A - Med Ordered
--- NOTE | 2022-04-17 13:18 | PM.GIPN ---
Subjective Subjective Date of Service: 04/17/22 Interval History: c/o epigastric belching and bloating Critical Care Time (minutes): 0 Physical Exam Vital Signs: Vital Signs: Last Vital Signs Temp 98.7 F 04/17/22 11:47 Pulse 78 04/17/22 11:47 Resp 17 04/17/22 11:47 BP 138/67 04/17/22 11:47 Pulse Ox 97 04/17/22 11:47 O2 Del Method 04/17/22 11:47 O2 Flow Rate 1 04/17/22 07:33 BMI result Body Mass Index 26.8 GI: Other: abdomen is soft and nontender Objective Data Labs 04/16/22 06:11 04/16/22 06:11 Labs: Laboratory Results - last 24 hr 04/10/22 12:44 Ur L.pneumophila Ag Not Detected Procedures Date of Service Date of Service: 04/17/22 Progress Note: A&P Assessment and plan (1) Abdominal pain: Status: Acute Plan continue dicyclomine, add simethicone for bloating EGD tomorrow if cleared by cardiology pt and daughter aware of risks and benefits and agree to proceed. Time Spent With Patient Time: Total time managing care of this patient today ____ minutes. Quality Stroke Does the patient have a stroke diagnosis?: No VTE Prior VTE?: No VTE Risk Level:: Medical - moderate - high VTE Device Contraindication: Treatment Not Indicated VTE Drug Contraindication: N/A - Med Ordered
--- NOTE | 2022-04-17 15:24 | PM.PNCARD ---
Subjective Subjective Date of Service: 04/17/22 Interval history: Seen examined at bedside. Feeling better. Physical Exam Vital Signs: Last Vital Signs Temp 97.1 F 04/17/22 14:53 Pulse 61 04/17/22 14:53 Resp 16 04/17/22 14:53 BP 108/60 04/17/22 14:53 Pulse Ox 93 04/17/22 14:53 O2 Del Method 04/17/22 14:53 O2 Flow Rate 1 04/17/22 07:33 BMI result Body Mass Index 26.8 GENERAL APPEARANCE: in no acute distress, pleasant. NECK: no carotid bruit. SKIN: no suspicious lesions, warm and dry. HEART: no murmurs, regular rate and rhythm. LUNGS: Mild end expiratory wheezes. ABDOMEN: soft, nontender. EXTREMITIES: mild edema. PERIPHERAL PULSES: equal. NEUROLOGIC: No gross deficits, AAO X 3 Objective Labs and Meds 04/16/22 06:11 04/16/22 06:11 Lab results: Laboratory Results - last 24 hr 04/10/22 12:44 Ur L.pneumophila Ag Not Detected Imaging Radiologist's impression: Impressions Myocardial Perfusion Scan Nuc Med 04/17/22 09:30 Impression: 1. 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 Suboptimal study. 2. Gated LVEF is 51% during stress and 64% during rest. 3. Transient ischemic dilatation not present. EKG component of the test reported separately. Progress Note: A&P Assessment and plan (1) COPD exacerbation: Status: Acute (2) CAD (coronary artery disease): Status: Acute (3) Acute CHF: Status: Acute Plan 76-year-old female with COPD exacerbation and mild congestive heart failure. Clinically appears euvolemic. Peripheral edema is likely related amlodipine and pregabalin. Amlodipine has been discontinued and I think that pregabalin should also be discontinued. Continue oral diuretics. Compression stockings. She underwent stress testing today which showed probable known transmural infarct in the apical anterior, adjacent apex, basal inferoseptal daniels. Was thought to be a suboptimal study. No transient ischemic dilatation was noticed. She is having significant abdominal symptoms. I think she should have endoscopy as being planned. She is intermediate risk for perioperative complications. Will follow along with you. Thank you for allowing me to participate in the care of your patient. Please feel free to contact me if you have any questions. Time Spent With Patient Time: Total time managing care of this patient today ____ minutes. Progress Note: Quality Stroke Does the patient have a stroke diagnosis?: No Procedures Date of Service Date of Service: 04/17/22
[2022-04-17] MEDS: Simethicone 80 MG TAB.CHEW PO ×2 (16:03→21:18)
[2022-04-17] MEDS: Omeprazole 40 MG CAPSULE.DR PO (16:03)
--- NOTE | 2022-04-17 17:24 | MHC.SHP ---
Pre-Procedural Eval Section A Date of Service: 04/17/22 The patient is an INPATIENT: Yes Changes since office visit: No Cold of Flu in the past 2 weeks, No New Medical Problems, No Changes in Medication and No Patient answered all questions The History & Physical has been completed within 30 days and I have reviewed it.: Yes Section B Chief Complaint: hypoxic resp failure, abd pain Allergies: Allergies Allergy/AdvReac Type Severity Reaction Status Date / Time lisinopril [LISINOPRIL] Allergy Intermediate MUSCLE Verified 04/07/22 20:49 WEAKNESS duloxetine Allergy Unknown Verified 04/07/22 21:08 hydrochlorothiazide AdvReac Unknown Verified 04/07/22 21:07 Plan I have reviewed the history and physical and performed a pertinent physical examination on my patient. No changes have occurred unless specified. Time Spent With Patient Time: Total time managing care of this patient today ____ minutes.
[2022-04-17] MEDS: diazePAM 2 MG TABLET 1 MG PO (21:19)
[2022-04-17] MEDS: Melatonin 3 MG TABLET 6 MG PO (21:20)
[2022-04-18] VITALS (10 sets, daily range): BP systolic 132–174; BP diastolic 64–80; PULSE 58–70; RESP 16–20; TEMP 36.3–37.1; O2SAT 93–98; BMI 26.6; BMI 23.2
[2022-04-18] MEDS: 0.9 % Sodium Chloride Flush 3 ML SYRINGE IVFLUSH ×4 (01:32→21:04)
[2022-04-18] MEDS: Omeprazole 40 MG CAPSULE.DR PO ×2 (05:55→17:38)
[2022-04-18] MEDS: oxyCODONE HCl Immed Release 5 MG TABLET PO ×2 (05:59→21:09)
[2022-04-18] MEDS: Dicyclomine HCl 10 MG CAPSULE PO ×2 (09:15→17:37)
[2022-04-18] MEDS: Aspirin Enteric Coated 81 MG TABLET.DR PO (09:15)
[2022-04-18] MEDS: predniSONE 20 MG TABLET 40 MG PO (09:16)
[2022-04-18] MEDS: Furosemide 20 MG TABLET PO (09:16)
[2022-04-18] MEDS: Azithromycin 500 MG TABLET PO (09:16)
[2022-04-18] MEDS: Multivitamin TABLET 1 TAB PO (09:16)
[2022-04-18] MEDS: Atorvastatin Calcium 40 MG TABLET PO (09:16)
[2022-04-18] MEDS: Simethicone 80 MG TAB.CHEW PO ×4 (09:17→21:02)
[2022-04-18] MEDS: atenoloL 50 MG TABLET PO (09:17)
[2022-04-18] MEDS: Fluticasone Propionate Nasal 16 GM SPRAY 2 SPRAY NOSTRIL-B (09:17)
--- NOTE | 2022-04-18 10:36 | HO.ANESPROP2 ---
HPI - Anesthesia Eval Consult details Narrative: 76 year old for upper endo PMFSH Active Problems Active Problems: All Active Problems (Updated 04/10/22 @ 09:05 by Abraham Jacobsen MD) COPD exacerbation (Acute) CAD (coronary artery disease) (Acute) Acute CHF (Acute) Elevated brain natriuretic peptide (BNP) level (Acute) Acute respiratory failure with hypoxia (Acute) Shortness of breath (Acute) Abdominal pain (Acute) Bilateral lower extremity edema (Acute) Past Medical History Medical History CAD (coronary artery disease) History of CHF (congestive heart failure) History of COPD Hypertension Family History Family History (Updated 04/08/22 @ 09:55 by Seun Brar MD) Mother CHF (congestive heart failure) ICD (implantable cardioverter-defibrillator) in place Father Heart disease Other History of CAD (coronary artery disease) Family history of problems with anesthesia: No Surgical History Surgical History S/P AAA repair History of Problems with Anesthesia: No Social History Social History Household Members: None Housing: House Do you presently have visiting nurse or other home services: No Alcohol intake: never Patient Tobacco Use Status: Former Tobacco user Quit Date: 6 years Tobacco use type: Cigarette e-Cigarette/Vaping Use: Never Used Second Hand Smoke Exposure: No service: No Meds Allergies Allergy/AdvReac Type Severity Reaction Status Date / Time lisinopril [LISINOPRIL] Allergy Intermediate MUSCLE Verified 04/07/22 20:49 WEAKNESS duloxetine Allergy Unknown Verified 04/07/22 21:08 hydrochlorothiazide AdvReac Unknown Verified 04/07/22 21:07 Active Medications: Current Medications Acetaminophen (Acetaminophen 325 Mg Tablet) 650 mg PO Q6H PRN PRN Reason: Pain, Mild (Pain Scale 1-3) Last Admin: 04/14/22 13:00 Dose: 650 mg Albuterol Sulfate (Albuterol Sulfate (0.083%) 2.5 Mg/3 Ml Vial.Neb) 2.5 mg INHALE Q4H PRN PRN Reason: Shortness of Breath/Wheezing Aspirin (Aspirin Enteric Coated 81 Mg Tablet.) 81 mg PO DAILY KADI Last Admin: 04/18/22 09:15 Dose: 81 mg Atenolol (Atenolol 50 Mg Tablet) 50 mg PO DAILY [facility]; Protocol Last Admin: 04/18/22 09:17 Dose: 50 mg Atorvastatin Calcium (Atorvastatin Calcium 40 Mg Tablet) 40 mg PO DAILY [facility] Last Admin: 04/18/22 09:16 Dose: 40 mg Azithromycin (Azithromycin 500 Mg Tablet) 500 mg PO Q24H [facility] Last Admin: 04/18/22 09:16 Dose: 500 mg Diazepam (Diazepam 2 Mg Tablet) 1 mg PO BEDTIME PRN PRN Reason: Restlessness Last Admin: 04/17/22 21:19 Dose: 1 mg Dicyclomine HCl (Dicyclomine Hcl 10 Mg Capsule) 10 mg PO TIDAC [facility] Last Admin: 04/18/22 09:15 Dose: 10 mg Docusate Sodium (Docusate Sodium 100 Mg Capsule) 100 mg PO DAILY PRN PRN Reason: Constipation Last Admin: 04/11/22 10:04 Dose: 100 mg Enoxaparin Sodium (Enoxaparin Sodium 40 Mg/0.4 Ml Syringe) 40 mg SUBCUT DAILY@0600 [facility] Last Admin: 04/17/22 07:49 Dose: Not Given Fluticasone Propionate (Fluticasone Propionate Nasal 16 Gm [place]) 2 spray NOSTRIL-B DAILY [facility] Last Admin: 04/18/22 09:17 Dose: 2 spray Furosemide (Furosemide 20 Mg Tablet) 20 mg PO BID@0900,1800 [facility]; Protocol Last Admin: 04/18/22 09:16 Dose: 20 mg Guaifenesin (Guaifenesin 100 Mg/5 Ml Liquid) 5 ml PO Q6H PRN PRN Reason: Cough Last Admin: 04/15/22 13:08 Dose: 5 ml Melatonin (Melatonin 3 Mg Tablet) 6 mg PO BEDTIME PRN PRN Reason: Sleep Last Admin: 04/17/22 21:20 Dose: 6 mg Melatonin (Melatonin 3 Mg Tablet) 6 mg PO BEDTIME PRN PRN Reason: Insomnia Multivitamins/Vitamin C (Multivitamin Tablet) 1 tab PO DAILY [facility] Last Admin: 04/18/22 09:16 Dose: 1 tab Pt Own (Fluticasone- Umeclidin-Vilanter [ Trelegy Ellipta] 100 -62.5-25 Mcg 1 puff INHALE RDAILY [facility] Last Admin: 04/18/22 09:15 Dose: 1 puff Omeprazole (Omeprazole 40 Mg Capsule.Dr) 40 mg PO BID@0630,1630 [facility] Last Admin: 04/18/22 05:55 Dose: 40 mg Ondansetron HCl (Ondansetron Hcl 4 Mg/2 Ml Vial) 4 mg IVPUSH Q8H PRN PRN Reason: Nausea and Vomiting Last Admin: 04/09/22 13:04 Dose: 4 mg Oxycodone HCl (Oxycodone Hcl Immed Release 5 Mg Tablet) 5 mg PO Q4H PRN PRN Reason: Pain, Severe (Pain Scale 7-10) Last Admin: 04/18/22 05:59 Dose: 5 mg Pharmacy Consult (Consult Rx Perform Med Rec) 1 each MISCELLANE ONCE PRN PRN Reason: Consult order Prednisone (Prednisone 20 Mg Tablet) 40 mg PO DAILY [facility] Last Admin: 04/18/22 09:16 Dose: 40 mg Pregabalin (Pregabalin 75 Mg Capsule) 75 mg PO BID [facility] Last Admin: 04/18/22 09:52 Dose: Not Given Simethicone (Simethicone 80 Mg Tab.Chew) 80 mg PO QIDWMHS [facility] Last Admin: 04/18/22 09:17 Dose: 80 mg Sodium Chloride (0.9 % Sodium Chloride Flush 3 Ml Syringe) 3 [facility] Last Admin: 04/18/22 09:17 Dose: 3 ml Home Medications Medication Instructions Recorded Confirmed Last Taken Type acetaminophen 500 mg tablet 1,000 mg PO Q6H PRN Back Pain 04/08/22 04/08/22 Unknown History albuterol sulfate 2.5 mg/3 mL 2 vial inhalation Q4H PRN wheezing 04/08/22 04/08/22 Unknown History (0.083 %) solution for nebulization albuterol sulfate 90 mcg/actuation 2 puff inhalation Q4H PRN wheezing 04/08/22 04/08/22 Unknown History aerosol inhaler amlodipine 5 mg tablet 1 tab PO DAILY 04/08/22 04/08/22 04/07/22 09:00 History ascorbic acid (vitamin C) 500 mg 500 mg PO DAILY 04/08/22 04/08/22 04/07/22 09:00 History tablet (Vitamin C) aspirin 81 mg tablet,delayed 81 mg PO DAILY 0104/08/22 04/07/22 09:00 History release atenolol 50 mg tablet 1 tab PO DAILY 04/08/22 04/08/22 04/07/22 09:00 History atorvastatin 40 mg tablet 1 tab PO DAILY 04/08/22 04/08/22 04/07/22 09:00 History calcium carbonate 600 mg-vitamin 1 tab PO DAILY 04/08/22 04/08/22 04/07/22 09:00 History D3 5 mcg (200 unit) tablet diazepam 5 mg tablet 1 tab PO BEDTIME PRN restless legs 04/08/22 04/08/22 Unknown History fluticasone fur. 100 mcg-umeclid 1 puff inhalation DAILY 04/08/22 04/08/22 04/07/22 09:00 History 62.5 mcg-vilant 25 mcg inhalat.powder (Trelegy Ellipta) fluticasone propionate 50 2 spray intranasal DAILY 04/08/22 04/08/22 04/07/22 09:00 History mcg/actuation nasal spray,suspension furosemide 20 mg tablet 1 tab PO BID 04/08/22 04/08/22 04/07/22 09:00 History melatonin 5 mg tablet 5 mg PO BEDTIME PRN Insomnia 04/08/22 04/08/22 Unknown History multivitamin 1 tab PO DAILY 04/08/22 04/08/22 04/07/22 09:00 History omeprazole 20 mg capsule,delayed 1 cap PO DAILY@0630 04/08/22 04/08/22 04/07/22 09:00 History release pregabalin 50 mg capsule 1 cap PO BEDTIME 04/08/22 04/08/22 Unknown History pregabalin 75 mg capsule 1 cap PO DAILY 04/08/22 04/08/22 04/07/22 09:00 History vitamin E 268 mg (400 unit) capsule 268 mg PO DAILY 04/08/22 04/08/22 04/07/22 09:00 History Exam Exam Date and Time: April 18, 2022 1036 Height,Weight and Vital Signs: Height 5 ft 3 in Weight 59.421 kg Last Vital Signs Temp 98.0 F 04/18/22 09:52 Pulse 58 04/18/22 09:52 Resp 18 04/18/22 09:52 BP 173/80 H 04/18/22 09:52 Pulse Ox 97 04/18/22 09:52 O2 Del Method 04/18/22 09:52 O2 Flow Rate 1 04/18/22 07:39 Pertinent Lab Results Pertinent Lab Results: Laboratory Tests 04/07/22 04/07/22 04/07/22 18:24 18:24 18:24 WBC 8.8 RBC 4.89 Hgb 15.8 Hct 46.4 MCV 94.9 MCH 32.3 MCHC 34.1 RDW 14.6 Plt Count 243 MPV 9.8 Immature Gran % (Auto) 0.7 H Neut % (Auto) 77.5 H Lymph % (Auto) 10.4 L [place] % (Auto) 10.3 Eos % (Auto) 0.8 Baso % (Auto) 0.3 Lymph # (Auto) 0.9 L [place] # (Auto) 0.9 Eos # (Auto) 0.1 Baso # (Auto) 0.0 Abs Immat Gran (auto) 0.06 H Absolute Neuts (auto) 6.9 Absolute Nucleated RBC 0.000 Nucleated RBC % (auto) 0.0 ESR D-Dimer High Sensitivty Sodium Potassium Chloride Carbon Dioxide Anion Gap BUN Creatinine Estim Creat Clear Calc Estimated GFR Random Glucose Fasting Glucose Calcium Magnesium Total Bilirubin Direct Bilirubin AST ALT Alkaline Phosphatase Troponin I High Sens 7.0 C-Reactive Protein B-Natriuretic Peptide 206 H Total Protein Albumin Lipase Urine Color Urine Appearance Urine pH Ur Specific [place] Urine Protein Urine Glucose (UA) Urine Ketones Urine Blood Urine Nitrite Ur Leukocyte Esterase IgE Rheumatoid Factor FAMILIA Screen FAMILIA Titer FAMILIA Titer 2 FAMILIA Titer 3 FAMILIA Pattern FAMILIA Pattern 2 FAMILIA Pattern 3 Influenza Type A (PCR) Influenza Type B (PCR) Ur L.pneumophila Ag RSV RNA Qual (PCR) SARS-CoV-2 RNA (RT-PCR) 04/07/22 04/07/22 04/07/22 19:05 19:14 20:50 WBC 7.5 RBC 4.39 Hgb 14.1 Hct 41.9 MCV 95.4 MCH 32.1 MCHC 33.7 RDW 14.6 Plt Count 191 MPV 9.2 L Immature Gran % (Auto) 0.4 Neut % (Auto) 74.4 H Lymph % (Auto) 13.2 L [place] % (Auto) 10.3 Eos % (Auto) 1.3 Baso % (Auto) 0.4 Lymph # (Auto) 1.0 L [place] # (Auto) 0.8 Eos # (Auto) 0.1 Baso # (Auto) 0.0 Abs Immat Gran (auto) 0.03 Absolute Neuts (auto) 5.6 Absolute Nucleated RBC 0.000 Nucleated RBC % (auto) 0.0 ESR D-Dimer High Sensitivty 816 Sodium Potassium Chloride Carbon Dioxide Anion Gap BUN Creatinine Estim Creat Clear Calc Estimated GFR Random Glucose Fasting Glucose Calcium Magnesium Total Bilirubin Direct Bilirubin AST ALT Alkaline Phosphatase Troponin I High Sens C-Reactive Protein B-Natriuretic Peptide Total Protein Albumin Lipase Urine Color Urine Appearance Urine pH Ur Specific [place] Urine Protein Urine Glucose (UA) Urine Ketones Urine Blood Urine Nitrite Ur Leukocyte Esterase IgE Rheumatoid Factor FAMILIA Screen FAMILIA Titer FAMILIA Titer 2 FAMILIA Titer 3 FAMILIA Pattern FAMILIA Pattern 2 FAMILIA Pattern 3 Influenza Type A (PCR) NEGATIVE Influenza Type B (PCR) NEGATIVE Ur L.pneumophila Ag RSV RNA Qual (PCR) NEGATIVE SARS-CoV-2 RNA (RT-PCR) NEGATIVE 04/07/22 04/07/22 04/07/22 21:20 21:20 22:18 WBC RBC Hgb Hct MCV MCH MCHC RDW Plt Count MPV Immature Gran % (Auto) Neut % (Auto) Lymph % (Auto) [place] % (Auto) Eos % (Auto) Baso % (Auto) Lymph # (Auto) [place] # (Auto) Eos # (Auto) Baso # (Auto) Abs Immat Gran (auto) Absolute Neuts (auto) Absolute Nucleated RBC Nucleated RBC % (auto) ESR D-Dimer High Sensitivty Sodium 140 Potassium 3.8 Chloride 102 Carbon Dioxide 29 Anion Gap 13 BUN 8 L Creatinine 0.63 Estim Creat Clear Calc 64.8 Estimated GFR > 60 Random Glucose 92 Fasting Glucose Calcium 9.1 Magnesium Total Bilirubin 0.6 Direct Bilirubin 0.2 AST 22 ALT 37 H Alkaline Phosphatase 58 Troponin I High Sens 8.1 C-Reactive Protein B-Natriuretic Peptide Total Protein 6.1 L Albumin 3.9 Lipase 16 Urine Color Yellow Urine Appearance Clear Urine pH 7.0 Ur Specific [place] <= 1.005 Urine Protein Negative Urine Glucose (UA) Negative Urine Ketones Negative Urine Blood Negative Urine Nitrite Negative Ur Leukocyte Esterase Negative IgE Rheumatoid Factor FAMILIA Screen FAMILIA Titer FAMILIA Titer 2 FAMILIA Titer 3 FAMILIA Pattern FAMILIA Pattern 2 FAMILIA Pattern 3 Influenza Type A (PCR) Influenza Type B (PCR) Ur L.pneumophila Ag RSV RNA Qual (PCR) SARS-CoV-2 RNA (RT-PCR) 04/08/22 04/10/22 04/10/22 04:53 05:37 05:37 WBC 3.8 L RBC 4.27 Hgb 13.6 Hct 40.7 MCV 95.3 MCH 31.9 MCHC 33.4 RDW 14.0 Plt Count 182 MPV 9.7 Immature Gran % (Auto) Neut % (Auto) Lymph % (Auto) [place] % (Auto) Eos % (Auto) Baso % (Auto) Lymph # (Auto) [place] # (Auto) Eos # (Auto) Baso # (Auto) Abs Immat Gran (auto) Absolute Neuts (auto) Absolute Nucleated RBC 0.000 Nucleated RBC % (auto) 0.0 ESR D-Dimer High Sensitivty Sodium 138 129 L Potassium 4.0 5.4 H D Chloride 98 95 L Carbon Dioxide 32 H 26 Anion Gap 12 13 BUN 8 L 16 Creatinine 0.68 0.71 Estim Creat Clear Calc 60.0 57.5 Estimated GFR > 60 > 60 Random Glucose 94 Fasting Glucose 154 H Calcium 9.1 9.0 Magnesium 1.8 Total Bilirubin 0.6 Direct Bilirubin AST 22 ALT 34 H Alkaline Phosphatase 59 Troponin I High Sens C-Reactive Protein B-Natriuretic Peptide Total Protein 5.8 L Albumin 3.9 Lipase Urine Color Urine Appearance Urine pH Ur Specific [place] Urine Protein Urine Glucose (UA) Urine Ketones Urine Blood Urine Nitrite Ur Leukocyte Esterase IgE Rheumatoid Factor FAMILIA Screen FAMILIA Titer FAMILIA Titer 2 FAMILIA Titer 3 FAMILIA Pattern FAMILIA Pattern 2 FAMILIA Pattern 3 Influenza Type A (PCR) Influenza Type B (PCR) Ur L.pneumophila Ag RSV RNA Qual (PCR) SARS-CoV-2 RNA (RT-PCR) 04/10/22 04/10/22 04/10/22 05:37 11:01 12:44 WBC RBC Hgb Hct MCV MCH MCHC RDW Plt Count MPV Immature Gran % (Auto) Neut % (Auto) Lymph % (Auto) [place] % (Auto) Eos % (Auto) Baso % (Auto) Lymph # (Auto) [place] # (Auto) Eos # (Auto) Baso # (Auto) Abs Immat Gran (auto) Absolute Neuts (auto) Absolute Nucleated RBC Nucleated RBC % (auto) ESR 4 D-Dimer High Sensitivty Sodium Potassium Chloride Carbon Dioxide Anion Gap BUN Creatinine Estim Creat Clear Calc Estimated GFR Random Glucose Fasting Glucose Calcium Magnesium Total Bilirubin Direct Bilirubin AST ALT Alkaline Phosphatase Troponin I High Sens C-Reactive Protein B-Natriuretic Peptide Total Protein Albumin Lipase Urine Color Urine Appearance Urine pH Ur Specific [place] Urine Protein Urine Glucose (UA) Urine Ketones Urine Blood Urine Nitrite Ur Leukocyte Esterase IgE 15 Rheumatoid Factor FAMILIA Screen FAMILIA Titer FAMILIA Titer 2 FAMILIA Titer 3 FAMILIA Pattern FAMILIA Pattern 2 FAMILIA Pattern 3 Influenza Type A (PCR) Influenza Type B (PCR) Ur L.pneumophila Ag Not Detected RSV RNA Qual (PCR) SARS-CoV-2 RNA (RT-PCR) 04/11/22 04/11/22 04/11/22 05:37 05:37 05:37 WBC 7.8 RBC 4.14 L Hgb 13.4 Hct 38.9 MCV 94.0 MCH 32.4 MCHC 34.4 RDW 14.0 Plt Count 181 MPV 9.6 Immature Gran % (Auto) Neut % (Auto) Lymph % (Auto) [place] % (Auto) Eos % (Auto) Baso % (Auto) Lymph # (Auto) [place] # (Auto) Eos # (Auto) Baso # (Auto) Abs Immat Gran (auto) Absolute Neuts (auto) Absolute Nucleated RBC 0.000 Nucleated RBC % (auto) 0.0 ESR D-Dimer High Sensitivty Sodium 129 L Potassium 5.4 H Chloride 97 Carbon Dioxide 25 Anion Gap 12 BUN 16 Creatinine 0.78 Estim Creat Clear Calc 52.3 Estimated GFR > 60 Random Glucose Fasting Glucose 132 H Calcium 9.0 Magnesium Total Bilirubin 0.4 Direct Bilirubin 0.2 AST 13 ALT 22 Alkaline Phosphatase 53 Troponin I High Sens C-Reactive Protein 0.22 B-Natriuretic Peptide Total Protein 5.4 L Albumin 3.6 Lipase Urine Color Urine Appearance Urine pH Ur Specific [place] Urine Protein Urine Glucose (UA) Urine Ketones Urine Blood Urine Nitrite Ur Leukocyte Esterase IgE Rheumatoid Factor FAMILIA Screen NEGATIVE FAMILIA Titer TNP FAMILIA Titer 2 TNP FAMILIA Titer 3 TNP FAMILIA Pattern TNP FAMILIA Pattern 2 TNP FAMILIA Pattern 3 TNP Influenza Type A (PCR) Influenza Type B (PCR) Ur L.pneumophila Ag RSV RNA Qual (PCR) SARS-CoV-2 RNA (RT-PCR) 04/11/22 04/11/22 04/11/22 05:37 15:37 19:16 WBC RBC Hgb Hct MCV MCH MCHC RDW Plt Count MPV Immature Gran % (Auto) Neut % (Auto) Lymph % (Auto) [place] % (Auto) Eos % (Auto) Baso % (Auto) Lymph # (Auto) [place] # (Auto) Eos # (Auto) Baso # (Auto) Abs Immat Gran (auto) Absolute Neuts (auto) Absolute Nucleated RBC Nucleated RBC % (auto) ESR D-Dimer High Sensitivty Sodium Potassium Chloride Carbon Dioxide Anion Gap BUN Creatinine Estim Creat Clear Calc Estimated GFR Random Glucose Fasting Glucose Calcium Magnesium Total Bilirubin Direct Bilirubin AST ALT Alkaline Phosphatase Troponin I High Sens 3.8 4.0 C-Reactive Protein B-Natriuretic Peptide Total Protein Albumin Lipase Urine Color Urine Appearance Urine pH Ur Specific [place] Urine Protein Urine Glucose (UA) Urine Ketones Urine Blood Urine Nitrite Ur Leukocyte Esterase IgE Rheumatoid Factor < 13.0 FAMILIA Screen FAMILIA Titer FAMILIA Titer 2 FAMILIA Titer 3 FAMILIA Pattern FAMILIA Pattern 2 FAMILIA Pattern 3 Influenza Type A (PCR) Influenza Type B (PCR) Ur L.pneumophila Ag RSV RNA Qual (PCR) SARS-CoV-2 RNA (RT-PCR) 04/11/22 04/12/22 04/12/22 19:16 05:47 05:47 WBC 7.5 RBC 4.00 L Hgb 12.9 Hct 38.2 MCV 95.5 MCH 32.3 MCHC 33.8 RDW 14.2 Plt Count 180 MPV 9.9 Immature Gran % (Auto) Neut % (Auto) Lymph % (Auto) [place] % (Auto) Eos % (Auto) Baso % (Auto) Lymph # (Auto) [place] # (Auto) Eos # (Auto) Baso # (Auto) Abs Immat Gran (auto) Absolute Neuts (auto) Absolute Nucleated RBC 0.000 Nucleated RBC % (auto) 0.0 ESR D-Dimer High Sensitivty Sodium 129 L 132 L Potassium 5.6 H 5.2 H Chloride 95 L 98 Carbon Dioxide 26 25 Anion Gap 14 14 BUN 22 H 22 H Creatinine 1.00 0.74 Estim Creat Clear Calc 44.5 60.5 Estimated GFR 54 > 60 Random Glucose 180 H Fasting Glucose 123 H Calcium 9.1 9.0 Magnesium Total Bilirubin Direct Bilirubin AST ALT Alkaline Phosphatase Troponin I High Sens C-Reactive Protein B-Natriuretic Peptide Total Protein Albumin Lipase Urine Color Urine Appearance Urine pH Ur Specific [place] Urine Protein Urine Glucose (UA) Urine Ketones Urine Blood Urine Nitrite Ur Leukocyte Esterase IgE Rheumatoid Factor FAMILIA Screen FAMILIA Titer FAMILIA Titer 2 FAMILIA Titer 3 FAMILIA Pattern FAMILIA Pattern 2 FAMILIA Pattern 3 Influenza Type A (PCR) Influenza Type B (PCR) Ur L.pneumophila Ag RSV RNA Qual (PCR) SARS-CoV-2 RNA (RT-PCR) 04/13/22 04/13/22 04/14/22 05:55 05:55 05:40 WBC 7.1 8.0 RBC 4.11 L 4.18 L Hgb 13.2 13.3 Hct 39.1 39.5 MCV 95.1 94.5 MCH 32.1 31.8 MCHC 33.8 33.7 RDW 14.4 14.2 Plt Count 171 171 MPV 9.7 9.8 Immature Gran % (Auto) Neut % (Auto) Lymph % (Auto) [place] % (Auto) Eos % (Auto) Baso % (Auto) Lymph # (Auto) [place] # (Auto) Eos # (Auto) Baso # (Auto) Abs Immat Gran (auto) Absolute Neuts (auto) Absolute Nucleated RBC 0.000 0.000 Nucleated RBC % (auto) 0.0 0.0 ESR D-Dimer High Sensitivty Sodium 131 L Potassium 5.6 H Chloride 97 Carbon Dioxide 26 Anion Gap 14 BUN 23 H Creatinine 0.76 Estim Creat Clear Calc 58.9 Estimated GFR > 60 Random Glucose Fasting Glucose 131 H Calcium 9.1 Magnesium Total Bilirubin Direct Bilirubin AST ALT Alkaline Phosphatase Troponin I High Sens C-Reactive Protein B-Natriuretic Peptide Total Protein Albumin Lipase Urine Color Urine Appearance Urine pH Ur Specific [place] Urine Protein Urine Glucose (UA) Urine Ketones Urine Blood Urine Nitrite Ur Leukocyte Esterase IgE Rheumatoid Factor FAMILIA Screen FAMILIA Titer FAMILIA Titer 2 FAMILIA Titer 3 FAMILIA Pattern FAMILIA Pattern 2 FAMILIA Pattern 3 Influenza Type A (PCR) Influenza Type B (PCR) Ur L.pneumophila Ag RSV RNA Qual (PCR) SARS-CoV-2 RNA (RT-PCR) 04/14/22 04/15/22 04/15/22 05:40 05:24 05:24 WBC 8.8 RBC 4.55 Hgb 14.5 Hct 43.1 MCV 94.7 MCH 31.9 MCHC 33.6 RDW 14.3 Plt Count 199 MPV 10.1 Immature Gran % (Auto) Neut % (Auto) Lymph % (Auto) [place] % (Auto) Eos % (Auto) Baso % (Auto) Lymph # (Auto) [place] # (Auto) Eos # (Auto) Baso # (Auto) Abs Immat Gran (auto) Absolute Neuts (auto) Absolute Nucleated RBC 0.000 Nucleated RBC % (auto) 0.0 ESR D-Dimer High Sensitivty Sodium 130 L 132 L Potassium 5.0 5.3 H Chloride 98 96 Carbon Dioxide 26 29 Anion Gap 11 L 12 BUN 27 H 25 H Creatinine 0.75 0.73 Estim Creat Clear Calc 60.5 62.9 Estimated GFR > 60 > 60 Random Glucose Fasting Glucose 115 H 85 Calcium 8.6 8.9 Magnesium Total Bilirubin 0.5 Direct Bilirubin 0.2 AST 14 ALT 19 Alkaline Phosphatase 43 Troponin I High Sens C-Reactive Protein B-Natriuretic Peptide Total Protein 5.1 L Albumin 3.4 L Lipase Urine Color Urine Appearance Urine pH Ur Specific [place] Urine Protein Urine Glucose (UA) Urine Ketones Urine Blood Urine Nitrite Ur Leukocyte Esterase IgE Rheumatoid Factor FAMILIA Screen FAMILIA Titer FAMILIA Titer 2 FAMILIA Titer 3 FAMILIA Pattern FAMILIA Pattern 2 FAMILIA Pattern 3 Influenza Type A (PCR) Influenza Type B (PCR) Ur L.pneumophila Ag RSV RNA Qual (PCR) SARS-CoV-2 RNA (RT-PCR) 04/15/22 04/16/22 04/16/22 05:24 06:11 06:11 WBC 8.1 RBC 4.32 Hgb 13.8 Hct 41.3 MCV 95.6 MCH 31.9 MCHC 33.4 RDW 14.3 Plt Count 187 MPV 9.8 Immature Gran % (Auto) Neut % (Auto) Lymph % (Auto) [place] % (Auto) Eos % (Auto) Baso % (Auto) Lymph # (Auto) [place] # (Auto) Eos # (Auto) Baso # (Auto) Abs Immat Gran (auto) Absolute Neuts (auto) Absolute Nucleated RBC 0.000 Nucleated RBC % (auto) 0.0 ESR D-Dimer High Sensitivty Sodium 135 Potassium 4.2 D Chloride 101 Carbon Dioxide 27 Anion Gap 11 L BUN 19 H Creatinine 0.68 Estim Creat Clear Calc 67.4 Estimated GFR > 60 Random Glucose Fasting Glucose 80 Calcium 8.5 Magnesium Total Bilirubin Direct Bilirubin AST ALT Alkaline Phosphatase Troponin I High Sens C-Reactive Protein B-Natriuretic Peptide 225 H Total Protein Albumin Lipase Urine Color Urine Appearance Urine pH Ur Specific [place] Urine Protein Urine Glucose (UA) Urine Ketones Urine Blood Urine Nitrite Ur Leukocyte Esterase IgE Rheumatoid Factor FAMILIA Screen FAMILIA Titer FAMILIA Titer 2 FAMILIA Titer 3 FAMILIA Pattern FAMILIA Pattern 2 FAMILIA Pattern 3 Influenza Type A (PCR) Influenza Type B (PCR) Ur L.pneumophila Ag RSV RNA Qual (PCR) SARS-CoV-2 RNA (RT-PCR) Airway Mallampati Class: II TM Dist: >3cm Heart: rrr Lungs: cta Assessment and Plan Assessment Anesthesia Assessment: Anesthesia Plan Discussed and Chart Reviewed Final Anesthetic Review Family History of Problems with Anesthesia: No History of Problems with Anesthesia: No NPO: Yes ASA Class: III Final Preanesthetic Review: No Changes in Pt Med Stat, Meds/Allgs Chart Reviewed, Consent Obtained/Reviewed and Anes Risks/Benef Reviewed Patient Risk: Intermediate Procedure Risk: Low Anesthetic Plan Anesthetic Plan: MAC: and Agree w/ Assess. and Plan Disposition: Standard PACU and Inp. Admit - Standard Bed
--- NOTE | 2022-04-18 11:41 | PM.OP ---
Brief Operative Note Date of Service: 04/18/22 Pre-op diagnosis: epigastric pain Post-op diagnosis: same (lm esophagitis) Surgeon: Armand Bell Anesthesia: MAC Was an Gasoline Truck Operator used for this Procedure?: No Estimated blood loss (mL): 2 Pathology: other Condition: stable Disposition: PACU
--- NOTE | 2022-04-18 11:42 | PM.EVENT ---
Event Note Date of Service: 04/18/22 Event Note: EGD note dictated endoscopy shows lm esophagitis bx's taken continue present rx start diflucan Time Spent With Patient Time: Total time managing care of this patient today ____ minutes.
--- NOTE | 2022-04-18 12:12 | OP_ITS ---
SURGEON: Armand Bell MD INDICATIONS: Epigastric pain. PREOPERATIVE DIAGNOSIS: POSTOPERATIVE DIAGNOSIS: PROCEDURE PERFORMED: Upper endoscopy with biopsy. ESTIMATED BLOOD LOSS: COMPLICATIONS: ANESTHESIA: Monitored anesthesia care. ASSISTANTS: SPECIMENS: DESCRIPTION OF PROCEDURE: Date: 04/18/22. History and physical was performed. The risks and benefits of the procedure were explained to the patient. Informed consent was obtained. The patient was placed in the left lateral decubitus position. The Olympus video gastroscope was introduced into the esophagus, stomach, and duodenum. Examination was performed. The scope was removed. She tolerated the procedure well, and was taken to recovery room in stable condition. FINDINGS: Esophagus: The esophagus was coated with whitish patches consistent with Vicky esophagitis. Biopsies were obtained at 35 cm. Stomach: The stomach showed no evidence of masses, ulcers, or polyps. The antral biopsies were obtained. Duodenum: The bulb and second portion were normal. Biopsies were obtained from the second portion. IMPRESSION: Vicky esophagitis. RECOMMENDATION: Follow up the biopsy results. MD GILBERT Caldwell/VIKASHL / [id number] MTDD
[2022-04-18] MEDS: Furosemide 40 MG/4 ML VIAL IVPUSH (13:08)
[2022-04-18] MEDS: Fluconazole 100 MG TABLET 200 MG PO (13:08)
--- NOTE | 2022-04-18 13:52 | P.PNIM_ITS ---
Subjective Subjective Date of Service: 04/18/22 Interval History: the patient was seen and evaluated this morning reports worsening edema in lower extremities pain and burning sensation in abdomen improved shortness of breath No reported other overnight events. Review of Systems Review of Systems: Yes all other systems are reviewed and are negative Physical Exam Vital Signs: Vital Signs: Last Vital Signs Temp 97.3 F 04/18/22 12:15 Pulse 60 04/18/22 12:15 Resp 16 04/18/22 12:15 BP 132/67 04/18/22 12:15 Pulse Ox 95 04/18/22 12:15 O2 Del Method 04/18/22 12:15 O2 Flow Rate 1 04/18/22 12:15 BMI result Body Mass Index 23.2 Const: Other: Constitutional : Awake, interactive, not in distress Neck : Normal inspection, Supple Cardiovascular : RRR, no JVP, +1 lower extremity edema Respiratory : good bilateral air entry, no crackles, wheezes or rhonchi Gastrointestinal: soft, lax, Normal bowel sounds, Non tender Skin : Warm, Dry Neurological : Alert & oriented x3, No focal deficit Objective Data Active Medications Acetaminophen (Acetaminophen 325 Mg Tablet) 650 mg PO Q6H PRN PRN Reason: Pain, Mild (Pain Scale 1-3) Last Admin: 04/14/22 13:00 Dose: 650 mg Documented By: SAVAGE Albuterol Sulfate (Albuterol Sulfate (0.083%) 2.5 Mg/3 Ml Vial.[facility]) 2.5 mg INHALE Q4H PRN PRN Reason: Shortness of Breath/Wheezing Aspirin (Aspirin Enteric Coated 81 Mg Tablet.) 81 mg PO DAILY [facility] Last Admin: 04/18/22 09:15 Dose: 81 mg Documented By: BEST Atenolol (Atenolol 50 Mg Tablet) 50 mg PO DAILY [facility]; Protocol Last Admin: 04/18/22 09:17 Dose: 50 mg Documented By: BEST Atorvastatin Calcium (Atorvastatin Calcium 40 Mg Tablet) 40 mg PO DAILY [facility] Last Admin: 04/18/22 09:16 Dose: 40 mg Documented By: BEST Azithromycin (Azithromycin 500 Mg Tablet) 500 mg PO Q24H [facility] Last Admin: 04/18/22 09:16 Dose: 500 mg Documented By: BEST Diazepam (Diazepam 2 Mg Tablet) 1 mg PO BEDTIME PRN PRN Reason: Restlessness Last Admin: 04/17/22 21:19 Dose: 1 mg Documented By: MERRY Dicyclomine HCl (Dicyclomine Hcl 10 Mg Capsule) 10 mg PO TIDAC [facility] Last Admin: 04/18/22 12:56 Dose: Not Given Documented By: BEST Non-Admin Reason: Off Unit: Surgery Docusate Sodium (Docusate Sodium 100 Mg Capsule) 100 mg PO DAILY PRN PRN Reason: Constipation Last Admin: 04/11/22 10:04 Dose: 100 mg Documented By: LENI Enoxaparin Sodium (Enoxaparin Sodium 40 Mg/0.4 Ml Syringe) 40 mg SUBCUT DAILY@0600 [facility] Last Admin: 04/17/22 07:49 Dose: Not Given Documented By: MERRY Non-Admin Reason: Patient Asleep Fluconazole (Fluconazole 100 Mg Tablet) 200 mg PO DAILY [facility] Last Admin: 04/18/22 13:08 Dose: 200 mg Documented By: BEST Fluticasone Propionate (Fluticasone Propionate Nasal 16 Gm [place]) 2 spray NOSTRIL-B DAILY [facility] Last Admin: 04/18/22 09:17 Dose: 2 spray Documented By: BEST Furosemide (Furosemide 40 Mg/4 Ml Vial) 40 mg IVPUSH ONCE ONE; Protocol Stop: 04/18/22 14:01 Last Admin: 04/18/22 13:08 Dose: 40 mg Documented By: BEST Furosemide (Furosemide 40 Mg Tablet) 40 mg PO BID@0900,1800 [facility]; Protocol Guaifenesin (Guaifenesin 100 Mg/5 Ml Liquid) 5 ml PO Q6H PRN PRN Reason: Cough Last Admin: 04/15/22 13:08 Dose: 5 ml Documented By: RIOSCJESUS Isosorbide Mononitrate (Isosorbide Mononitrate 30 Mg Tab.Er.24h) 30 mg PO DAILY [facility]; Protocol Last Admin: 04/18/22 12:56 Dose: Not Given Documented By: BEST Non-Admin Reason: Off Unit: Surgery Melatonin (Melatonin 3 Mg Tablet) 6 mg PO BEDTIME PRN PRN Reason: Sleep Last Admin: 04/17/22 21:20 Dose: 6 mg Documented By: MERRY Melatonin (Melatonin 3 Mg Tablet) 6 mg PO BEDTIME PRN PRN Reason: Insomnia Multivitamins/Vitamin C (Multivitamin Tablet) 1 tab PO DAILY [facility] Last Admin: 04/18/22 09:16 Dose: 1 tab Documented By: BEST Pt Own (Fluticasone- Umeclidin-Vilanter [ Trelegy Ellipta] 100 -62.5-25 Mcg 1 puff INHALE RDAILY [facility] Last Admin: 04/18/22 09:15 Dose: 1 puff Documented By: BEST Omeprazole (Omeprazole 40 Mg Capsule.Dr) 40 mg PO BID@0630,1630 [facility] Last Admin: 04/18/22 05:55 Dose: 40 mg Documented By: MORENA Ondansetron HCl (Ondansetron Hcl 4 Mg/2 Ml Vial) 4 mg IVPUSH Q8H PRN PRN Reason: Nausea and Vomiting Last Admin: 04/09/22 13:04 Dose: 4 mg Documented By: LISA Oxycodone HCl (Oxycodone Hcl Immed Release 5 Mg Tablet) 5 mg PO Q4H PRN PRN Reason: Pain, Severe (Pain Scale 7-10) Last Admin: 04/18/22 05:59 Dose: 5 mg Documented By: MORENA Pharmacy Consult (Consult Rx Perform Med Rec) 1 each MISCELLANE ONCE PRN PRN Reason: Consult order Prednisone (Prednisone 20 Mg Tablet) 40 mg PO DAILY [facility] Last Admin: 04/18/22 09:16 Dose: 40 mg Documented By: BEST Pregabalin (Pregabalin 75 Mg Capsule) 75 mg PO BID [facility] Last Admin: 04/18/22 09:52 Dose: Not Given Documented By: BEST Non-Admin Reason: Patient Refused Simethicone (Simethicone 80 Mg Tab.Chew) 80 mg PO QIDWMHS [facility] Last Admin: 04/18/22 13:08 Dose: 80 mg Documented By: BEST Sodium Chloride (0.9 % Sodium Chloride Flush 3 Ml Syringe) 3 ml IVFLUSH QSHIFT [facility] Last Admin: 04/18/22 09:17 Dose: 3 ml Documented By: BEST Labs 04/16/22 06:11 04/16/22 06:11 Assessment and Plan (1) COPD exacerbation: Status: Acute (2) Acute CHF: Status: Acute (3) Elevated brain natriuretic peptide (BNP) level: Status: Acute (4) Acute respiratory failure with hypoxia: Status: Acute (5) Bilateral lower extremity edema: Status: Acute (6) Abdominal pain: Status: Acute Plan 76-year-old female with past medical history of COPD, CHF presents to the hospital with complaints of abdominal pain found to be hypoxic acute hypoxic respiratory failure due to copd with acute decopmensation and acute on chronic diastolic chf weaned off O2 pulm input appreciated continue prednisone, nebs continue azithro, give Lasix IV, increase PO dosage upon discharge cardio input appreciated, to do stress test: pending readings but overall staple and clear to do EGD hyponatermia monitor, mild hyperkalemia resolved abdominal pain gi appreciated, IBS vs pud Continue bentyl, Simethicone EGD showed Vicky esophagitis, likely 2/2 steroid usage continue ppi start Diflucan hypertension atenolol holding amlodipine for low normal bp, now with some elevated readings, but will continue to monitor off amlodipine CAD asa, statin plan for cath when resp status improved dvt prophylaxis - lovenox reason for continued hospitalization: F\U pending placement. Time Spent With Patient Time: Total time managing care of this patient today ____ minutes. Quality Stroke Does the patient have a stroke diagnosis?: No VTE Prior VTE?: No VTE Risk Level:: Medical - moderate - high VTE Device Contraindication: Treatment Not Indicated VTE Drug Contraindication: N/A - Med Ordered
--- NOTE | 2022-04-18 14:41 | MHC.CM.PN ---
pt wants [facility] instead of [facility] dc for 04/19 at 1
--- NOTE | 2022-04-18 15:19 | MHC.CM.PN ---
family will bring hcp to [facility] tomorrow
--- NOTE | 2022-04-18 16:28 | PM.PNCARD ---
Subjective Subjective Date of Service: 04/18/22 Interval history: Seen and examined at bedside. Since her breathing is improving every day. She just underwent endoscopy. She has peripheral edema. Physical Exam Vital Signs: Last Vital Signs Temp 98.1 F 04/18/22 15:38 Pulse 60 04/18/22 15:38 Resp 18 04/18/22 15:38 BP 170/78 H 04/18/22 15:38 Pulse Ox 97 04/18/22 15:38 O2 Del Method 04/18/22 15:38 O2 Flow Rate 1 04/18/22 12:15 BMI result Body Mass Index 23.2 GENERAL APPEARANCE: in no acute distress, pleasant. NECK: no carotid bruit. No JVD. SKIN: no suspicious lesions, warm and dry. HEART: no murmurs, regular rate and rhythm. LUNGS: Mild end expiratory wheezes. ABDOMEN: soft, nontender. EXTREMITIES:+2 edema. PERIPHERAL PULSES: equal. NEUROLOGIC: No gross deficits, AAO X 3 Objective Labs and Meds 04/16/22 06:11 04/16/22 06:11 Progress Note: A&P Assessment and plan (1) COPD exacerbation: Status: Acute (2) Acute CHF: Status: Acute (3) CAD (coronary artery disease): Status: Acute Plan [age] year female with COPD exacerbation, mild congestive heart failure and abdominal pain. She underwent endoscopy today. She underwent Lexiscan which showed nontransmural infarct in the apical anterior, adjustment apex and basal inferoseptal daniels. Was thought to be a suboptimal study. No t.i.d. was noticed. Overall she is improving from a respiratory standpoint. She has peripheral edema which I think is multifactorial and not purely from heart failure. She was on amlodipine and Lyrica as well as receiving steroids. There is no JVD or central signs of congestion. I think she can stay on oral diuretics. Please give her compression stockings. Stop amlodipine and Lyrica. Isosorbide mononitrate 30 mg once a day has been added to her regimen. She has allergy to thiazide diuretics and the lisinopril in the past. Lisinopril allergy was muscle weakness which is not a common issue and we need to get more information from the patient and if it appears to be not a true allergy reaction then probably ARB can be tried. Thank you for allowing me to participate in the care of your patient. Please feel free to contact me if you have any questions. Time Spent With Patient Time: Total time managing care of this patient today ____ minutes. Progress Note: Quality Stroke Does the patient have a stroke diagnosis?: No Procedures Date of Service Date of Service: 04/18/22
[2022-04-18] MEDS: Furosemide 40 MG TABLET PO (18:33)
[2022-04-18] MEDS: Acetaminophen 325 MG TABLET 650 MG PO (21:09)
[2022-04-18] MEDS: Melatonin 3 MG TABLET 6 MG PO (22:32)
[2022-04-18] MEDS: diazePAM 2 MG TABLET 1 MG PO (22:33)
[2022-04-19] VITALS (8 sets, daily range): BP systolic 109–152; BP diastolic 56–70; PULSE 58–76; RESP 18–20; TEMP 36.4–37.2; O2SAT 93–100; BMI 23.1
--- NOTE | 2022-04-19 | ECG_ITS ---
Test Reason : cp Blood Pressure : / mmHG Vent. Rate : 062 BPM Atrial Rate : 062 BPM P-R Int : 138 ms QRS Dur : 088 ms QT Int : 422 ms P-R-T Axes : 068 049 063 degrees QTc Int : 428 ms Sinus rhythm with occasional Premature ventricular complexes Possible Left atrial enlargement Borderline ECG When compared with ECG of 11-APR-2022 15:23, Premature ventricular complexes are now Present Referred By: Javid Massey Electronically Signed By:Ravinder Keith
[2022-04-19] MEDS: Omeprazole 40 MG CAPSULE.DR PO ×2 (05:45→16:20)
[2022-04-19 06:53] LABS: Hematocrit 39.2 % (37.0-47.0); Hemoglobin 13.5 g/dl (12.0-16.0); Mean Corpuscular HGB Conc 34.4 g/dl (31.0-35.0); Mean Corpuscular Hemoglobin 31.9 pg (27.0-33.0); Mean Corpuscular Volume 92.7 fL (80.0-98.0); Mean Platelet Volume 9.8 fL (9.4-12.3); Platelet Count 206 X10*3/uL (160-400); Red Blood Count 4.23 X10*6/uL (4.20-5.50); Red Cell Distribution Width 14.2 % (11.0-16.0); White Blood Count 10.5 X10*3/uL (4.8-10.8)
[2022-04-19 07:14] LABS: Anion Gap 10 (12-20); Blood Urea Nitrogen 17 mg/dL (9-16); Calcium 8.5 mg/dL (8.4-10.2); Carbon Dioxide 32 mmol/L (22-29); Chloride 96 mmol/L (96-108); Creatinine Clr Calc Pharmacy 54.4; Estimated Glomerular Filt Rate > 60; Glucose Random 83 mg/dL (60-115); Potassium 3.8 mmol/L (3.3-5.1); Sodium 134 mmol/L (135-145)
[2022-04-19] MEDS: atenoloL 50 MG TABLET PO (07:50)
[2022-04-19] MEDS: amLODIPine Besylate 5 MG TABLET PO (07:50)
[2022-04-19] MEDS: Fluconazole 100 MG TABLET 200 MG PO (07:50)
[2022-04-19] MEDS: Aspirin Enteric Coated 81 MG TABLET.DR PO (07:50)
[2022-04-19] MEDS: Azithromycin 500 MG TABLET PO (07:51)
[2022-04-19] MEDS: Atorvastatin Calcium 40 MG TABLET PO (07:51)
[2022-04-19] MEDS: Dicyclomine HCl 10 MG CAPSULE PO ×3 (07:51→16:20)
[2022-04-19] MEDS: Isosorbide Mononitrate 30 MG TAB.ER.24H PO ×2 (07:51→10:48)
[2022-04-19] MEDS: 0.9 % Sodium Chloride Flush 3 ML SYRINGE IVFLUSH ×3 (07:52→20:50)
[2022-04-19] MEDS: Multivitamin TABLET 1 TAB PO (07:52)
[2022-04-19] MEDS: Simethicone 80 MG TAB.CHEW PO ×4 (07:55→20:49)
[2022-04-19] MEDS: Fluticasone Propionate Nasal 16 GM SPRAY 2 SPRAY NOSTRIL-B (08:01)
[2022-04-19] MEDS: Losartan Potassium 25 MG TABLET PO (09:22)
[2022-04-19] MEDS: Furosemide 40 MG/4 ML VIAL IVPUSH (10:46)
[2022-04-19] MEDS: Nystatin Powder 15 GM BOTTLE 1 APPL TOPICAL ×2 (11:10→20:48)
[2022-04-19 11:35] LABS: COVID-19 Test Negative (Negative); IDNOW Serial# 16C4AD1C
--- NOTE | 2022-04-19 12:20 | P.DS_ITS ---
DS: Providers Provider Date of Service: 04/22/22 Date of admission: 04/08/22 01:16 Primary care physician: Donny Valenzuela MD Consults: 04/08/22 01:15 Consult to Cardiology Routine Consulting Provider: Wes Blanco Reason for consultation: Guidance in regards to volume status/chf Has provider been notified: No 04/09/22 10:37 Consult to Pulmonology Routine Consulting Provider: Abraham Jacobsen Reason for consultation: copd 04/11/22 09:25 Consult to Gastroenterology Routine Consulting Provider: Armand Bell Reason for consultation: abd pain, ?PUD, ?chronic pancreatitis DS: Diagnosis Discharge Diagnosis (1) COPD exacerbation: Status: Resolved (2) Acute CHF: Status: Resolved (3) Left groin pain: Status: Resolved (4) Vicky esophagitis: Status: Resolved (5) Diarrhea: Status: Resolved (6) Acute respiratory failure with hypoxia: Status: Resolved (7) Elevated brain natriuretic peptide (BNP) level: Status: Resolved (8) Abdominal pain: Status: Resolved DS: Summary Hospital Course Hospital Course: Admission note HPI ?76-year-old female with past medical history of CHF, COPD, CAD, peripheral vascular disease, AAA repair presents to the hospital with complaints of? abdominal pain that starts in the center of her abdomen, radiates to the back, patient reports that her symptoms started about her 2 weeks now worsening over the past few days.? Patient reports that she was discharged from [facility] about 2 weeks ago and her pain started right before discharge.? Patient reports that she was treated for CHF as well as COPD at [facility] On discharge she felt better but has? now had recurrent symptoms of shortness of breath with minimal exertion, fatigue and lower extremity swelling. ? patient reports no cough, and no increased sputum production. ?she reports the pain is diffuse across her abdomen, constant most of the time, 8/10, radiating to the back, certain movements? and exacerbated or improved pain.? She denies any fever, no chills, has burning sensation in the abdomen, reports no urinary symptoms.? On arrival to the ED patient noted to drop her O2 to? 83%? on ambulation to the bathroom, patient had to be brought back to her bed because she did not tolerate the walk.? Patient was placed on nasal cannula 2 L satting 93%.? Labs are significant for WBC count of 8.8, otherwise unremarkable, BNP of 206, troponin negative Left lower extremity venous duplex negative for any DVT Chest CT angiogram negative for PE, no acute findings within the chest abdomen or pelvis.? Emphysema, triple-vessel coronary calcifications, a 3.3 cm cyst in the right adnexa recommended pelvic ultrasound Hospital course The patient was admitted for acute hypoxic respiratory failure due to diastolic CHF and COPD exacerbation. Was treated primarily with IV Lasix, steroids and nebulizers with fair response over the course of hospital stay as the oxygen was weaned down slowly but she continued to need 2 L at bedtime and on occasions during the day. O2 sat goal is 92-94%. Evaluated by pulmonology team and cardiology team who did a stress test that did not show significant concerns over heart attack. She was cleared to do an EGD for evaluation of abdominal pain that was evaluated by sugar mill worker who reported Vicky esophagitis on EGD. Started her on Diflucan with a plan to finish total of 2 weeks, Bentyl and simethicone for irritability bowel syndrome as well. The patient was noted to have hyperkalemia and hyponatremia at time of presentation which is both resolved. Cardiology recommended to discontinue both amlodipine and Lyrica as they are likely the reasons behind her chronic lower extremity swelling. Amlodipine was discontinued and isosorbide mononitrate was added in its place but the patient began to complain of light headedness so it was changed to spironolactone and dose increased to 25 mg. . The morning dose of Lyrica was discontinued and daily evening does should be stopped in a week or so to prevent possible withdrawal symptoms. Evaluated by surgeon for reported LLQ pain. CT scan showed mild inguinal ring enhancement which is nonspecefic per dr Birmingham who recommended the patient to use pain meds PRN and avoid constipation with a plan to follow up as outpatient. The patient report increased level of anxiety. started on Sertraline as she reported she tolerated it well before. Atarax prn for anxiety. Discontinue amlodipine Stop Lyrica morning dose, continue the night dose for 1 week before stopping it Increase Lasix to 40 in the morning and 20 in the afternoon . assess fluid status in 1 week and adjust diuretics as needed. Duoneb scheduled for 1 more week Continue fluconazole as prescribed for Vicky infection Start isosorbide mononitrate 60 mg daily, monitor blood pressure for the next week and report readings to PCP Use Bentyl and simethicone as needed for abdominal pain and distension Oxycodone as needed for left groin pain, to follow with dr Birmingham as outpatient To repeat blood test next week Use incentive spirometry every 2 hours. To use 2 L of oxygen at bedtime and as needed during the day until full physical recovery Time Spent with Patient Time attestation: Total time managing care of this patient today ____ minutes. Discharge coordination time: Greater than 30 minutes Quality: Safe Use of Opioids Does Pt have an Active Cancer Diagnosis on the Problem List?: No Quality: Stroke Does the patient have a stroke diagnosis?: No Physical Exam Vital Signs: Vital Signs: Last Vital Signs Temp 97.9 F 04/19/22 11:38 Pulse 62 04/19/22 11:38 Resp 20 04/19/22 11:38 BP 118/67 04/19/22 11:38 Pulse Ox 93 04/19/22 11:38 O2 Del Method 04/19/22 11:38 O2 Flow Rate 1 04/19/22 07:45 BMI result Body Mass Index 23.1 Const: Other: Constitutional : Awake, interactive, not in distress Neck : Normal inspection, Supple Cardiovascular : RRR, no JVP, +1 lower extremity edema Respiratory : good bilateral air entry, no crackles, wheezes or rhonchi Gastrointestinal: soft, lax, Normal bowel sounds, Non tender Skin : Warm, Dry Neurological : Alert & oriented x3, No focal deficit DS: Data Data Completed and Pending Pending studies at discharge: Pending at discharge 04/18/22 11:33 Surgical [PTH] Routine Labs on day of discharge: Laboratory Results - last 24 hr 04/19/22 04/19/22 04/19/22 06:16 06:16 11:12 WBC 10.5 RBC 4.23 Hgb 13.5 Hct 39.2 MCV 92.7 MCH 31.9 MCHC 34.4 RDW 14.2 Plt Count 206 MPV 9.8 Absolute Nucleated RBC 0.000 Nucleated RBC % (auto) 0.0 Sodium 134 L Potassium 3.8 Chloride 96 Carbon Dioxide 32 H Anion Gap 10 L BUN 17 H Creatinine 0.75 Estim Creat Clear Calc 54.4 Estimated GFR > 60 Random Glucose 83 Calcium 8.5 COVID-19 (DICK) Negative COVID-19 Clin Com See Note Imaging Chest x-ray: Radiologist's impression: ITS Impressions Abdomen/Pelvis CT 04/07/22 22:23 IMPRESSION: * No pulmonary embolism. * No acute findings within the chest, abdomen or pelvis. * Moderate to severe emphysema. * Triple vessel coronary calcifications. * There is a 3.3 cm cyst in the right adnexa, below a 2.3 cm solid appearing structure which may represent the right ovary, although could represent an ovarian mass. Recommend nonemergent pelvic ultrasound for further evaluation VTE: negative Chest CTA 04/07/22 22:23 IMPRESSION: * No pulmonary embolism. * No acute findings within the chest, abdomen or pelvis. * Moderate to severe emphysema. * Triple vessel coronary calcifications. * There is a 3.3 cm cyst in the right adnexa, below a 2.3 cm solid appearing structure which may represent the right ovary, although could represent an ovarian mass. Recommend nonemergent pelvic ultrasound for further evaluation VTE: negative Venous Duplex 04/08/22 00:27 IMPRESSION: No DVT demonstrated in the left lower extremity. Pelvic/Transvag US 04/08/22 20:11 IMPRESSION: Status post hysterectomy and left oophorectomy. Two adjacent simple-appearing right adnexal cysts. Barium Swallow X-Ray 04/10/22 10:01 IMPRESSION: No esophageal stricture or mucosal abnormality identified. 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 Single episode of pharyngeal penetration without tracheal aspiration. Chest X-Ray 04/10/22 11:00 IMPRESSION: Chronic changes of the lungs without acute process. Myocardial Perfusion Scan Nuc Med 04/17/22 09:30 Impression: 1. 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 Suboptimal study. 2. Gated LVEF is 51% during stress and 64% during rest. 3. Transient ischemic dilatation not present. EKG component of the test reported separately. Discharge Plan Discharge Anticipated Discharge Date/Time: 04/19/22 10:21 Patient Disposition: [facility] Discharge Diagnosis: HEart failure exacerbation COPD exacerbation Esophageal candidiasis Referrals: [facility] [Other] - 1 Week Donny Valenzuela MD [Primary Care Provider] - 1 Week Discharge Medications: New furosemide 40 mg Tablet 40 mg PO DAILY Qty: 30 0RF Protocol: Hold for SBP< HOLD for SBP < : 90 fluconazole 100 mg Tablet 200 mg PO DAILY 14 Days Qty: 28 0RF nystatin 100,000 unit/gram Powder 1 appl topical BID 7 Days Qty: 30 0RF Protocol: Apply to: Apply to: affected areas dicyclomine 10 mg Capsule 10 mg PO TIDAC PRN (Reason: Abdominal Discomfort) Qty: 60 2RF simethicone [Gas Relief (simethicone)] 80 mg Tablet,Chewable 80 mg PO QIDWMHS PRN (Reason: Abdominal Distention) Qty: 60 2RF ipratropium-albuterol 0.5 mg-3 mg(2.5 mg base)/3 mL solution for nebulization 3 ml inhalation TID 7 Days Qty: 90 0RF spironolactone 25 mg Tablet 25 mg PO DAILY Qty: 30 0RF Protocol: Hold for SBP< HOLD for SBP < : 90 oxycodone 5 mg Tablet 5 mg PO Q6H PRN (Reason: Pain, Severe (Pain Scale 7-10)) Qty: 20 0RF Rx Instructions: Partial Fill upon patient request. polyethylene glycol 3350 17 gram/dose powder 17 g PO DAILY Qty: 119 0RF sertraline 25 mg Tablet 25 mg PO DAILY Qty: 30 0RF hydroxyzine HCl 25 mg Tablet 25 mg PO Q8H PRN (Reason: Anxiety/Restlessness) Qty: 30 0RF Continued albuterol sulfate 2.5 mg /3 mL (0.083 %) solution for nebulization 2 vial inhalation Q4H PRN (Reason: wheezing) atenolol 50 mg tablet 1 tab PO DAILY atorvastatin 40 mg tablet 1 tab PO DAILY omeprazole 20 mg capsule,delayed release(DR/EC) 1 cap PO DAILY@0630 fluticasone propionate 50 mcg/actuation spray,suspension 2 spray intranasal DAILY diazepam 5 mg tablet 1 tab PO BEDTIME PRN (Reason: restless legs) aspirin 81 mg Tablet,Delayed Release (Dr/Ec) 81 mg PO DAILY vitamin E 268 mg (400 unit) Capsule 268 mg PO DAILY calcium carbonate-vitamin D3 600 mg-5 mcg (200 unit) Tablet 1 tab PO DAILY multivitamin Tablet 1 tab PO DAILY acetaminophen 500 mg Tablet 1,000 mg PO Q6H PRN (Reason: Back Pain) ascorbic acid (vitamin C) [Vitamin C] 500 mg Tablet 500 mg PO DAILY albuterol sulfate 90 mcg/actuation HFA aerosol inhaler 2 puff INHALATION Q4H PRN (Reason: wheezing) pregabalin 50 mg capsule 1 cap PO BEDTIME melatonin 5 mg Tablet 5 mg PO BEDTIME PRN (Reason: Insomnia) Changed furosemide 20 mg tablet 20 mg PO DAILY@1700 Qty: 30 0RF Trelegy Ellipta 100-62.5-25 mcg blister with device 1 ea INHALATION DAILY Qty: 60 2RF Discontinued amlodipine 5 mg tablet 1 tab PO DAILY pregabalin 75 mg capsule 1 cap PO DAILY Discharge Orders: Discharge Order (Routine); Ordered 04/22/22 Ordered By: Javid Massey Diet: Low salt diet Activity on Discharge: As tolerated Stand Alone Forms: Patient Portal Discharge page Other Ambulatory Orders: Basic Metabolic Panel (Routine) Timeframe: 3 Days Facility: [facility] - Location: Laboratory Ordered By: Javid Massey Care Plan Goals: Read below Health Concerns: Read below Plan of Treatment: Read below Assessment: You were admitted to the hospital for evaluation of abdominal pain. Found to have low oxygen saturation as a result of heart failure and COPD exacerbations. Treated with IV diuretics, steroids along with bronchodilator nebulizers with good response over the course of hospital stay as you were evaluated by electric power machine operator who did a stress test Evaluated by sugar mill worker with endoscopy which showed Vicky esophagitis. Started treatment with Diflucan to finish total of 2 weeks of treatment. Amlodipine was discontinued for edema. Started on isosorbide mononitrate for blood pressure control. Discontinue amlodipine Stop Lyrica morning dose, continue the night dose for 1 week before stopping it Increase Lasix to 40 in the morning and 20 in the afternoon Duoneb scheduled for 1 more week Continue fluconazole as prescribed for Vicky infection Start isosorbide mononitrate 60 mg daily, monitor blood pressure for the next week and report readings to PCP Use Bentyl and simethicone as needed for abdominal pain and distension Oxycodone as needed for left groin pain, to follow with dr Birmingham as outpatient Start Sertraline 25 mg daily, to follow with PCP in 2 weeks. Atarax as needed for anxiety attacks To repeat blood test next week Use incentive spirometry every 2 hours. To use 2 L of oxygen at bedtime and as needed during the day until full physical recovery Discharge Date/Time: 04/22/22 16:00
--- NOTE | 2022-04-19 12:50 | P.PNIM_ITS ---
Subjective Subjective Date of Service: 04/19/22 Interval History: the patient was seen and evaluated this morning Dropped blood pressure and felt lightheadedness and unsteadiness Multiple episodes of diarrhea Lower extremity swelling mildly better No reported other overnight events. Review of Systems Review of Systems: Yes all other systems are reviewed and are negative Physical Exam 2 Vital Signs: Vital Signs: Last Vital Signs Temp 97.9 F 04/19/22 11:38 Pulse 62 04/19/22 11:38 Resp 20 04/19/22 11:38 BP 118/67 04/19/22 11:38 Pulse Ox 93 04/19/22 11:38 O2 Del Method 04/19/22 11:38 O2 Flow Rate 1 04/19/22 07:45 BMI result Body Mass Index 23.1 Const: Other: Constitutional : Awake, interactive, not in distress Neck : Normal inspection, Supple Cardiovascular : RRR, no JVP, +1 lower extremity edema Respiratory : good bilateral air entry, no crackles, wheezes or rhonchi Gastrointestinal: soft, lax, Normal bowel sounds, Non tender Skin : Warm, Dry Neurological : Alert & oriented x3, No focal deficit Objective Data Active Medications Acetaminophen (Acetaminophen 325 Mg Tablet) 650 mg PO Q6H PRN PRN Reason: Pain, Mild (Pain Scale 1-3) Last Admin: 04/18/22 21:09 Dose: 650 mg Documented By: DEMETRI Albuterol Sulfate (Albuterol Sulfate (0.083%) 2.5 Mg/3 Ml Vial.Neb) 2.5 mg INHALE Q4H PRN PRN Reason: Shortness of Breath/Wheezing Aspirin (Aspirin Enteric Coated 81 Mg Tablet.) 81 mg PO DAILY [facility] Last Admin: 04/19/22 07:50 Dose: 81 mg Documented By: LENI Atenolol (Atenolol 50 Mg Tablet) 50 mg PO DAILY [facility]; Protocol Last Admin: 04/19/22 07:50 Dose: 50 mg Documented By: LENI Atorvastatin Calcium (Atorvastatin Calcium 40 Mg Tablet) 40 mg PO DAILY [facility] Last Admin: 04/19/22 07:51 Dose: 40 mg Documented By: LENI Diazepam (Diazepam 2 Mg Tablet) 1 mg PO BEDTIME PRN PRN Reason: Restlessness Last Admin: 04/18/22 22:33 Dose: 1 mg Documented By: DEMETRI Dicyclomine HCl (Dicyclomine Hcl 10 Mg Capsule) 10 mg PO TIDAC [facility] Last Admin: 04/19/22 10:51 Dose: 10 mg Documented By: LENI Docusate Sodium (Docusate Sodium 100 Mg Capsule) 100 mg PO DAILY PRN PRN Reason: Constipation Last Admin: 04/11/22 10:04 Dose: 100 mg Documented By: LENI Enoxaparin Sodium (Enoxaparin Sodium 40 Mg/0.4 Ml Syringe) 40 mg SUBCUT DAILY@0600 [facility] Last Admin: 04/17/22 07:49 Dose: Not Given Documented By: MERRY Non-Admin Reason: Patient Asleep Fluconazole (Fluconazole 100 Mg Tablet) 200 mg PO DAILY [facility] Last Admin: 04/19/22 07:50 Dose: 200 mg Documented By: LENI Fluticasone Propionate (Fluticasone Propionate Nasal 16 Gm [place]) 2 spray NOSTRIL-B DAILY [facility] Last Admin: 04/19/22 08:01 Dose: 2 spray Documented By: LENI Furosemide (Furosemide 40 Mg Tablet) 40 mg PO BID@0900,1800 [facility]; Protocol Guaifenesin (Guaifenesin 100 Mg/5 Ml Liquid) 5 ml PO Q6H PRN PRN Reason: Cough Last Admin: 04/15/22 13:08 Dose: 5 ml Documented By: JOSE ROBERTO Isosorbide Mononitrate (Isosorbide Mononitrate 60 Mg Tab.Er.24h) 60 mg PO DAILY [facility]; Protocol Losartan Potassium (Losartan Potassium 25 Mg Tablet) 25 mg PO DAILY [facility]; Alejandro col Last Admin: 04/19/22 09:22 Dose: 25 mg Documented By: LENI Melatonin (Melatonin 3 Mg Tablet) 6 mg PO BEDTIME PRN PRN Reason: Sleep Last Admin: 04/18/22 22:32 Dose: 6 mg Documented By: DEMETRI Melatonin (Melatonin 3 Mg Tablet) 6 mg PO BEDTIME PRN PRN Reason: Insomnia Multivitamins/Vitamin C (Multivitamin Tablet) 1 tab PO DAILY [facility] Last Admin: 04/19/22 07:52 Dose: 1 tab Documented By: LENI Pt Own (Fluticasone- Umeclidin-Vilanter [ Trelegy Ellipta] 100 -62.5-25 Mcg 1 puff INHALE RDAILY [facility] Last Admin: 04/19/22 08:00 Dose: 1 puff Documented By: LENI Nystatin (Nystatin Powder 15 Gm Bottle) 1 appl TOPICAL BID [facility]; Protocol Last Admin: 04/19/22 11:10 Dose: 1 appl Documented By: LENI Omeprazole (Omeprazole 40 Mg Capsule.Dr) 40 mg PO BID@0630,1630 [facility] Last Admin: 04/19/22 05:45 Dose: 40 mg Documented By: DEMETRI Ondansetron HCl (Ondansetron Hcl 4 Mg/2 Ml Vial) 4 mg IVPUSH Q8H PRN PRN Reason: Nausea and Vomiting Last Admin: 04/09/22 13:04 Dose: 4 mg Documented By: DUNIAORRMelina Oxycodone HCl (Oxycodone Hcl Immed Release 5 Mg Tablet) 5 mg PO Q4H PRN PRN Reason: Pain, Severe (Pain Scale 7-10) Last Admin: 04/18/22 21:09 Dose: 5 mg Documented By: DEMETRI Pharmacy Consult (Consult Rx Perform Med Rec) 1 each MISCELLANE ONCE PRN PRN Reason: Consult order Pregabalin (Pregabalin 75 Mg Capsule) 75 mg PO BEDTIME [facility] Simethicone (Simethicone 80 Mg Tab.Chew) 80 mg PO QIDWMHS [facility] Last Admin: 04/19/22 10:51 Dose: 80 mg Documented By: LENI Sodium Chloride (0.9 % Sodium Chloride Flush 3 Ml Syringe) 3 ml IVFLUSH QSHIFT [facility] Last Admin: 04/19/22 07:52 Dose: 3 ml Documented By: LENI Labs 04/19/22 06:16 04/19/22 06:16 Labs: Laboratory Results - last 24 hr 04/19/22 04/19/22 04/19/22 06:16 06:16 11:12 MCV 92.7 MCH 31.9 MCHC 34.4 RDW 14.2 Plt Count 206 MPV 9.8 Absolute Nucleated RBC 0.000 Nucleated RBC % (auto) 0.0 Anion Gap 10 L Estim Creat Clear Calc 54.4 Estimated GFR > 60 Random Glucose 83 Calcium 8.5 COVID-19 (DICK) Negative COVID-19 Clin Com See Note Assessment and Plan (1) COPD exacerbation: Status: Acute (2) Acute CHF: Status: Acute (3) Acute respiratory failure with hypoxia: Status: Acute (4) Diarrhea: Status: Acute Plan 76-year-old female with past medical history of COPD, CHF presents to the hospital with complaints of abdominal pain found to be hypoxic acute hypoxic respiratory failure due to copd with acute decopmensation and acute on chronic diastolic chf weaned off O2 pulm input appreciated Discontinue prednisone, nebs Discontinue azithro, give Lasix IV, increase PO dosage upon discharge cardio input appreciated, to do stress test: pending readings but overall staple and clear to do EGD Diarrhea Check C diff If negative to use Imodium Postural hypotension Received multiple new BP meds this morning of losartan and isosorbide mononitrate DC losartan for now Monitor for the need of 60 VS 30 of isosorbide mononitrate To give fluid AF continue to run low hyponatermia monitor, mild hyperkalemia resolved abdominal pain gi appreciated, IBS vs pud Continue bentyl, Simethicone EGD showed Vciky esophagitis, likely 2/2 steroid usage continue ppi Continue Diflucan day 2 hypertension atenolol holding amlodipine for low normal bp, now with some elevated readings, but will continue to monitor off amlodipine CAD asa, statin plan for cath when resp status improved dvt prophylaxis - lovenox reason for continued hospitalization: Evaluation of diarrhea and postural hypotension pending safe discharge plan Time Spent With Patient Time: Total time managing care of this patient today ____ minutes. Quality Stroke Does the patient have a stroke diagnosis?: No VTE Prior VTE?: No VTE Risk Level:: Medical - moderate - high VTE Device Contraindication: Treatment Not Indicated VTE Drug Contraindication: N/A - Med Ordered
[2022-04-19] MEDS: 0.9 % Sodium Chloride 500 ML IV (14:30)
[2022-04-19 15:26] LABS: Anion Gap 15 (12-20); Blood Urea Nitrogen 17 mg/dL (9-16); Calcium 8.8 mg/dL (8.4-10.2); Carbon Dioxide 30 mmol/L (22-29); Chloride 91 mmol/L (96-108); Creatinine Clr Calc Pharmacy 46.3; Estimated Glomerular Filt Rate > 60; Glucose Random 89 mg/dL (60-115); Magnesium 1.7 mg/dL (1.6-2.6); Potassium 3.9 mmol/L (3.3-5.1); Sodium 132 mmol/L (135-145)
--- NOTE | 2022-04-19 18:50 | HO.POSTANES ---
Post Anesthesia Evaluation Post Anesthesia Evaluation Vital Signs: Vital Signs Temp Pulse Resp BP Pulse Ox O2 Del Method O2 Flow Rate 04/19/22 15:28 98.0 F 62 111/66 96 Nasal Cannula 2 04/19/22 11:38 97.9 F 62 20 118/67 93 Room Air 04/19/22 11:06 62 118/67 04/19/22 08:13 152/70 H 04/19/22 07:45 97.6 F 70 20 97 Nasal Cannula 1 Anesthesia: Monitored Mental Status: Awake Pain Control: Satisfactory Nausea/Vomiting: None Hydration: Adequate Anesthesia-Related Issues: No Anes. Related Issues
[2022-04-20 03:18] VITALS: BP 122/76; PULSE 72; RESP 20; TEMP 36.6; O2SAT 96
[2022-04-20] MEDS: Omeprazole 40 MG CAPSULE.DR PO ×2 (05:54→15:58)
[2022-04-20 06:00] VITALS: BMI 22.8
[2022-04-20 07:22] LABS: Anion Gap 10 (12-20); Blood Urea Nitrogen 12 mg/dL (9-16); Calcium 8.6 mg/dL (8.4-10.2); Carbon Dioxide 31 mmol/L (22-29); Chloride 98 mmol/L (96-108); Estimated Glomerular Filt Rate > 60; Glucose Random 80 mg/dL (60-115); Potassium 3.8 mmol/L (3.3-5.1); Sodium 135 mmol/L (135-145)
[2022-04-20 07:33] VITALS: BP 150/78; PULSE 71; RESP 20; TEMP 36.4; O2SAT 92
[2022-04-20] MEDS: Simethicone 80 MG TAB.CHEW PO ×4 (09:00→20:22)
[2022-04-20] MEDS: Dicyclomine HCl 10 MG CAPSULE PO ×3 (09:00→15:58)
[2022-04-20] MEDS: Aspirin Enteric Coated 81 MG TABLET.DR PO (09:00)
[2022-04-20] MEDS: Multivitamin TABLET 1 TAB PO (09:00)
[2022-04-20] MEDS: Isosorbide Mononitrate 30 MG TAB.ER.24H PO (09:01)
[2022-04-20] MEDS: Atorvastatin Calcium 40 MG TABLET PO (09:01)
[2022-04-20] MEDS: Furosemide 40 MG TABLET PO (09:01)
[2022-04-20] MEDS: atenoloL 50 MG TABLET PO (09:01)
[2022-04-20] MEDS: Fluconazole 100 MG TABLET 200 MG PO (09:02)
[2022-04-20] MEDS: 0.9 % Sodium Chloride Flush 3 ML SYRINGE IVFLUSH ×3 (09:02→20:22)
[2022-04-20] MEDS: Fluticasone Propionate Nasal 16 GM SPRAY 2 SPRAY NOSTRIL-B (09:07)
[2022-04-20] MEDS: Nystatin Powder 15 GM BOTTLE 1 APPL TOPICAL (09:07)
[2022-04-20] MEDS: Acetaminophen 325 MG TABLET 650 MG PO (09:49)
[2022-04-20 11:22] VITALS: BP 128/63; PULSE 56; RESP 20; TEMP 36.7; O2SAT 95
--- NOTE | 2022-04-20 11:55 | P.PNIM_ITS ---
Subjective Subjective Date of Service: 04/20/22 Interval History: the patient was seen and evaluated this morning Reporting left lower quadrant abdominal pain and feeling of chills Blood pressure has improved No more episodes of diarrhea No reported other overnight events. Review of Systems Review of Systems: Yes all other systems are reviewed and are negative Physical Exam Vital Signs: Vital Signs: Last Vital Signs Temp 98.1 F 04/20/22 11:22 Pulse 56 04/20/22 11:22 Resp 20 04/20/22 11:22 BP 128/63 04/20/22 11:22 Pulse Ox 95 04/20/22 11:22 O2 Del Method 04/20/22 11:22 O2 Flow Rate 2 04/20/22 07:33 BMI result Body Mass Index 22.8 Const: Other: Constitutional : Awake, interactive, not in distress Neck : Normal inspection, Supple Cardiovascular : RRR, no JVP, +1 lower extremity edema Respiratory : good bilateral air entry, no crackles, wheezes or rhonchi Gastrointestinal: soft, lax, Normal bowel sounds, left lower quadrant tenderness, no surgical signs Skin : Warm, Dry Neurological : Alert & oriented x3, No focal deficit Objective Data Active Medications Acetaminophen (Acetaminophen 325 Mg Tablet) 650 mg PO Q6H PRN PRN Reason: Pain, Mild (Pain Scale 1-3) Last Admin: 04/20/22 09:49 Dose: 650 mg Documented By: LENI Albuterol Sulfate (Albuterol Sulfate (0.083%) 2.5 Mg/3 Ml Vial.Neb) 2.5 mg INHALE Q4H PRN PRN Reason: Shortness of Breath/Wheezing Aspirin (Aspirin Enteric Coated 81 Mg Tablet.) 81 mg PO DAILY [facility] Last Admin: 04/20/22 09:00 Dose: 81 mg Documented By: LENI Atenolol (Atenolol 50 Mg Tablet) 50 mg PO DAILY [facility]; Protocol Last Admin: 04/20/22 09:01 Dose: 50 mg Documented By: LENI Atorvastatin Calcium (Atorvastatin Calcium 40 Mg Tablet) 40 mg PO DAILY [facility] Last Admin: 04/20/22 09:01 Dose: 40 mg Documented By: LENI Diazepam (Diazepam 2 Mg Tablet) 1 mg PO BEDTIME PRN PRN Reason: Restlessness Last Admin: 04/18/22 22:33 Dose: 1 mg Documented By: DEMETRI Dicyclomine HCl (Dicyclomine Hcl 10 Mg Capsule) 10 mg PO TIDAC [facility] Last Admin: 04/20/22 09:00 Dose: 10 mg Documented By: LENI Docusate Sodium (Docusate Sodium 100 Mg Capsule) 100 mg PO DAILY PRN PRN Reason: Constipation Last Admin: 04/11/22 10:04 Dose: 100 mg Documented By: LENI Enoxaparin Sodium (Enoxaparin Sodium 40 Mg/0.4 Ml Syringe) 40 mg SUBCUT DAILY@0600 [facility] Last Admin: 04/17/22 07:49 Dose: Not Given Documented By: MERRY Non-Admin Reason: Patient Asleep Fluconazole (Fluconazole 100 Mg Tablet) 200 mg PO DAILY [facility] Last Admin: 04/20/22 09:02 Dose: 200 mg Documented By: LENI Fluticasone Propionate (Fluticasone Propionate Nasal 16 Gm [place]) 2 spray NOSTRIL-B DAILY [facility] Last Admin: 04/20/22 09:07 Dose: 2 spray Documented By: LENI Furosemide (Furosemide 40 Mg Tablet) 40 mg PO DAILY [facility]; Protocol Last Admin: 04/20/22 09:01 Dose: 40 mg Documented By: LENI Guaifenesin (Guaifenesin 100 Mg/5 Ml Liquid) 5 ml PO Q6H PRN PRN Reason: Cough Last Admin: 04/15/22 13:08 Dose: 5 ml Documented By: JOSE ROBERTO Isosorbide Mononitrate (Isosorbide Mononitrate 30 Mg Tab.Er.24h) 30 mg PO DAILY [facility]; Protocol Last Admin: 04/20/22 09:01 Dose: 30 mg Documented By: LENI Melatonin (Melatonin 3 Mg Tablet) 6 mg PO BEDTIME PRN PRN Reason: Sleep Last Admin: 04/18/22 22:32 Dose: 6 mg Documented By: DEMETRI Melatonin (Melatonin 3 Mg Tablet) 6 mg PO BEDTIME PRN PRN Reason: Insomnia Multivitamins/Vitamin C (Multivitamin Tablet) 1 tab PO DAILY [facility] Last Admin: 04/20/22 09:00 Dose: 1 tab Documented By: LENI Pt Own (Fluticasone- Umeclidin-Vilanter [ Trelegy Ellipta] 100 -62.5-25 Mcg 1 puff INHALE RDAILY [facility] Last Admin: 04/20/22 09:07 Dose: 1 puff Documented By: LENI Nystatin (Nystatin Powder 15 Gm Bottle) 1 appl TOPICAL BID [facility]; Protocol Last Admin: 04/20/22 09:07 Dose: 1 appl Documented By: LENI Omeprazole (Omeprazole 40 Mg Capsule.Dr) 40 mg PO BID@0630,1630 [facility] Last Admin: 04/20/22 05:54 Dose: 40 mg Documented By: ATIF Ondansetron HCl (Ondansetron Hcl 4 Mg/2 Ml Vial) 4 mg IVPUSH Q8H PRN PRN Reason: Nausea and Vomiting Last Admin: 04/09/22 13:04 Dose: 4 mg Documented By: LISA Oxycodone HCl (Oxycodone Hcl Immed Release 5 Mg Tablet) 5 mg PO Q4H PRN PRN Reason: Pain, Severe (Pain Scale 7-10) Last Admin: 04/18/22 21:09 Dose: 5 mg Documented By: DEMETRI Pharmacy Consult (Consult Rx Perform Med Rec) 1 each MISCELLANE ONCE PRN PRN Reason: Consult order Pregabalin (Pregabalin 75 Mg Capsule) 75 mg PO BEDTIME [facility] Last Admin: 04/19/22 20:49 Dose: Not Given Documented By: MARCELLA Non-Admin Reason: Patient Refused Simethicone (Simethicone 80 Mg Tab.Chew) 80 mg PO QIDWMHS [facility] Last Admin: 04/20/22 09:00 Dose: 80 mg Documented By: LENI Sodium Chloride (0.9 % Sodium Chloride Flush 3 Ml Syringe) 3 ml IVFLUSH QSHIFT [facility] Last Admin: 04/20/22 09:02 Dose: 3 ml Documented By: LENI Labs 04/19/22 06:16 04/20/22 06:09 Labs: Laboratory Results - last 24 hr 04/19/22 04/20/22 14:51 06:09 Anion Gap 15 10 L Estim Creat Clear Calc 46.3 60.0 Estimated GFR > 60 > 60 Random Glucose 89 80 Calcium 8.8 8.6 Magnesium 1.7 Assessment and Plan (1) COPD exacerbation: Status: Acute (2) Acute CHF: Status: Acute (3) Bilateral lower extremity edema: Status: Acute (4) Abdominal pain: Status: Acute Plan 76-year-old female with past medical history of COPD, CHF presents to the hospital with complaints of abdominal pain found to be hypoxic acute hypoxic respiratory failure due to copd with acute decopmensation and acute on chronic diastolic chf weaned off O2 pulm input appreciated Discontinue prednisone, nebs Discontinue azithro, P.o. Lasix cardio input appreciated, stress test done, showed nontransmural infarct in the apical anterior, adjustment apex and basal inferoseptal daniels.? Was thought to be a suboptimal study.? Left lower quadrant pain Diarrhea resolved Could not sent C diff Get CT abdomen with contrast If negative to use Imodium Postural hypotension Resolved Secondary to multiple new BP meds DC losartan for now 30 of isosorbide mononitrate hyponatermia monitor, mild hyperkalemia resolved Generalized abdominal pain gi appreciated, Continue bentyl, Simethicone EGD showed Vicky esophagitis, likely 2/2 steroid usage continue ppi Continue Diflucan day 3 hypertension atenolol holding amlodipine for low normal bp, now with some elevated readings, but will continue to monitor off amlodipine CAD asa, statin plan for cath when resp status improved dvt prophylaxis - lovenox reason for continued hospitalization: Evaluation of Abd pain pending CT scan and safe discharge plan Time Spent With Patient Time: Total time managing care of this patient today ____ minutes. Quality Stroke Does the patient have a stroke diagnosis?: No VTE Prior VTE?: No VTE Risk Level:: Medical - moderate - high VTE Device Contraindication: Treatment Not Indicated VTE Drug Contraindication: N/A - Med Ordered
[2022-04-20] MEDS: LORazepam 0.5 MG TABLET PO (12:14)
[2022-04-20] MEDS: iohexoL 350 MG/ML 100 ML INFUS..BTL IV (13:28)
[2022-04-20 15:43] VITALS: BP 101/62; PULSE 60; RESP 19; TEMP 36.6; O2SAT 85
[2022-04-20] MEDS: oxyCODONE HCl Immed Release 5 MG TABLET PO ×2 (16:02→20:21)
[2022-04-20 16:09] VITALS: O2SAT 95
[2022-04-20 19:24] LABS: Erythrocyte Sedimentation Rate 2 MM/HR (0-20)
[2022-04-20 20:00] VITALS: BP 110/62; PULSE 58; RESP 18; TEMP 36.8; O2SAT 98
[2022-04-21] VITALS (8 sets, daily range): BP systolic 122–150; BP diastolic 61–96; PULSE 59–71; RESP 18–20; TEMP 36.1–36.7; O2SAT 95–98; BMI 25.6
[2022-04-21] MEDS: Omeprazole 40 MG CAPSULE.DR PO ×2 (06:10→16:07)
[2022-04-21 06:39] LABS: Anion Gap 10 (12-20); Blood Urea Nitrogen 11 mg/dL (9-16); Calcium 8.6 mg/dL (8.4-10.2); Carbon Dioxide 29 mmol/L (22-29); Chloride 100 mmol/L (96-108); Creatinine Clr Calc Pharmacy 65.1; Estimated Glomerular Filt Rate > 60; Glucose Random 87 mg/dL (60-115); Sodium 135 mmol/L (135-145)
[2022-04-21] MEDS: Furosemide 40 MG TABLET PO (09:15)
[2022-04-21] MEDS: Atorvastatin Calcium 40 MG TABLET PO (09:15)
[2022-04-21] MEDS: Multivitamin TABLET 1 TAB PO (09:16)
[2022-04-21] MEDS: Fluconazole 100 MG TABLET 200 MG PO (09:16)
[2022-04-21] MEDS: Simethicone 80 MG TAB.CHEW PO ×4 (09:16→21:28)
[2022-04-21] MEDS: atenoloL 50 MG TABLET PO (09:17)
[2022-04-21] MEDS: Aspirin Enteric Coated 81 MG TABLET.DR PO (09:17)
[2022-04-21] MEDS: Fluticasone Propionate Nasal 16 GM SPRAY 2 SPRAY NOSTRIL-B (09:18)
[2022-04-21] MEDS: Nystatin Powder 15 GM BOTTLE 1 APPL TOPICAL ×2 (09:18→21:33)
[2022-04-21] MEDS: 0.9 % Sodium Chloride Flush 3 ML SYRINGE IVFLUSH ×3 (09:19→22:40)
--- NOTE | 2022-04-21 10:47 | MHC.CM.PN ---
pt to be dcd today at 2 to [place] ana jamil notified of dc
[2022-04-21] MEDS: Spironolactone 25 MG TABLET 12.5 MG PO (11:51)
[2022-04-21] MEDS: oxyCODONE HCl Immed Release 5 MG TABLET PO ×3 (11:59→21:28)
--- NOTE | 2022-04-21 12:04 | P.CONGS_ITS ---
History of Present Illness Consult details Consult date: 04/21/22 Narrative: 76-year-old female referred for abdominal pain. She describes this as mostly on the left groin area. She also says she has had some pain on the epigastric area on and off. She seems to have had this issues form several months already. She has had no nausea or vomiting. She denies any problems with bowel movements. She has been here in the hospital in [place] since April because of exacerbationcof her COPD. She does describe having stents placed in the past for abdominal aortic ane urysm. She also has had repair of both the left and the right inguinal hernias according to the daughter many years ago. She had a CAT scan done yesterday showing a small fluid collection on the left groin and what appears to be a cyst in the right adnexa which is not new. Review of Systems Constitutional: Constitutional: Denies chills and Denies fever(s) Cardiovascular: Cardiovascular: Denies chest pain, Denies dyspnea and Reports dyspnea on exertion Respiratory: Respiratory: Denies cough, Denies dyspnea and Reports dyspnea on exertion Gastrointestinal: Gastrointestinal: Denies hematochezia and Denies change in bowel habits Genitourinary: Genitourinary: Denies hematuria Musculoskeletal: Musculoskeletal: Denies back pain and Denies limited range of motion Neurologic: Denies focal weakness and Denies convulsions Psychiatric: Psychiatric: Denies depression and Denies mood swings [facility] Past Medical History Medical History (Updated 04/22/22 @ 10:45 by Christo Birmingham MD) CAD (coronary artery disease) History of CHF (congestive heart failure) History of COPD Hypertension Left groin pain Family History Family History (Updated 04/08/22 @ 09:55 by Seun Brar MD) Mother CHF (congestive heart failure) ICD (implantable cardioverter-defibrillator) in place Father Heart disease Other History of CAD (coronary artery disease) Surgical History Surgical History S/P AAA repair Social History Social History Household Members: None Housing: House Do you presently have visiting nurse or other home services: No Alcohol intake: never Patient Tobacco Use Status: Former Tobacco user Quit Date: 6 years Tobacco use type: Cigarette e-Cigarette/Vaping Use: Never Used Second Hand Smoke Exposure: No service: No Meds Allergies Allergy/AdvReac Type Severity Reaction Status Date / Time lisinopril [LISINOPRIL] Allergy Intermediate MUSCLE Verified 04/07/22 20:49 WEAKNESS duloxetine Allergy Unknown Verified 04/07/22 21:08 hydrochlorothiazide AdvReac Unknown Verified 04/07/22 21:07 Active Medications: Current Medications Acetaminophen (Acetaminophen 325 Mg Tablet) 650 mg PO Q6H PRN PRN Reason: Pain, Mild (Pain Scale 1-3) Last Admin: 04/20/22 09:49 Dose: 650 mg Albuterol Sulfate (Albuterol Sulfate (0.083%) 2.5 Mg/3 Ml Vial.Neb) 2.5 mg INHALE Q4H PRN PRN Reason: Shortness of Breath/Wheezing Aspirin (Aspirin Enteric Coated 81 Mg Tablet.Dr) 81 mg PO DAILY [facility] Last Admin: 04/21/22 09:17 Dose: 81 mg Atenolol (Atenolol 50 Mg Tablet) 50 mg PO DAILY [facility]; Protocol Last Admin: 04/21/22 09:17 Dose: 50 mg Atorvastatin Calcium (Atorvastatin Calcium 40 Mg Tablet) 40 mg PO DAILY [facility] Last Admin: 04/21/22 09:15 Dose: 40 mg Albuterol Sulfate 2.5 mg/ (Ipratropium [place] 0.5 mg) 0 mg INHALE RQ6H WHILE AWAKE [facility] Last Admin: 04/21/22 11:07 Dose: Not Given Diazepam (Diazepam 2 Mg Tablet) 1 mg PO BEDTIME PRN PRN Reason: Restlessness Last Admin: 04/18/22 22:33 Dose: 1 mg Dicyclomine HCl (Dicyclomine Hcl 10 Mg Capsule) 10 mg PO TIDAC PRN PRN Reason: Abdominal pain Docusate Sodium (Docusate Sodium 100 Mg Capsule) 100 mg PO DAILY PRN PRN Reason: Constipation Last Admin: 04/11/22 10:04 Dose: 100 mg Enoxaparin Sodium (Enoxaparin Sodium 40 Mg/0.4 Ml Syringe) 40 mg SUBCUT DAILY@0600 [facility] Last Admin: 04/17/22 07:49 Dose: Not Given Fluconazole (Fluconazole 100 Mg Tablet) 200 mg PO DAILY [facility] Last Admin: 04/21/22 09:16 Dose: 200 mg Fluticasone Propionate (Fluticasone Propionate Nasal 16 Gm [place]) 2 spray NOSTRIL-B DAILY [facility] Last Admin: 04/21/22 09:18 Dose: 2 spray Furosemide (Furosemide 40 Mg Tablet) 40 mg PO DAILY [facility]; Protocol Last Admin: 04/21/22 09:15 Dose: 40 mg Guaifenesin (Guaifenesin 100 Mg/5 Ml Liquid) 5 ml PO Q6H PRN PRN Reason: Cough Last Admin: 04/15/22 13:08 Dose: 5 ml Isosorbide Mononitrate (Isosorbide Mononitrate 30 Mg Tab.Er.24h) 30 mg PO DAILY [facility]; Protocol Last Admin: 04/20/22 09:01 Dose: 30 mg Melatonin (Melatonin 3 Mg Tablet) 6 mg PO BEDTIME PRN PRN Reason: Sleep Last Admin: 04/18/22 22:32 Dose: 6 mg Melatonin (Melatonin 3 Mg Tablet) 6 mg PO BEDTIME PRN PRN Reason: Insomnia Multivitamins/Vitamin C (Multivitamin Tablet) 1 tab PO DAILY [facility] Last Admin: 04/21/22 09:16 Dose: 1 tab Pt Own (Fluticasone- Umeclidin-Vilanter [ Trelegy Ellipta] 100 -62.5-25 Mcg 1 puff INHALE RDAILY [facility] Last Admin: 04/21/22 09:18 Dose: 1 puff Nystatin (Nystatin Powder 15 Gm Bottle) 1 appl TOPICAL BID [facility]; Protocol Last Admin: 04/21/22 09:18 Dose: 1 appl Omeprazole (Omeprazole 40 Mg Capsule.Dr) 40 mg PO BID@0630,1630 [facility] Last Admin: 04/21/22 06:10 Dose: 40 mg Ondansetron HCl (Ondansetron Hcl 4 Mg/2 Ml Vial) 4 mg IVPUSH Q8H PRN PRN Reason: Nausea and Vomiting Last Admin: 04/09/22 13:04 Dose: 4 mg Oxycodone HCl (Oxycodone Hcl Immed Release 5 Mg Tablet) 5 mg PO Q4H PRN PRN Reason: Pain, Severe (Pain Scale 7-10) Last Admin: 04/21/22 11:59 Dose: 5 mg Pharmacy Consult (Consult Rx Perform Med Rec) 1 each MISCELLANE ONCE PRN PRN Reason: Consult order Pregabalin (Pregabalin 75 Mg Capsule) 75 mg PO BEDTIME [facility] Last Admin: 04/20/22 20:22 Dose: Not Given Simethicone (Simethicone 80 Mg Tab.Chew) 80 mg PO QIDWMHS [facility] Last Admin: 04/21/22 11:52 Dose: 80 mg Sodium Chloride (0.9 % Sodium Chloride Flush 3 Ml Syringe) 3 ml IVFLUSH QSHIFT [facility] Last Admin: 04/21/22 09:19 Dose: 3 ml Spironolactone (Spironolactone 25 Mg Tablet) 12.5 mg PO DAILY [facility]; Protocol Last Admin: 04/21/22 11:51 Dose: 12.5 mg Home Medications Medication Instructions Recorded Confirmed Last Taken Type acetaminophen 500 mg tablet 1,000 mg PO Q6H PRN Back Pain 04/08/22 04/08/22 Unknown History albuterol sulfate 2.5 mg/3 mL 2 vial inhalation Q4H PRN wheezing 04/08/22 04/08/22 Unknown History (0.083 %) solution for nebulization albuterol sulfate 90 mcg/actuation 2 puff inhalation Q4H PRN wheezing 04/08/22 04/08/22 Unknown History aerosol inhaler ascorbic acid (vitamin C) 500 mg 500 mg PO DAILY 04/08/22 04/08/22 04/07/22 09:00 History tablet (Vitamin C) aspirin 81 mg tablet,delayed 81 mg PO DAILY 04/08/22 04/08/22 04/07/22 09:00 History release atenolol 50 mg tablet 1 tab PO DAILY 04/08/22 04/08/22 04/07/22 09:00 History atorvastatin 40 mg tablet 1 tab PO DAILY 04/08/22 04/08/22 04/07/22 09:00 History calcium carbonate 600 mg-vitamin 1 tab PO DAILY 04/08/22 04/08/22 04/07/22 09:00 History D3 5 mcg (200 unit) tablet diazepam 5 mg tablet 1 tab PO BEDTIME PRN restless legs 04/08/22 04/08/22 Unknown History fluticasone propionate 50 2 spray intranasal DAILY 04/08/22 04/08/22 04/07/22 09:00 History mcg/actuation nasal spray,suspension melatonin 5 mg tablet 5 mg PO BEDTIME PRN Insomnia 04/08/22 04/08/22 Unknown History multivitamin 1 tab PO DAILY 04/08/22 04/08/2204/07/23 09:00 History omeprazole 20 mg capsule,delayed 1 cap PO DAILY@0630 04/08/22 04/08/22 04/07/22 09:00 History release pregabalin 50 mg capsule 1 cap PO BEDTIME 04/08/22 04/08/22 Unknown History vitamin E 268 mg (400 unit) capsule 268 mg PO DAILY 04/08/22 04/08/22 04/07/22 09:00 History Physical Exam Vital Signs: Vital Signs: Last Vital Signs Temp 97.4 F 04/21/22 07:12 Pulse 69 04/21/22 07:12 Resp 20 04/21/22 07:12 BP 150/77 H 04/21/22 07:12 Pulse Ox 98 04/21/22 07:12 O2 Del Method 04/21/22 07:12 O2 Flow Rate 2 04/21/22 07:12 BMI result Body Mass Index 25.6 Const: General: comfortable and no acute distress Orientation/consciousness: patient oriented x3 Neck: Neck: Yes no lymphadenopathy Resp: Auscultation: clear to auscultation bilaterally Cardio: Rhythm: regular rhythm GI: Other: tender on the left groin area, otherwise abdomen is soft, nondistended, no guarding or rebound, no other areas of tenderness, exam very benign Palpation (GI): Soft to palpation, nontender and no guarding Neuro: General: patient oriented x3 Results Labs 04/19/22 06:16 04/21/22 06:02 Labs: Abnormal lab results 04/21/22 Range/Units 06:02 Anion Gap 10 L (12-20) BMP 04/21/22 06:02 Sodium 135 Potassium 4.0 Chloride 100 Carbon Dioxide 29 BUN 11 Creatinine 0.69 Calcium 8.6 Urine 04/07/22 Range/Units 22:18 Urine Color Yellow Urine Appearance Clear Urine pH 7.0 (5.0-9.0) Ur Specific [place] <= 1.005 (1.005-1.025) Urine Protein Negative (Neg-Trace) mg/dL Urine Glucose (UA) Negative (Negative) mg/dL All other labs normal. Laboratory Results WBC 10.5 X10*3/uL (4.8-10.8) 04/19/22 06:16 RBC 4.23 X10*6/uL (4.20-5.50) 04/19/22 06:16 Hgb 13.5 g/dl (12.0-16.0) 04/19/22 06:16 Hct 39.2 % (37.0-47.0) 04/19/22 06:16 MCV 92.7 fL (80.0-98.0) 04/19/22 06:16 MCH 31.9 pg (27.0-33.0) 04/19/22 06:16 MCHC 34.4 g/dl (31.0-35.0) 04/19/22 06:16 RDW 14.2 % (11.0-16.0) 04/19/22 06:16 Plt Count 206 X10*3/uL (160-400) 04/19/22 06:16 MPV 9.8 fL (9.4-12.3) 04/19/22 06:16 Immature Gran % (Auto) 0.4 % (0.0-0.4) 04/07/22 20:50 Neut % (Auto) 74.4 % (45-73) H 04/07/22 20:50 Lymph % (Auto) 13.2 % (20-40) L 04/07/22 20:50 [place] % (Auto) 10.3 % (2-11) 04/07/22 20:50 Eos % (Auto) 1.3 % (0-4) 04/07/22 20:50 Baso % (Auto) 0.4 % (0-2) 04/07/22 20:50 Lymph # (Auto) 1.0 X10*3/uL (1.2-4.9) L 04/07/22 20:50 [place] # (Auto) 0.8 X10*3/uL (0.1-1.2) 04/07/22 20:50 Eos # (Auto) 0.1 X10*3/uL (0.0-0.4) 04/07/22 20:50 Baso # (Auto) 0.0 X10*3/uL (0.0-0.2) 04/07/22 20:50 Abs Immat Gran (auto) 0.03 X10*3/uL (0.00-0.03) 04/07/22 20:50 Absolute Neuts (auto) 5.6 x10*3/uL (2.0-8.3) 04/07/22 20:50 Absolute Nucleated RBC 0.000 X10*3/uL (0.0-0.012) 04/19/22 06:16 Nucleated RBC % (auto) 0.0 /100WBC (0.0-0.2) 04/19/22 06:16 ESR 2 MM/HR (0-20) 04/20/22 18:13 D-Dimer High Sensitivty 816 NG/ML 04/07/22 19:14 Sodium 135 mmol/L (135-145) 04/21/22 06:02 Potassium 4.0 mmol/L (3.3-5.1) 04/21/22 06:02 Chloride 100 mmol/L (96-108) 04/21/22 06:02 Carbon Dioxide 29 mmol/L (22-29) 04/21/22 06:02 Anion Gap 10 (12-20) L 04/21/22 06:02 BUN 11 mg/dL (9-16) 04/21/22 06:02 Creatinine 0.69 mg/dL (0.5-1.4) 04/21/22 06:02 Estim Creat Clear Calc 65.1 04/21/22 06:02 Estimated GFR > 60 04/21/22 06:02 Random Glucose 87 mg/dL (60-115) 04/21/22 06:02 Fasting Glucose 80 mg/dL (60-99) 04/16/22 06:11 Calcium 8.6 mg/dL (8.4-10.2) 04/21/22 06:02 Magnesium 1.7 mg/dL (1.6-2.6) 04/19/22 14:51 Total Bilirubin 0.5 mg/dL (0.0-1.0) 04/15/22 05:24 Direct Bilirubin 0.2 mg/dL (0.0-0.5) 04/15/22 05:24 AST 14 U/L (5-31) 04/15/22 05:24 ALT 19 U/L (0-31) 04/15/22 05:24 Alkaline Phosphatase 43 U/L (39-117) 04/15/22 05:24 Troponin I High Sens 4.0 ng/L (<3.5-17.0) 04/11/22 19:16 C-Reactive Protein 0.22 mg/dL (< or = 0.50) 04/11/22 05:37 B-Natriuretic Peptide 225 pg/mL (<100) H 04/15/22 05:24 Total Protein 5.1 g/dL (6.5-8.0) L 04/15/22 05:24 Albumin 3.4 g/dL (3.5-5.0) L 04/15/22 05:24 Lipase 16 U/L (8-78) 04/07/22 21:20 Urine Color Yellow 04/07/22 22:18 Urine Appearance Clear 04/07/22 22:18 Urine pH 7.0 (5.0-9.0) 04/07/22 22:18 Ur Specific [place] <= 1.005 (1.005-1.025) 04/07/22 22:18 Urine Protein Negative mg/dL (Neg-Trace) 04/07/22 22:18 Urine Glucose (UA) Negative mg/dL (Negative) 04/07/22 22:18 Urine Ketones Negative mg/dL (Negative) 04/07/22 22:18 Urine Blood Negative (Negative) 04/07/22 22:18 Urine Nitrite Negative (Negative) 04/07/22 22:18 Ur Leukocyte Esterase Negative (Negative) 04/07/22 22:18 IgE 15 kU/L (<HS=277) 04/10/22 05:37 Rheumatoid Factor < 13.0 IU/mL (<15.0) 04/11/22 05:37 FAMILIA Screen NEGATIVE (NEGATIVE) 04/11/22 05:37 FAMILIA Titer TNP 04/11/22 05:37 FAMILIA Titer 2 TNP 04/11/22 05:37 FAMILIA Titer 3 TNP 04/11/22 05:37 FAMILIA Pattern TNP 04/11/22 05:37 FAMILIA Pattern 2 TNP 04/11/22 05:37 FAMILIA Pattern 3 TNP 04/11/22 05:37 COVID-19 (DICK) Negative (Negative) 04/19/22 11:12 COVID-19 Clin Com See Note 04/19/22 11:12 Influenza Type A (PCR) NEGATIVE (Negative) 04/07/22 19:05 Influenza Type B (PCR) NEGATIVE (Negative) 04/07/22 19:05 Ur L.pneumophila Ag Not Detected (Not Detected) 04/10/22 12:44 RSV RNA Qual (PCR) NEGATIVE (Negative) 04/07/22 19:05 SARS-CoV-2 RNA (RT-PCR) NEGATIVE (Negative) 04/07/22 19:05 Impressions Chest CTA 04/07/22 22:23 IMPRESSION: * No pulmonary embolism. * No acute findings within the chest, abdomen or pelvis. * Moderate to severe emphysema. * Triple vessel coronary calcifications. * There is a 3.3 cm cyst in the right adnexa, below a 2.3 cm solid appearing structure which may represent the right ovary, although could represent an ovarian mass. Recommend nonemergent pelvic ultrasound for further evaluation VTE: negative Venous Duplex 04/08/22 00:27 IMPRESSION: No DVT demonstrated in the left lower extremity. Pelvic/Transvag US 04/08/22 20:11 IMPRESSION: Status post hysterectomy and left oophorectomy. Two adjacent simple-appearing right adnexal cysts. Barium Swallow X-Ray 04/10/22 10:01 IMPRESSION: No esophageal stricture or mucosal abnormality identified. 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 Single episode of pharyngeal penetration without tracheal aspiration. Chest X-Ray 04/10/22 11:00 IMPRESSION: Chronic changes of the lungs without acute process. Myocardial Perfusion Scan Nuc Med 04/17/22 09:30 Impression: 1. 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 Suboptimal study. 2. Gated LVEF is 51% during stress and 64% during rest. 3. Transient ischemic dilatation not present. EKG component of the test reported separately. Abdomen/Pelvis CT 04/20/22 13:26 IMPRESSION: 1. Mild mesenteric edema in the right mid pelvis but no pneumatosis, free air or free fluid seen. 2. Minimal left paracolic fluid collection. 3. Small fluid collection in the left proximal inguinal ring. 4. Mild constipation. 5. Bilateral renal cysts. No radiopaque renal calculi or hydronephrosis. Fleischner guidelines were followed. Assessment and Plan (1) Abdominal pain: Status: Acute I have reviewed her CAT scan with the radiologist. There was note of a small fluid collection on the left groin above the hernia repair site which is likely to be seromatous . This was not seen on her CT scan done admission 2 weeks ago. There are no other new changes in her no CT scan. There was note of what appeared to be right adnexal cyst seen also on ultrasound previously. There is question of some mild edema of the mesentery. Otherwise, there is no evidence of an obstruction or any acute inflammatory process in the peritoneal cavity. Her exam is otherwise benign. I had a long discussion with her and her daughter with regards to the above findings. I told her that overall, her CAT scan does not really suggest any urgent pathology. Again, the fluid seen in the old left inguinal hernia repair site appears to be seromatous. She says that she had been following her surgeon in [facility] so if she does get discharged, it will be best for her to seen you to follow with them. I would recommend keeping her until tomorrow so I can continue to follow her for this new finding on the CT scan. Time Spent With Patient Time: Total time managing care of this patient today ____ minutes. Procedures Date of Service Date of Service: 04/21/22
--- NOTE | 2022-04-21 12:39 | P.PNIM_ITS ---
Subjective Subjective Date of Service: 04/21/22 Interval History: the patient was seen and evaluated this morning Improved but still complaining of left lower quadrant abdominal pain Blood pressure has improved No reported episodes of diarrhea No reported other overnight events. Review of Systems Review of Systems: Yes all other systems are reviewed and are negative Physical Exam Vital Signs: Vital Signs: Last Vital Signs Temp 98.1 F 04/21/22 12:00 Pulse 71 04/21/22 12:00 Resp 20 04/21/22 12:00 BP 135/96 H 04/21/22 12:00 Pulse Ox 96 04/21/22 12:00 O2 Del Method 04/21/22 12:00 O2 Flow Rate 1 04/21/22 12:00 BMI result Body Mass Index 25.6 Const: Other: Constitutional : Awake, interactive, not in distress Neck : Normal inspection, Supple Cardiovascular : RRR, no JVP, trace bilateral lower extremity edema Respiratory : good bilateral air entry, no crackles, wheezes or rhonchi Gastrointestinal: soft, lax, Normal bowel sounds, mild left lower quadrant tenderness, no surgical signs Skin : Warm, Dry Neurological : Alert & oriented x3, No focal deficit , having generalized tremors Objective Data Active Medications Acetaminophen (Acetaminophen 325 Mg Tablet) 650 mg PO Q6H PRN PRN Reason: Pain, Mild (Pain Scale 1-3) Last Admin: 04/20/22 09:49 Dose: 650 mg Documented By: LENI Albuterol Sulfate (Albuterol Sulfate (0.083%) 2.5 Mg/3 Ml Vial.Neb) 2.5 mg INHALE Q4H PRN PRN Reason: Shortness of Breath/Wheezing Aspirin (Aspirin Enteric Coated 81 Mg Tablet.) 81 mg PO DAILY [facility] Last Admin: 04/21/22 09:17 Dose: 81 mg Documented By: JANETTE Atenolol (Atenolol 50 Mg Tablet) 50 mg PO DAILY [facility]; Protocol Last Admin: 04/21/22 09:17 Dose: 50 mg Documented By: JANETTE Atorvastatin Calcium (Atorvastatin Calcium 40 Mg Tablet) 40 mg PO DAILY [facility] Last Admin: 04/21/22 09:15 Dose: 40 mg Documented By: JANETTE Albuterol Sulfate 2.5 mg/ (Ipratropium [place] 0.5 mg) 0 mg INHALE RQ6H WHILE AWAKE [facility] Last Admin: 04/21/22 11:07 Dose: Not Given Documented By: GAUDENCIO Non-Admin Reason: new order/pt not avail Diazepam (Diazepam 2 Mg Tablet) 1 mg PO BEDTIME PRN PRN Reason: Restlessness Last Admin: 04/18/22 22:33 Dose: 1 mg Documented By: MARICHUYILHollie Dicyclomine HCl (Dicyclomine Hcl 10 Mg Capsule) 10 mg PO TIDAC PRN PRN Reason: Abdominal pain Docusate Sodium (Docusate Sodium 100 Mg Capsule) 100 mg PO DAILY PRN PRN Reason: Constipation Last Admin: 04/11/22 10:04 Dose: 100 mg Documented By: LENI Enoxaparin Sodium (Enoxaparin Sodium 40 Mg/0.4 Ml Syringe) 40 mg SUBCUT DAILY@0600 [facility] Last Admin: 04/17/22 07:49 Dose: Not Given Documented By: MERRY Non-Admin Reason: Patient Asleep Fluconazole (Fluconazole 100 Mg Tablet) 200 mg PO DAILY [facility] Last Admin: 04/21/22 09:16 Dose: 200 mg Documented By: JANETTE Fluticasone Propionate (Fluticasone Propionate Nasal 16 Gm [place]) 2 spray NOSTRIL-B DAILY [facility] Last Admin: 04/21/22 09:18 Dose: 2 spray Documented By: JANETTE Furosemide (Furosemide 40 Mg Tablet) 40 mg PO DAILY [facility]; Protocol Last Admin: 04/21/22 09:15 Dose: 40 mg Documented By: JANETTE Guaifenesin (Guaifenesin 100 Mg/5 Ml Liquid) 5 ml PO Q6H PRN PRN Reason: Cough Last Admin: 04/15/22 13:08 Dose: 5 ml Documented By: JOSE ROBERTO Isosorbide Mononitrate (Isosorbide Mononitrate 30 Mg Tab.Er.24h) 30 mg PO DAILY [facility]; Protocol Last Admin: 04/20/22 09:01 Dose: 30 mg Documented By: LENI Melatonin (Melatonin 3 Mg Tablet) 6 mg PO BEDTIME PRN PRN Reason: Sleep Last Admin: 04/18/22 22:32 Dose: 6 mg Documented By: DEMETRI Melatonin (Melatonin 3 Mg Tablet) 6 mg PO BEDTIME PRN PRN Reason: Insomnia Multivitamins/Vitamin C (Multivitamin Tablet) 1 tab PO DAILY [facility] Last Admin: 04/21/22 09:16 Dose: 1 tab Documented By: JANETTE Pt Own (Fluticasone- Umeclidin-Vilanter [ Trelegy Ellipta] 100 -62.5-25 Mcg 1 puff INHALE RDAILY [facility] Last Admin: 04/21/22 09:18 Dose: 1 puff Documented By: JANETTE Nystatin (Nystatin Powder 15 Gm Bottle) 1 appl TOPICAL BID [facility]; Protocol Last Admin: 04/21/22 09:18 Dose: 1 appl Documented By: JANETTE Omeprazole (Omeprazole 40 Mg Capsule.Dr) 40 mg PO BID@0630,1630 [facility] Last Admin: 04/21/22 06:10 Dose: 40 mg Documented By: SARAH Ondansetron HCl (Ondansetron Hcl 4 Mg/2 Ml Vial) 4 mg IVPUSH Q8H PRN PRN Reason: Nausea and Vomiting Last Admin: 04/09/22 13:04 Dose: 4 mg Documented By: LISA Oxycodone HCl (Oxycodone Hcl Immed Release 5 Mg Tablet) 5 mg PO Q4H PRN PRN Reason: Pain, Severe (Pain Scale 7-10) Last Admin: 04/21/22 11:59 Dose: 5 mg Documented By: JANETTE Pharmacy Consult (Consult Rx Perform Med Rec) 1 each MISCELLANE ONCE PRN PRN Reason: Consult order Pregabalin (Pregabalin 75 Mg Capsule) 75 mg PO BEDTIME [facility] Last Admin: 04/20/22 20:22 Dose: Not Given Documented By: SARAH Non-Admin Reason: Patient Refused Simethicone (Simethicone 80 Mg Tab.Chew) 80 mg PO QIDWMHS [facility] Last Admin: 04/21/22 11:52 Dose: 80 mg Documented By: JANETTE Sodium Chloride (0.9 % Sodium Chloride Flush 3 Ml Syringe) 3 ml IVFLUSH QSHIFT [facility] Last Admin: 04/21/22 09:19 Dose: 3 ml Documented By: JANETTE Spironolactone (Spironolactone 25 Mg Tablet) 12.5 mg PO DAILY [facility]; Protocol Last Admin: 04/21/22 11:51 Dose: 12.5 mg Documented By: JANETTE Labs 04/19/22 06:16 04/21/22 06:02 Labs: Laboratory Results - last 24 hr 04/20/22 04/21/22 18:13 06:02 ESR 2 Anion Gap 10 L Estim Creat Clear Calc 65.1 Estimated GFR > 60 Random Glucose 87 Calcium 8.6 Assessment and Plan (1) COPD exacerbation: Status: Acute (2) CAD (coronary artery disease): Status: Acute (3) Acute CHF: Status: Acute (4) Acute respiratory failure with hypoxia: Status: Acute (5) Bilateral lower extremity edema: Status: Acute (6) Abdominal pain: Status: Acute (7) Vicky esophagitis: Status: Acute Plan 76-year-old female with past medical history of COPD, CHF presents to the hospital with complaints of abdominal pain found to be hypoxic acute hypoxic respiratory failure due to copd with acute decopmensation and acute on chronic diastolic chf weaned off O2 pulm input appreciated Resume nebs P.o. Lasix cardio input appreciated, stress test done, showed nontransmural infarct in the apical anterior, adjustment apex and basal inferoseptal daniels.? Was thought to be a suboptimal study.? Left lower quadrant pain Diarrhea resolved CT abdomen with contrast showing nonspecific findings with small fluid collection in the left groin suspicious for seroma. Surgery input appreciated, monitor overnight Postural hypotension Resolved Secondary to multiple BP meds and possibly dicyclomine side effect DC losartan and isosorbide for now hyponatermia monitor, mild hyperkalemia resolved Candidal esophagitis gi appreciated, Continue bentyl, Simethicone EGD showed Vicky esophagitis, likely 2/2 steroid usage continue ppi Continue Diflucan day 4 hypertension Continue dual Start small dose of spironolactone CAD asa, statin plan for cath when resp status improved dvt prophylaxis - lovenox reason for continued hospitalization: Pending surgical follow-up for abnormal CT scan abdominal pain and safe discharge plan Time Spent With Patient Time: Total time managing care of this patient today ____ minutes. Quality Stroke Does the patient have a stroke diagnosis?: No VTE Prior VTE?: No VTE Risk Level:: Medical - moderate - high VTE Device Contraindication: Treatment Not Indicated VTE Drug Contraindication: N/A - Med Ordered
[2022-04-22] VITALS: PULSE 66; O2SAT 100
[2022-04-22 04:00] VITALS: BP 148/67; PULSE 80; RESP 18; TEMP 36.2; O2SAT 98
[2022-04-22] MEDS: Omeprazole 40 MG CAPSULE.DR PO (06:00)
[2022-04-22 07:10] VITALS: BP 145/76; PULSE 79; RESP 16; TEMP 36.6; O2SAT 95
[2022-04-22 07:55] VITALS: PULSE 84; RESP 16; O2SAT 93
[2022-04-22] MEDS: Aspirin Enteric Coated 81 MG TABLET.DR PO (09:22)
[2022-04-22] MEDS: Fluconazole 100 MG TABLET 200 MG PO (09:23)
[2022-04-22] MEDS: atenoloL 50 MG TABLET PO (09:23)
[2022-04-22] MEDS: 0.9 % Sodium Chloride Flush 3 ML SYRINGE IVFLUSH (09:23)
[2022-04-22] MEDS: Simethicone 80 MG TAB.CHEW PO ×2 (09:23→12:01)
[2022-04-22] MEDS: Atorvastatin Calcium 40 MG TABLET PO (09:26)
[2022-04-22] MEDS: Multivitamin TABLET 1 TAB PO (09:32)
[2022-04-22] MEDS: Spironolactone 25 MG TABLET 12.5 MG PO (09:32)
[2022-04-22] MEDS: Docusate Sodium 100 MG CAPSULE PO (09:39)
[2022-04-22] MEDS: Fluticasone Propionate Nasal 16 GM SPRAY 2 SPRAY NOSTRIL-B (09:40)
[2022-04-22] MEDS: Furosemide 40 MG TABLET PO (09:45)
[2022-04-22] MEDS: Nystatin Powder 15 GM BOTTLE 1 APPL TOPICAL (09:46)
--- NOTE | 2022-04-22 10:43 | P.PNGS_ITS ---
Subjective Subjective Date of Service: 04/22/22 Interval history: tolerating diet wel no new complaints no events reported left groin pain same , not worse mild epig pain Physical Exam Vital Signs: Vital Signs: Last Vital Signs Temp 97.8 F 04/22/22 07:10 Pulse 84 04/22/22 07:55 Resp 16 04/22/22 07:55 BP 145/76 H 04/22/22 07:10 Pulse Ox 95 04/22/22 07:10 O2 Del Method 04/22/22 07:10 O2 Flow Rate 2 04/22/22 07:10 BMI result Body Mass Index 25.6 Const: Other: looks well General: comfortable and no acute distress Resp: Effort & Inspection: normal respiratory effort Cardio: Rate: regular rate GI: Other: mild tenderness on left groin, no evidence of recurrent hernia Inspection: No distended Palpation (GI): Soft to palpation, not firm and no guarding Objective Data Active Medications Acetaminophen (Acetaminophen 325 Mg Tablet) 650 mg PO Q6H PRN PRN Reason: Pain, Mild (Pain Scale 1-3) Last Admin: 04/20/22 09:49 Dose: 650 mg Documented By: LENI Albuterol Sulfate (Albuterol Sulfate (0.083%) 2.5 Mg/3 Ml Vial.Justine) 2.5 mg INHALE Q4H PRN PRN Reason: Shortness of Breath/Wheezing Aspirin (Aspirin Enteric Coated 81 Mg Tablet.) 81 mg PO DAILY [facility] Last Admin: 04/22/22 09:22 Dose: 81 mg Documented By: KLAUS Atenolol (Atenolol 50 Mg Tablet) 50 mg PO DAILY [facility]; Protocol Last Admin: 04/22/22 09:23 Dose: 50 mg Documented By: KLAUS Atorvastatin Calcium (Atorvastatin Calcium 40 Mg Tablet) 40 mg PO DAILY [facility] Last Admin: 04/22/22 09:26 Dose: 40 mg Documented By: KLAUS Albuterol Sulfate 2.5 mg/ (Ipratropium [place] 0.5 mg) 0 mg INHALE RQ6H WHILE AWAKE [facility] Last Admin: 04/22/22 07:53 Dose: 2.5 each Documented By: MINE Diazepam (Diazepam 2 Mg Tablet) 1 mg PO BEDTIME PRN PRN Reason: Restlessness Last Admin: 04/18/22 22:33 Dose: 1 mg Documented By: DEMETRI Dicyclomine HCl (Dicyclomine Hcl 10 Mg Capsule) 10 mg PO TIDAC PRN PRN Reason: Abdominal pain Docusate Sodium (Docusate Sodium 100 Mg Capsule) 100 mg PO DAILY PRN PRN Reason: Constipation Last Admin: 04/22/22 09:39 Dose: 100 mg Documented By: KLAUS Enoxaparin Sodium (Enoxaparin Sodium 40 Mg/0.4 Ml Syringe) 40 mg SUBCUT DAILY@0600 [facility] Last Admin: 04/17/22 07:49 Dose: Not Given Documented By: MERRY Non-Admin Reason: Patient Asleep Fluconazole (Fluconazole 100 Mg Tablet) 200 mg PO DAILY [facility] Last Admin: 04/22/22 09:23 Dose: 200 mg Documented By: KLAUS Fluticasone Propionate (Fluticasone Propionate Nasal 16 Gm [place]) 2 spray NOSTRIL-B DAILY [facility] Last Admin: 04/22/22 09:40 Dose: 2 spray Documented By: KLAUS Furosemide (Furosemide 40 Mg Tablet) 40 mg PO DAILY [facility]; Protocol Last Admin: 04/22/22 09:45 Dose: 40 mg Documented By: KLAUS Guaifenesin (Guaifenesin 100 Mg/5 Ml Liquid) 5 ml PO Q6H PRN PRN Reason: Cough Last Admin: 04/15/22 13:08 Dose: 5 ml Documented By: JOSE ROBERTO Isosorbide Mononitrate (Isosorbide Mononitrate 30 Mg Tab.Er.24h) 30 mg PO DAILY [facility]; Protocol Last Admin: 04/20/22 09:01 Dose: 30 mg Documented By: LENI Melatonin (Melatonin 3 Mg Tablet) 6 mg PO BEDTIME PRN PRN Reason: Sleep Last Admin: 04/18/22 22:32 Dose: 6 mg Documented By: DEMETRI Melatonin (Melatonin 3 Mg Tablet) 6 mg PO BEDTIME PRN PRN Reason: Insomnia Multivitamins/Vitamin C (Multivitamin Tablet) 1 tab PO DAILY [facility] Last Admin: 04/22/22 09:32 Dose: 1 tab Documented By: KLAUS Pt Own (Fluticasone- Umeclidin-Vilanter [ Trelegy Ellipta] 100 -62.5-25 Mcg 1 puff INHALE RDAILY [facility] Last Admin: 04/22/22 07:56 Dose: 1 puff Documented By: MINE Nystatin (Nystatin Powder 15 Gm Bottle) 1 appl TOPICAL BID [facility]; Protocol Last Admin: 04/22/22 09:46 Dose: 1 appl Documented By: KLAUS Omeprazole (Omeprazole 40 Mg Capsule.Dr) 40 mg PO BID@0630,1630 [facility] Last Admin: 04/22/22 06:00 Dose: 40 mg Documented By: GENTRY Ondansetron HCl (Ondansetron Hcl 4 Mg/2 Ml Vial) 4 mg IVPUSH Q8H PRN PRN Reason: Nausea and Vomiting Last Admin: 04/09/22 13:04 Dose: 4 mg Documented By: DUNIAORRMelina Oxycodone HCl (Oxycodone Hcl Immed Release 5 Mg Tablet) 5 mg PO Q4H PRN PRN Reason: Pain, Severe (Pain Scale 7-10) Last Admin: 04/21/22 21:28 Dose: 5 mg Documented By: TRAN Pharmacy Consult (Consult Rx Perform Med Rec) 1 each MISCELLANE ONCE PRN PRN Reason: Consult order Pregabalin (Pregabalin 75 Mg Capsule) 75 mg PO BEDTIME [facility] Last Admin: 04/21/22 21:29 Dose: Not Given Documented By: TRAN Non-Admin Reason: Patient Refused Simethicone (Simethicone 80 Mg Tab.Chew) 80 mg PO QIDWMHS [facility] Last Admin: 04/22/22 09:23 Dose: 80 mg Documented By: KLAUS Sodium Chloride (0.9 % Sodium Chloride Flush 3 Ml Syringe) 3 ml IVFLUSH QSHIFT [facility] Last Admin: 04/22/22 09:23 Dose: 3 ml Documented By: KLAUS Spironolactone (Spironolactone 25 Mg Tablet) 12.5 mg PO DAILY [facility]; Protocol Last Admin: 04/22/22 09:32 Dose: 12.5 mg Documented By: KLAUS Labs 04/19/22 06:16 04/21/22 06:02 Procedures Date of Service Date of Service: 04/22/22 Progress Note: A&P Assessment and plan (1) Left groin pain: Status: Acute Assessment and Plan: fluid on left groin seen on CT above repair site appears seromatous no cellulitis no evidence of recurrent hernia good GI function epig pain may be manifestation of esophagitis no fever discussed with pt and daughter Yulia - they are comfortable with discharge today and state they can ffup in office with me or her original surgeon in [facility] Time Spent With Patient Time: Total time managing care of this patient today ____ minutes. Quality Stroke Does the patient have a stroke diagnosis?: No VTE Prior VTE?: No VTE Risk Level:: Medical - moderate - high VTE Device Contraindication: Treatment Not Indicated VTE Drug Contraindication: N/A - Med Ordered
--- NOTE | 2022-04-22 11:18 | MHC.CM.PN ---
[facility] to [facility] rebooked for today at 330
--- NOTE | 2022-04-22 11:21 | PM.GIPN ---
Subjective Subjective Date of Service: 04/22/22 Interval History: she reports bloating is improved. still has some abdominal discomfort Critical Care Time (minutes): 0 Physical Exam Vital Signs: Vital Signs: Last Vital Signs Temp 97.8 F 04/22/22 07:10 Pulse 84 04/22/22 07:55 Resp 16 04/22/22 07:55 BP 145/76 H 04/22/22 07:10 Pulse Ox 95 04/22/22 07:10 O2 Del Method 04/22/22 07:10 O2 Flow Rate 2 04/22/22 07:10 BMI result Body Mass Index 25.6 GI: Other: abdomen is soft. Objective Data Labs 04/19/22 06:16 04/21/22 06:02 Procedures Date of Service Date of Service: 04/22/22 Progress Note: A&P Assessment and plan (1) Vicky esophagitis: Status: Acute Assessment and Plan: overall seems improved from admission continue diflucan for 14 days. f/u bx results dicyclomine prn abd cramps Time Spent With Patient Time: Total time managing care of this patient today ____ minutes. Quality Stroke Does the patient have a stroke diagnosis?: No VTE Prior VTE?: No VTE Risk Level:: Medical - moderate - high VTE Device Contraindication: Treatment Not Indicated VTE Drug Contraindication: N/A - Med Ordered
[2022-04-22 12:00] VITALS: BP 138/78; PULSE 70; RESP 18; TEMP 36.6; O2SAT 94
[2022-04-22] MEDS: Sertraline HCL 25 MG TABLET PO (12:01)
== END 2022-04-22 16:00 | disposition skilled nursing facility (03) | DRG 291 ==
LOC: HO.ED 04-08 00:12 → HO.EDOVER 04-08 01:21 → HO.IMC 04-08 11:07
PROVIDERS: Hospitalist; Internal Medicine; Internal Medicine Gastroenterology; Physician Assistant; Admitting Provider Internal Medicine; Emergency Provider Internal Medicine; PCP Internal Medicine; Visit Provider Student in an Organized Health Care Education/Training Program
PROC: 0DJ08ZZ Inspection of Upper Intestinal Tract, Via Natural or Artificial Opening Endoscopic (ICD-10-PCS; CPT 43235; principal; 2022-04-18 11:00)
DX: I11.0 Hypertensive heart disease with heart failure (principal); I50.33 Acute on chronic diastolic (congestive) heart failure; J96.01 Acute respiratory failure with hypoxia; E87.1 Hypo-osmolality and hyponatremia; B37.81 Candidal esophagitis; E87.5 Hyperkalemia; I25.10 Atherosclerotic heart disease of native coronary artery without angina pectoris; E78.00 Pure hypercholesterolemia, unspecified; I95.2 Hypotension due to drugs; J43.9 Emphysema, unspecified; I27.20 Pulmonary hypertension, unspecified; Z20.822 Contact with and (suspected) exposure to COVID-19; Z87.891 Personal history of nicotine dependence; Z88.8 Allergy status to other drugs, medicaments and biological substances; Z79.82 Long term (current) use of aspirin; Z79.899 Other long term (current) drug therapy
CPT/HCPCS: 0241U; 36415; 71045; 71275; 74177; 74220; 76830; 76856; 78452; 80048; 80053; 80076; 81003; 82785; 83690; 83735; 83880; 84484; 85025; 85027; 85379; 85652; 86038; 86039; 86140; 86431; 87449; 87635; 88305; 88312; 88313; 88342; 93005; 93017; 93306; 93971; 96374; 96375; 97116; 97162; 97530; 99285; A9500; J0280; J1650; J1940; J2250; J2270; J2405; J2785; J2920; Q9957; Q9967

== ENCOUNTER 2022-09-22 11:59 | Outpatient (REF) | payer MEDICARE, OTHER, SELFPAY ==
[2022-09-22 12:16] VITALS: BMI 23.2
[2022-09-22 12:17] VITALS: BP 123/68; PULSE 61; RESP 16; TEMP 36.4; O2SAT 97
== END 2022-09-22 12:00 | disposition home or self-care (01) ==
LOC: HO.MS 11:59
PROVIDERS: PCP Internal Medicine; Visit Provider Ophthalmology
PROC: (CPT 66821; principal; 2022-09-22 13:50)
DX: H26.492 Other secondary cataract, left eye (principal)
CPT/HCPCS: 66821